=== PATIENT | female | born 1935 | race Caucasian/White ===

== ENCOUNTER → 2017-03-28 | Outpatient (CLI) | payer MEDICARE ==
--- NOTE | 2017-03-28 14:51 | XR ---
EXAMINATION TYPE: XR knee complete RT DATE OF EXAM: 03/28/2017 COMPARISON: NONE HISTORY: Muscle weakness TECHNIQUE: Right knee is examined in 3 views. FINDINGS: Joint spaces appear preserved. Some mild osteopenia may be within the joint space. No joint effusion is evident. IMPRESSION: 1. There may be some mild articular osteopenia. Correlate with bone density. 2. No acute osseous abnormality.
--- NOTE | 2017-03-28 14:53 | XR ---
EXAMINATION TYPE: XR lumbosacral spine min 4V DATE OF EXAM: 03/28/2017 COMPARISON: NONE HISTORY: Right leg gives out unable to climb stairs TECHNIQUE: 5 view lumbar spine FINDINGS: There is a grade 1 spondylolisthesis of L4 anterior and L5. Disc space narrowing is present L4-5. Milder disc space narrowing is present in the mid lumbar spine. Facet degenerative changes are present L3-4 through L5-S1. There 5 lumbar-type vertebral bodies. The pedicles are intact. IMPRESSION: 1. Grade 1 spondylolisthesis of L4 anterior and L5. 2. Facet degenerative changes lower lumbar spine.
== END | disposition home or self-care (01) ==
LOC: RADXRYALE 14:10
PROVIDERS: ATTEND Nurse Practitioner Family
DX: M43.16 Spondylolisthesis, lumbar region (principal); M47.816 Spondylosis without myelopathy or radiculopathy, lumbar region
CPT/HCPCS: 72110

== ENCOUNTER → 2017-05-27 | Outpatient (CLI) | payer MEDICARE ==
--- NOTE | 2017-05-27 16:09 | MR ---
EXAMINATION TYPE: MR lumbar spine wo con DATE OF EXAM: 05/27/2017 COMPARISON: NONE HISTORY: Rt leg weakness TECHNIQUE: Multiplanar, multisequence images of the lumbar spine were acquired. L1-L2: Normal disc appearance without desiccation. No herniation, protrusion or disc bulging. No ca nal stenosis is present. Foramina are patent bilaterally. L2-L3: Small left eccentric broad-based disc bulge is seen resulting in mild bilateral neural foramin al narrowing. Ligamentum flavum buckling is also present contributing to mild spinal canal stenosis L3-L4: A eccentric broad-based disc bulge is seen in combination with facet arthropathy and ligamentu m flavum buckling create mild to moderate bilateral neural foraminal narrowing and mild spinal canal stenosis. L4-L5: Disc uncovering is present secondary to the grade 1 anterolisthesis of L4 on L5 creating mild to moderate bilateral neural foraminal narrowing. Ligamentum flavum buckling contributes to severe sp inal canal stenosis just below the intervertebral disc space. L5-S1: Left eccentric broad-based disc bulge with small left paracentral annular tear. Mild bilateral facet arthropathy is also seen with resultant mild bilateral neural foraminal narrowing. No spinal c anal stenosis. Lumbar spine maintains vertebral body heights. There is grade 1 anterolisthesis of L4 on L5. Bone mar row signal is mildly heterogenous but overall within normal limits other than a T1 and T2 hyperintens e vertebral body hemangiomas of L2 and L5. IMPRESSION: 1. Grade 1 anterolisthesis of L4 and L5 creating mild to moderate bilateral neural foraminal narrowin g and severe spinal canal stenosis at this level partially contributed by ligamentum flavum buckling. 2. No focal disc herniation although there is multilevel generative disc disease resulting in variabl e degrees of neural foraminal narrowing most significant at L3-L4 and L4-L5. 3. Mild spinal canal stenosis at L3-L5 as a result of ligamentum flavum buckling, broad-based disc bu lges, and facet arthropathy.
== END | disposition home or self-care (01) ==
LOC: RADMRIMAIN 11:00
PROVIDERS: ATTEND Family Medicine
DX: M48.061 Spinal stenosis, lumbar region without neurogenic claudication (principal); M51.36 Other intervertebral disc degeneration, lumbar region; M51.26 Other intervertebral disc displacement, lumbar region; M43.16 Spondylolisthesis, lumbar region; M99.73 Connective tissue and disc stenosis of intervertebral foramina of lumbar region; M12.88 Other specific arthropathies, not elsewhere classified, other specified site
CPT/HCPCS: 72148

== ENCOUNTER → 2017-09-10 | Outpatient (CLI) | payer MEDICARE ==
[2017-09-10 14:15] LABS: Basophils # (A) 0.1 k/uL (0-0.2); Basophils % (A) 1 %; Eosinophils # (A) 0.3 k/uL (0-0.7); Eosinophils % (A) 6 %; HGB 13.8 gm/dL (11.4-16.0); Lymphocytes # (A) 1.9 k/uL (1.0-4.8); Lymphocytes % (A) 34 %; MCH 30.8 pg (25.0-35.0); MCHC 33.6 g/dL (31.0-37.0); MCV 91.5 fL (80.0-100.0); Mean Platelet Volume 8.1; Monocytes # (A) 0.4 k/uL (0-1.0); Monocytes % (A) 8 %; Neutrophils # (A) 2.6 k/uL (1.3-7.7); Neutrophils % (A) 48 %; Platelet Count 140 k/uL (150-450); RBC 4.48 m/uL (3.80-5.40); RDW 13.3 % (11.5-15.5); WBC 5.5 k/uL (3.8-10.6)
[2017-09-10 14:45] LABS: T4, Free (Free Thyroxine) 1.46 ng/dL (0.78-2.19)
== END | disposition home or self-care (01) ==
LOC: LABWHC1 13:16
PROVIDERS: ATTEND Psychiatry & Neurology Neurology
DX: M60.9 Myositis, unspecified (principal)
CPT/HCPCS: 36415; 82533; 84439; 84443; 85025; 86235

== ENCOUNTER 2018-05-23 16:09 | Emergency (ER) | payer MEDICARE ==
[2018-05-23 16:18] VITALS: BP 139/68; PULSE 85; RESP 18; TEMP 98
--- NOTE | 2018-05-23 17:20 | ED ---
Lower Extremity Injury HPI - General Chief Complaint: Extremity Injury, Lower Stated Complaint: Fall Time Seen by Provider: 05/23/18 16:36 Source: patient, RN notes reviewed Mode of arrival: wheelchair Limitations: no limitations - History of Present Illness Initial Comments: This is a 82-year-old female presents emergency Department chief complaint of a fall. Patient states that her knees buckled and states that she tripped and fell. Patient states she's had happened several times in the past. Patient primarily complains of left foot pain, left knee and right knee pain. Patient denies any head injury no loss conscious. Patient states there is no syncopal episode and she's had no chest pain or shortness breath. Patient states that her neighbor helped her up but it's very painful to walk on her legs. - Related Data Allergies Allergy/AdvReac Type Severity Reaction Status Date / Time No Known Allergies Allergy Verified 05/23/18 16:18 Review of Systems ROS Statement: Those systems with pertinent positive or pertinent negative responses have been documented in the HPI. ROS Other: All systems not noted in ROS Statement are negative. Past Medical History Past Medical History: Hypertension Additional Past Medical History / Comment(s): macular degeneration History of Any Multi-Drug Resistant Organisms: None Reported Past Surgical History: Hysterectomy Past Psychological History: No Psychological Hx Reported Smoking Status: Never smoker Past Alcohol Use History: None Reported Past Drug Use History: None Reported General Exam Limitations: no limitations General appearance: alert, in no apparent distress Head exam: Present: atraumatic, normocephalic, normal inspection Neck exam: Present: normal inspection, full ROM. Absent: tenderness, meningismus, lymphadenopathy Respiratory exam: Present: normal lung sounds bilaterally. Absent: respiratory distress, wheezes, rales, rhonchi, stridor Cardiovascular Exam: Present: regular rate, normal rhythm, normal heart sounds. Absent: systolic murmur, diastolic murmur, rubs, gallop, clicks Extremities exam: Present: other (Mild tenderness bilateral anterior knees, legs are neurovascular intact, there is tenderness to lateral foot on the left and distal tib-fib region on the left. No DEFORMITY no ecchymosis no lacerations. Remaining exam extremity within normal limits) Back exam: Present: full ROM. Absent: tenderness Neurological exam: Present: alert, oriented X3, CN II-XII intact, reflexes normal. Absent: motor sensory deficit Course Vital Signs 05/23/18 16:14 Temperature 98 F Pulse Rate 85 Respiratory 18 Rate Blood Pressure 139/68 O2 Sat by Pulse 98 Oximetry - Reevaluation(s) Reevaluation #1: 05/23/18 18:03 Patient was able to ambulate with walker no difficulty. Medical Decision Making - Medical Decision Making 82-year-old female presented emergency Department for a fall. X-rays obtained. A question possible quadriceps tendon tear. Patient is able to ambulate with no difficulty using a walker. Patient has appointment on Friday for follow-up return parameters were discussed. Disposition Clinical Impression: Fall, Knee pain, Sprain of left foot Disposition: HOME SELF-CARE Condition: Stable Instructions: Knee Sprain (ED), Foot Sprain (ED) Additional Instructions: Please return to the Emergency Department if symptoms worsen or any other concerns. Is patient prescribed a controlled substance at d/c from ED?: No Referrals: Glenny Cancino DO [Primary Care Provider] - 1-2 days Time of Disposition: 18:04
--- NOTE | 2018-05-23 17:32 | XR ---
EXAMINATION TYPE: XR knee complete bilateral DATE OF EXAM: 05/23/2018 CLINICAL HISTORY: Bilateral knee pain after fall injury TECHNIQUE: Three views of the bilateral knees are obtained. COMPARISON: None. FINDINGS: There is no acute fracture/dislocation evident in left knee. In the left knee there is mil d to moderate joint space loss patellofemoral compartment. Patella baja is present. In the right knee there is more prominent patella baja. There is focal soft tissue swelling superior to this raising c oncern for moderate to large suprapatellar joint effusion. There is suspected tiny fragmentation from the anterior tibial tuberosity seen on lateral view. IMPRESSION: There is suspected acute tear of the distal right quadriceps tendon with joint effusion or hematoma and inferior positioning of the patella. This can be confirmed with nonemergent MRI if de sired. Favor patella baja on the left, tear felt much less likely.
--- NOTE | 2018-05-23 17:33 | XR ---
EXAMINATION TYPE: XR tibia fibula LT DATE OF EXAM: 05/23/2018 CLINICAL HISTORY: Pain After fall injury TECHNIQUE: Two views of the left leg are obtained. COMPARISON: Same day bilateral knee x-ray. FINDINGS: There is no acute fracture or dislocation seen in the left tibia or fibula. Demineralizati on is present. Mild to moderate patellofemoral compartment joint space loss left knee is redemonstrat ed. Left ankle joint is felt within normal limits. Few small scattered phleboliths are seen in distal soft tissue. IMPRESSION: There is no acute fracture or dislocation seen in the left tibia or fibula.
--- NOTE | 2018-05-23 17:34 | XR ---
EXAMINATION TYPE: XR foot complete LT DATE OF EXAM: 05/23/2018 CLINICAL HISTORY: Pain after fall TECHNIQUE: Frontal, lateral, and oblique images of the left foot are obtained. COMPARISON: None FINDINGS: Demineralization is present which is noted lower radiographic sensitivity. The Bowers's to e is seen. There is no acute fracture/dislocation evident in the left foot. There is narrowing at the Lisfranc joints with subchondral cystic change. There is tiny superior and large inferior calcaneal spur The overlying soft tissue appears unremarkable. IMPRESSION: There is no acute fracture or dislocation in the left foot.
== END 2018-05-23 18:15 | disposition home or self-care (01) ==
LOC: EC 16:09
DX: M25.561 Pain in right knee (principal); M25.562 Pain in left knee; S93.602A Unspecified sprain of left foot, initial encounter; W01.0XXA Fall on same level from slipping, tripping and stumbling without subsequent striking against object, initial encounter
CPT/HCPCS: 99283

== ENCOUNTER → 2018-06-25 | Outpatient (CLI) | payer MEDICARE ==
--- NOTE | 2018-06-25 14:31 | BD ---
EXAMINATION TYPE: Axial Bone Density DATE OF EXAM: 06/25/2018 COMPARISON: 03.11.2016 CLINICAL HISTORY: 82 YR OLD FEMALE....ICD-10 CODE: M81.8 OSTEOPOROSIS Height: 60 Weight: 109 FRAX RISK QUESTIONS: Family History (Parent hip fracture): YES RISK FACTORS HISTORY OF: Family History of Osteoporosis: YES, HER MOTHER, WITH HIP FX Postmenopausal woman: YES, AT 56 YRS OLD Lost more than 2 inches in height since high school: YES Frequent falls: USES WALKER, RECENT FALL MEDICATIONS: Osteoporosis Medications: FOSAMAX, FOR ABOUT 2-3 YRS Additional Medications: BP MED, CALCIUM WITH D, Additional History: RECENT FALL, TEAR IN MENISCUS OF RT KNEE, MYOPATHY BOTH LEGS EXAM MEASUREMENTS: Bone mineral densitometry was performed using the Arzeda System. Bone mineral density as measured about the Lumbar spine is: ----- L1-L4(G/cm2): 0.978 T Score Values are as follows: ----- L1: -1.9 ----- L2: -2.6 ----- L3: -1.4 ----- L4: -1.2 ----- L1-L4: -1.7 Bone mineral density has: Increased 8.0since study of: 03.11.2016 Bone mineral density about the R hip (g/cm2): 0.650 Bone mineral density about the L hip (g/cm2): 0.650 T Score values are as follows: -----R Neck: -2.3 -----L Neck: -1.6 -----R Total: -2.8 -----L Total: -2.8 Bone mineral density has: Increased 1.6since study of: 03.11.2016 FRAX%s: THERE IS A 39.3% CHANCE FOR A MAJOR OSTEOPOROTIC FX AND 30.6% FOR HIP FX....PROBABILITY O F FX IN 10 YRS TIME IMPRESSION: 1. Osteoporosis bilateral femora. 2. Osteopenia lumbar spine. NOTE: T-SCORE=SD OF THE YOUNG ADULT MEAN.
--- NOTE | 2018-06-29 07:04 | MM ---
Reason for exam: screening (asymptomatic). Last mammogram was performed 1 year and 1 month ago. History: Patient is postmenopausal and has history of other cancer at age 56. Family history of breast cancer in mother at age 76 and breast cancer in aunt. Physical Findings: A clinical breast exam by your physician is recommended on an annual basis and results should be correlated with mammographic findings. MG 3D Screening Mammo W/Cad Bilateral CC and MLO view(s) were taken. Prior study comparison: May 27, 2017, bilateral MG 3d screening mammo w/cad. March 11, 2016, bilateral MG 3d screening mammo w/cad. The breast tissue is heterogeneously dense. This may lower the sensitivity of mammography. Stable benign calcifications. There is no discrete abnormality. No significant changes when compared with prior studies. ASSESSMENT: Benign, BI-RAD 2 RECOMMENDATION: Routine screening mammogram of both breasts in 1 year.
== END | disposition home or self-care (01) ==
LOC: RADMAMWWP 13:26
PROVIDERS: ATTEND Family Medicine
DX: Z12.31 Encounter for screening mammogram for malignant neoplasm of breast (principal); M81.0 Age-related osteoporosis without current pathological fracture; M85.88 Other specified disorders of bone density and structure, other site
CPT/HCPCS: 77063; 77067; 77080

== ENCOUNTER → 2019-07-21 | Outpatient (CLI) | payer MEDICARE ==
--- NOTE | 2019-07-23 11:05 | MM ---
Reason for exam: screening (asymptomatic). Last mammogram was performed 1 year and 1 month ago. History: Patient is postmenopausal and has history of other cancer at age 56. Family history of breast cancer in mother at age 76 and breast cancer in aunt. Physical Findings: A clinical breast exam by your physician is recommended on an annual basis and results should be correlated with mammographic findings. MG 3D Screening Mammo W/Cad Bilateral CC and MLO view(s) were taken. Prior study comparison: June 25, 2018, bilateral MG 3d screening mammo w/cad. May 27, 2017, bilateral MG 3d screening mammo w/cad. March 11, 2016, bilateral MG 3d screening mammo w/cad. March 08, 2015, bilateral MG screening mammo w CAD. No significant changes when compared with prior studies. ASSESSMENT: Benign, BI-RAD 2 RECOMMENDATION: Routine screening mammogram of both breasts in 1 year.
== END | disposition home or self-care (01) ==
LOC: RADMAMWWP 11:20
PROVIDERS: ATTEND Family Medicine
DX: Z12.31 Encounter for screening mammogram for malignant neoplasm of breast (principal)
CPT/HCPCS: 77063; 77067

== ENCOUNTER 2019-07-29 11:19 | Inpatient (IN) | payer MEDICARE ==
--- NOTE | 2019-07-29 11:50 | ED ---
General Adult HPI - General Chief complaint: Extremity Injury, Lower Stated complaint: Fall Time Seen by Provider: 07/29/19 11:30 Source: patient, RN notes reviewed, old records reviewed Mode of arrival: ambulatory Limitations: no limitations - History of Present Illness Initial comments: This is an 83-year-old female presents to the emergency department complaining of bilateral knee pain. Patient suggested that she was using her walker and her legs are normally weak and she felt a little weak and she fell straightforward onto her knees and since then the nasal bone swollen up and her right knee is much more painful when she tries to walk on it she's been unable to ambulate with a walker because the pain. Patient denies any hip pain patient denies any ankle or foot pain. Patient does any other injury. Patient did not hit her head or neck. - Related Data Allergies Allergy/AdvReac Type Severity Reaction Status Date / Time No Known Allergies Allergy Verified 07/29/19 11:31 Review of Systems ROS Statement: Those systems with pertinent positive or pertinent negative responses have been documented in the HPI. ROS Other: All systems not noted in ROS Statement are negative. Past Medical History Past Medical History: Hypertension Additional Past Medical History / Comment(s): macular degeneration History of Any Multi-Drug Resistant Organisms: None Reported Past Surgical History: Hysterectomy Past Psychological History: No Psychological Hx Reported Smoking Status: Never smoker Past Alcohol Use History: None Reported Past Drug Use History: None Reported General Exam - General Exam Comments Initial Comments: GENERAL Patient is well-developed and well-nourished. Patient is in mild distress. EYES Patient's pupils are equal and round. Extraocular motion is intact SKIN Unremarkable NEURO The patient is alert and oriented 3 PYSCH Patient has normal interpersonal interactions. MUSCULOSKELETAL patient has no ligament laxity however she's got bilateral anterior knee pain with bilateral effusions. patient has no ability to extend at the knee bilaterally Limitations: no limitations Course Vital Signs 07/29/19 11:29 Temperature 98.1 F Pulse Rate 93 Respiratory 20 Rate Blood Pressure 155/70 O2 Sat by Pulse 99 Oximetry Medical Decision Making - Medical Decision Making patient's x-rays show bilateral patellar fractures. Patient is unable to extend either leg. patient will be admitted to Dr. Arcos. patient will have bilateral knee immobilizers placed. Disposition Clinical Impression: Patellar sleeve fracture of left knee, Patellar sleeve fracture of right knee Disposition: ADMITTED IP TO THIS HOSP Referrals: Glenny Cancino DO [Primary Care Provider] - 1-2 days Time of Disposition: 13:01
--- NOTE | 2019-07-29 12:25 | XR ---
Bilateral knees HISTORY: Trauma and pain with swelling 4 views of each knee submitted on a total of 8 images and correlated to prior left leg dated 05/23/20 18 There is soft tissue swelling present. Bone mineralization is reduced. Alignment is maintained. No di slocation. Patellar fracture is noted transversely on the left with displacement. Lucency also presen t through the right patella in a transverse orientation. The right patella is low-lying. Ossific dens ities present inferior to the right patella on the lateral exam. Suprapatellar increased density is p resent bilaterally consistent with joint effusions. Small ossific density present along the left vazquez llar fracture line. IMPRESSION: Bilateral comminuted patellar fractures are noted. Possible quadriceps tendon rupture on the right. Joint effusions, soft tissue swelling. Osteopenia.
[2019-07-29] MEDS ORDERED: SODIUM CHLORIDE 0.9% 1,000 ML IV ONE (13:01)
[2019-07-29 13:39] LABS: Basophils # (A) 0.2 k/uL (0-0.2); Basophils % (A) 3 %; Eosinophils # (A) 0.2 k/uL (0-0.7); Eosinophils % (A) 3 %; HCT 36.9 % (34.0-46.0); HGB 12.2 gm/dL (11.4-16.0); Lymphocytes # (A) 1.2 k/uL (1.0-4.8); Lymphocytes % (A) 15 %; MCH 30.6 pg (25.0-35.0); MCHC 33.1 g/dL (31.0-37.0); MCV 92.6 fL (80.0-100.0); Mean Platelet Volume 7.5; Monocytes # (A) 0.7 k/uL (0-1.0); Monocytes % (A) 8 %; Neutrophils # (A) 5.8 k/uL (1.3-7.7); Neutrophils % (A) 70 %; Platelet Count 244 k/uL (150-450); RBC 3.99 m/uL (3.80-5.40); RDW 12.8 % (11.5-15.5); WBC 8.2 k/uL (3.8-10.6)
[2019-07-29 13:47] LABS: Partial Thromboplastin Time 25.6 sec (22.0-30.0); Prothrombin Time 10.7 sec (9.0-12.0)
[2019-07-29 13:48] LABS: ALT 28 U/L (4-34); AST 36 U/L (14-36); African American GFR (CKD) >90 (>60 ml/min/1.73 sqM); Albumin 3.9 g/dL (3.5-5.0); Alkaline Phosphatase 45 U/L (38-126); Anion Gap 8 mmol/L; Blood Urea Nitrogen 12 mg/dL (7-17); Calcium 9.2 mg/dL (8.4-10.2); Carbon Dioxide 25 mmol/L (22-30); Chloride 103 mmol/L (98-107); Glucose 77 mg/dL (74-99); Non-African American GFR(CKD) >90 (>60 ml/min/1.73 sqM); Potassium 3.8 mmol/L (3.5-5.1); Sodium 136 mmol/L (137-145); Total Bilirubin 0.4 mg/dL (0.2-1.3)
--- NOTE | 2019-07-29 16:49 | P.HPOR ---
<Michelle Cabrera Elizabeth - Last Filed: 07/29/19 16:32> History of Present Illness H&P Date: 07/29/19 Chief Complaint: bilateral patella fractures The patient is a pleasant 83-year-old female who presented to the emergency department today with bilateral knee pain after sustaining a fall at home yesterday. She has a medical history of hypertension and macular degeneration. She states that she was using her 4 wheeled walker and her right leg gave out and she fell onto her knees, mostly on the right knee. The patient states that her right leg has been weaker over the last few years and she is unable to stand normally from a chair to a standing position using her right leg due to the weakness. She does live alone and uses her 4 wheeled walker all the time for ambulation. X-rays were taken in the emergency department and bilateral patella fractures were found. There is also a suspect quad tendon rupture or partial tear on the right. She was placed in bilateral knee immobilizers and admitted to the hospital for further evaluation by orthopedic surgery, for pain control, and mobility. Upon exam in the emergency department this afternoon, the patient states her pain is controlled. No other injuries noted during the fall. Denies head injury and neck pain. Review of Systems Constitutional: Denies chills, Denies fatigue, Denies fever Cardiovascular: Denies chest pain, Denies shortness of breath Respiratory: Denies cough Gastrointestinal: Denies diarrhea, Denies nausea, Denies vomiting Musculoskeletal: bilateral: hip swelling, knee pain, knee stiffness Past Medical History Past Medical History: Hypertension Additional Past Medical History / Comment(s): macular degeneration History of Any Multi-Drug Resistant Organisms: None Reported Past Surgical History: Hysterectomy Past Psychological History: No Psychological Hx Reported Smoking Status: Never smoker Past Alcohol Use History: None Reported Past Drug Use History: None Reported Medications and Allergies Home Medications Medication Instructions Recorded Confirmed Type Alendronate Sodium [Fosamax] 70 mg PO MO 07/29/19 07/29/19 History Alpha Lipoic Acid 200 mg PO DAILY 07/29/19 07/29/19 History Aspirin EC [Ecotrin Low Dose] 81 mg PO DAILY 07/29/19 07/29/19 History Calcium Carbonate/Vitamin D3 2 tab PO DAILY 07/29/19 07/29/19 History [Calcium 600-Vit D3 400 Tablet] Latanoprost [Xalatan 0.005%] 1 drop BOTH EYES HS 12/19/19 12/19/19 History Lisinopril [Zestril] 10 mg PO DAILY 07/29/19 07/29/19 History [place]-3 Fatty Acids/Fish Oil [Fish 1 cap PO DAILY 07/29/19 07/29/19 History Oil 1,000 mg Softgel] Vit C/E/Zn/Coppr/Lutein/Zeaxan 1 cap PO BID 07/29/19 07/29/19 History [Preservision Areds 2 Softgel] levOCARNitine [l-Carnitine] 500 mg PO BID 07/29/19 07/29/19 History Allergies Allergy/AdvReac Type Severity Reaction Status Date / Time No Known Allergies Allergy Verified 07/29/19 13:08 Physical Examination The patient is a very pleasant 83-year-old female who is in no acute distress. She is alert and oriented 3. Exam of the bilateral legs reveal 1+ effusion to the left knee and 2-3+ effusion on the right. there is ecchymosis present to the bilateral anterior knee. The patient is able to lift her bilateral legs slightly off the bed and able to slightly flex the knee. Bilateral quad muscles appear to be firing. Range of motion of the knees were not tested at this time. There is pain to palpation to the anterior knee/patella bilaterally. Bilateral calves are soft and nontender. Good foot and ankle motion bilaterally. Neurological and circulatory status is intact. 2+ dorsalis pedis pulse bilate rally. Results - Labs Labs: Abnormal Lab Results - Last 24 Hours (Table) 07/29/19 Range/Units 13:30 Sodium 136 L (137-145) mmol/L Creatinine 0.36 L (0.52-1.04) mg/dL H & H 07/29/19 Range/Units 13:30 Hgb 12.2 (11.4-16.0) gm/dL Hct 36.9 (34.0-46.0) % Coagulation 07/29/19 Range/Units 13:30 INR 1.0 (<1.2) Result Diagrams: 07/29/19 13:30 07/29/19 13:30 - Diagnostic results Knee x-ray: image reviewed (X-rays of the bilateral knees reveal a transverse patella fracture on the left with displacement. There is a lucency in the right patella is well. The right patella is low-lying/patella baja which may represent a tendon rupture. Bilateral joint effusion.) Assessment and Plan (1) Right patella fracture Current Visit: Yes Status: Acute Code(s): S82.001A - UNSP FRACTURE OF RIGHT PATELLA, INIT FOR CLOS FX SNOMED Code(s): 76303234 (2) Left patella fracture Current Visit: Yes Status: Acute Code(s): S82.002A - UNSP FRACTURE OF LEFT PATELLA, INIT FOR CLOS FX SNOMED Code(s): 16591277 (3) Injury of quadriceps tendon Current Visit: Yes Status: Acute Code(s): S76.109A - UNSP INJURY OF UNSP QUADRICEPS MUSC/FASC/TEND, INIT SNOMED Code(s): 089396889 Plan: The clinical and x-ray findings were discussed at length with the patient and the patient's son at the bedside. The case was discussed with Dr. Arcos. The patient was placed in bilateral knee immobilizers. An MRI of the right knee has been ordered to evaluate the quad tendon. The repeat x-ray of the left knee has been ordered to evaluate the patella position while the knee immobilizer. Remain on bedside until further testing is completed. Continue pain control. Ice to the bilateral knees. She will be NPO at midnight for possible surgical intervention depending on her MRI and further evaluation by Dr. Arcos. <Joe Arcos - Last Filed: 07/30/19 06:56> Results - Labs Labs: Abnormal Lab Results - Last 24 Hours (Table) 07/29/19 Range/Units 13:30 Sodium 136 L (137-145) mmol/L Creatinine 0.36 L (0.52-1.04) mg/dL H & H 07/29/19 Range/Units 13:30 Hgb 12.2 (11.4-16.0) gm/dL Hct 36.9 (34.0-46.0) % Coagulation 07/29/19 Range/Units 13:30 INR 1.0 (<1.2) Result Diagrams: 07/29/19 13:30 07/29/19 13:30 Assessment and Plan Plan: Discussed with TRISTAN Cabrera and agree with above. Patient was subsequently seen and examined by myself as well. S: The patient was seen and examined at the bedside. Her son is present and provides additional history. She states that her legs gave out and she fell, landing on both knees. She reports a long history of trouble walking, with more weakness in the right leg. She denies known history of low back issues. She uses a rolling walker at all times, even around the house. O: Prominent 3+ effusions in both knees, but much worse on the right. Mild ecchymosis but no abrasions or lacerations. Large palpable defect in the body of the left patella. The fracture is palpable on the right but there is no significant diastasis. She does have moderate tenderness along the medial aspect of the right tibial plateau. Minimal tenderness at the tibial tubercle. She is unable to hold straight leg raise on either side; however, she admits she could not do this before the injury. The quadriceps insertion at the right patella is not easily palpable due to the effusion. Minimal pain with active contraction of the quads. Imaging: Transverse fractures of bilateral patellas. The left is significantly displaced with greater than a 2 cm diastasis. There is no significant step-off or fracture gap on the right. There is note of some cortical irregularity near the tibial tubercle on the lateral view. Possible fracture line near the intercondylar eminence on the AP view. Noticeable asymmetry in position of the patellas, with prominent baja on the right. A: Bilateral patella fractures status post fall Concern for right tibial plateau fracture; possible quadriceps tendon rupture P: I discussed the clinical and radiographic findings in detail with the patient and her son. We reviewed the pertinent anatomy. The pros and cons of various treatment options were discussed, both surgical and nonsurgical. The left patella fracture is substantially displaced and I recommended operative treatment. Based on the appearance of her right knee, there is concern for possible tibial plateau fracture. I recommended obtaining a CT scan to further evaluate this. We may consider an MRI if the integrity of the quadriceps tendon is not well visualized on the CT. The knee immobilizers may be opened as needed to apply ice. She may weight-bear as tolerated on the left with the knee immobilizer in place and a standby assist. Touch down weightbearing only on the right. Questions were invited and answered. They expressed understanding and were in agreement with the initial treatment plan. Further recommendations to follow after review of the CT. Joe Arcos D.O. [facility]
--- NOTE | 2019-07-29 17:17 | XR ---
EXAMINATION TYPE: XR knee limited LT DATE OF EXAM: 07/29/2019 COMPARISON: Today HISTORY: Knee fracture TECHNIQUE: 2 views FINDINGS: There is transverse fracture through the patella with separation of the fragments up to 1.5 cm. There is probably knee joint effusion. There is no dislocation. IMPRESSION: Displaced transverse fracture of the patella without significant change in position macy red to exam earlier today 4 hours ago.
[2019-07-29] MEDS ORDERED: ACETAMINOPHEN TAB 325 MG TAB PO PRN (20:24)
[2019-07-29] MEDS: LATANOPROST 0.005% OPHTH DROPS 2.5 ML BTL BOTH EYES SCH (21:52)
[2019-07-30] MEDS: HYDROcodone/APAP 5-325MG 1 EACH TAB PO PRN ×2 (00:07→22:04)
[2019-07-30] MEDS: CALCIUM CARB-VIT D 500MG-200UN 1 EACH TAB PO SCH (07:51)
[2019-07-30] MEDS ORDERED: LISINOPRIL 10 MG TAB PO SCH (09:00)
--- NOTE | 2019-07-30 10:07 | CT ---
EXAMINATION TYPE: CT lower extremity RT wo con DATE OF EXAM: 07/30/2019 COMPARISON: Plain film radiographs of 07/29/2019 HISTORY: Evaluate tibial plateau fracture CT DLP: 370 mGycm Automated exposure control for dose reduction was used. Unenhanced CT of the right knee was performed in the axial coronal and sagittal planes. 3-D consistent reconstruction was obtained at a separate w orkstation. FINDINGS: There is a fracture noted through the mid body of the patella with displacement of 2 mm. No additiona l fractures are identified. The tibial plateau is intact without evidence for fracture. No evidence f or dislocation. There is a moderate-sized suprapatellar hemarthrosis. Soft tissue edema is noted. Mil d degenerative narrowing is noted of the medial tibiofemoral joint space. There is evidence of osteop enia. IMPRESSION: MILDLY DISPLACED FRACTURE OF THE PATELLA. HEMARTHROSIS NOTED. NO EVIDENCE FOR TIBIAL PLATEAU FRACT URE.
[2019-07-30] MEDS: LATANOPROST 0.005% OPHTH DROPS 2.5 ML BTL BOTH EYES SCH (20:33)
[2019-07-31] MEDS: CALCIUM CARB-VIT D 500MG-200UN 1 EACH TAB PO SCH (08:49)
[2019-07-31] MEDS: PRESERVISION AREDS PO SCH ×2 (09:00→21:07)
--- NOTE | 2019-07-31 11:13 | P.PN ---
Subjective Progress Note Date: 07/30/19 The patient states that no pain at rest and minimal pain with motion. She has not been out of bed. She denies any new areas of pain. Objective - Vital Signs Vital signs: Vital Signs Temp 98.1 F 07/31/19 06:09 Pulse 81 07/31/19 06:09 Resp 14 07/31/19 06:09 BP 133/65 07/31/19 06:09 Pulse Ox 98 07/31/19 06:09 Intake & Output 07/30/19 07/31/19 07/31/19 18:59 06:59 18:59 Output Total 300 Balance -300 Weight 49.895 kg Output: Urine 300 Other: Voiding Method Bedpan Bedpan # Voids 1 1 1 # Bowel Movements 0 - Exam Prominent visible effusions in both knees, not significantly changed from prior exam. The effusion in the right knee is somewhat tense but minimally tender to palpation. Intact light touch sensation and gross motor function distally. Both calves are soft and nontender. - Labs CBC & Chem 7: 07/29/19 13:30 07/29/19 13:30 - Imaging and Cardiology CT scan of the right knee was reviewed and interpreted from an orthopedic standpoint. This demonstrates an oblique fracture across the central third of the right patella. Minimal comminution and displacement. No significant step- off or diastasis. No obvious fractures identified in the tibial plateau or distal femur. Note is made of extensive radiolucencies throughout the distal femur, tibial pura teau and patellas of both knees. These could represent normal cystic degenerative changes from arthritis; however, they are quite diffuse and some are relatively far from the chondral surfaces. A malignant process, such as multiple myeloma or metastasis, is not excluded. Assessment and Plan Assessment: Bilateral patella fractures status post mechanical fall Chronic lower extremity weakness and difficulty ambulating Plan: I reviewed the CT findings with the patient. The right patella fracture is minimally displaced and I recommended nonsurgical treatment. We discussed the pros and cons of surgical versus nonsurgical the left patella fracture. The extensive lucencies, seen in multiple bones of both knees on the CT scan, could potentially represent neoplastic process such metastatic cancer or multiple myeloma. I recommended consulting hematology-oncology for evaluation and further recommendations prior to making a definitive treatment plan. The patient and agreement. She may weight-bear as tolerated on both lower extremities with a walker and standby assist. Fall precautions. Knee immobilizers must be worn when ambulating. The immobilizers may be opened at rest for comfort and to apply ice. If the effusion on the right becomes more symptomatic, we may consider aspiration. Continue PRN pain management. Joe Arcos D.O. [facility]
[2019-07-31] MEDS: ENOXAPARIN 40 MG/0.4 ML SYRINGE SQ SCH (12:11)
--- NOTE | 2019-07-31 14:34 | P.CONS ---
History of Present Illness - Reason for Consult Consult date: 07/30/19 Management of hypertension preoperative clearance - History of Present Illness 83-year-old female had a mechanical fall does have macular degeneration does have history of hypertension does use an SCAR inhibitor for hypertension came in after a mechanical fall has been felt weak and she felt like her legs gave up. Patient is found to have bilateral patellar fracture patient is denying any significant pain at this time. I'm unsure whether patient would undergo surgical intervention because of which I'll hold off on the antidepressant medication to prevent any perioperative hypotension. Review of Systems REVIEW OF SYSTEMS: CONSTITUTIONAL: No fever, no malaise, no fatigue. HEENT: No recent visual problems or hearing problems. Denied any sore throat. CARDIOVASCULAR: No chest pain, orthopnea, PND, no palpitations, no syncope. PULMONARY: No shortness of breath, no cough, no hemoptysis. GASTROINTESTINAL: No diarrhea, no nausea, no vomiting, no abdominal pain. NEUROLOGICAL: No headaches, no weakness, no numbness. HEMATOLOGICAL: Denies any bleeding or petechiae. GENITOURINARY: Denies any burning micturition, frequency, or urgency. MUSCULOSKELETAL/RHEUMATOLOGICAL: Denies any joint pain, swelling, or any muscle pain. ENDOCRINE: Denies any polyuria or polydipsia. The rest of the 14-point review of systems is negative. Past Medical History Past Medical History: Hypertension Additional Past Medical History / Comment(s): macular degeneration. "Muscle atrophy with unknown diagnosis because patient would not complte muscle biopsy per neuros reccomendations. " History of Any Multi-Drug Resistant Organisms: None Reported Past Surgical History: Hysterectomy Past Anesthesia/Blood Transfusion Reactions: No Reported Reaction Past Psychological History: No Psychological Hx Reported Smoking Status: Never smoker Past Alcohol Use History: None Reported Past Drug Use History: None Reported Medications and Allergies Home Medications Medication Instructions Recorded Confirmed Type Alendronate Sodium [Fosamax] 70 mg PO MO 07/29/19 07/29/19 History Alpha Lipoic Acid 200 mg PO DAILY 07/29/19 07/29/19 History Aspirin EC [Ecotrin Low Dose] 81 mg PO DAILY 07/29/19 07/29/19 History Calcium Carbonate/Vitamin D3 2 tab PO DAILY 07/29/19 07/29/19 History [Calcium 600-Vit D3 400 Tablet] Latanoprost [Xalatan 0.005%] 1 drop BOTH EYES HS 12/19/19 12/19/19 History Lisinopril [Zestril] 10 mg PO DAILY 07/29/19 07/29/19 History [place]-3 Fatty Acids/Fish Oil [Fish 1 cap PO DAILY 07/29/19 07/29/19 History Oil 1,000 mg Softgel] Vit C/E/Zn/Coppr/Lutein/Zeaxan 1 cap PO BID 07/29/19 07/29/19 History [Preservision Areds 2 Softgel] levOCARNitine [l-Carnitine] 500 mg PO BID 07/29/19 07/29/19 History Allergies Allergy/AdvReac Type Severity Reaction Status Date / Time No Known Allergies Allergy Verified 07/29/19 13:08 Physical Exam Vitals: Vital Signs Temp Pulse Resp BP Pulse Ox 07/31/19 06:09 98.1 F 81 14 133/65 98 07/30/19 20:47 98.1 F 84 16 123/67 97 07/30/19 16:26 96 14 Intake and Output 07/30/19 07/31/19 07/31/19 22:59 06:59 14:59 Other: Voiding Method Bedpan Bedpan # Voids 1 1 1 # Bowel Movements 0 PHYSICAL EXAMINATION: GENERAL: The patient is alert and oriented x3, not in any acute distress. Well developed, well nourished. HEENT: Pupils are round and equally reacting to light. EOMI. No scleral icterus. No conjunctival pallor. Normocephalic, atraumatic. No pharyngeal erythema. No thyromegaly. CARDIOVASCULAR: S1 and S2 present. No murmurs, rubs, or gallops. PULMONARY: Chest is clear to auscultation, no wheezing or crackles. ABDOMEN: Soft, nontender, nondistended, normoactive bowel sounds. No palpable organomegaly. MUSCULOSKELETAL: No joint swelling or deformity. EXTREMITIES: No cyanosis, clubbing, or pedal edema. Both legs are wrapped NEUROLOGICAL: Gross neurological examination did not reveal any focal deficits. SKIN: No rashes. Results CBC & Chem 7: 07/29/19 13:30 07/29/19 13:30 Assessment and Plan Plan: -Hypertension: Unsure whether patient is going to go for surgery because of which I'll hold off on SCAR inhibitor which will be restarted depending on her vitals and holding this medication to prevent any perioperative hypotension which is expected particularly considering her age. 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
--- NOTE | 2019-07-31 14:36 | P.PN ---
Subjective Patient is admitted for bilateral patellar fracture there was a concern about multiple myeloma because of which a hematology was consulted. Patient labs symptomatology and radiological imaging is not consistent with multiple bilateral patient does have osteoporosis. Patient is probably okay to go for surgery from medical perspective Constitutional: Denied any fatigue denied any fever. Cardio vascular: denied any chest pain, palpitations Gastrointestinal denied any nausea vomiting Pulmonary: Denied any shortness of breath cough Neurologic denied any new focal deficits All inpatient medications were reviewed and appropriate changes in these medications as dictated in the interval history and assessment and plan. Objective - Vital Signs Vital signs: Vital Signs Temp 98.1 F 07/31/19 06:09 Pulse 81 07/31/19 06:09 Resp 14 07/31/19 06:09 BP 133/65 07/31/19 06:09 Pulse Ox 98 07/31/19 06:09 Intake & Output 07/30/19 07/31/19 07/31/19 18:59 06:59 18:59 Output Total 300 Balance -300 Weight 49.895 kg Output: Urine 300 Other: Voiding Method Bedpan Bedpan # Voids 1 1 1 # Bowel Movements 0 - Exam PHYSICAL EXAMINATION: GENERAL: The patient is alert and oriented x3, not in any acute distress. Well developed, well nourished. HEENT: Pupils are round and equally reacting to light. EOMI. No scleral icterus. No conjunctival pallor. Normocephalic, atraumatic. No pharyngeal erythema. No thyromegaly. CARDIOVASCULAR: S1 and S2 present. No murmurs, rubs, or gallops. PULMONARY: Chest is clear to auscultation, no wheezing or crackles. ABDOMEN: Soft, nontender, nondistended, normoactive bowel sounds. No palpable organomegaly. MUSCULOSKELETAL: No joint swelling or deformity. EXTREMITIES: No cyanosis, clubbing, or pedal edema. Both legs are wrapped NEUROLOGICAL: Gross neurological examination did not reveal any focal deficits. SKIN: No rashes. - Labs CBC & Chem 7: 07/29/19 13:30 07/29/19 13:30 Assessment and Plan Plan: -Hypertension: Patient blood pressure is doing well without SCAR inhibitor will continue to hold SCAR inhibitor. -Bilateral patellar fracture patient may have osteoporosis and had a fracture further management as per primary service as recommended to avoid the opiates for pain and use a nonsteroidal anti-inflammatories for pain. CAT scans did show severe osteoporosis but there is no evidence of lytic lesions I reviewed the CAT scans of lower extremities -Age-related macular degeneration -Age-related related osteoporosis -DVT prophylaxis as per primary service
[2019-07-31] MEDS: LATANOPROST 0.005% OPHTH DROPS 2.5 ML BTL BOTH EYES SCH (20:54)
[2019-07-31] MEDS: HYDROcodone/APAP 5-325MG 1 EACH TAB PO PRN (21:08)
--- NOTE | 2019-07-31 21:37 | CONS ---
CONSULTATION DATE OF SERVICE: July 31, 2019. REASON FOR CONSULTATION: Lytic lesion. HISTORY OF PRESENT ILLNESS: Daria is a very pleasant, 83 years old lady who came into the hospital because she was walking using her walker. Her knees gave out and she fell and she ended up with bilateral knee fracture. She had x-rays of her knees and a CT scan of her knees, which revealed a displaced transverse fracture of the patella in her left knee and x-ray of her knees, which revealed bilateral patellar fracture and possible quadriceps tendon rupture of the right and along with joint effusion and there was evidence of osteopenia. She did also have a CT scan of her lower extremity, of her right lower extremity, which revealed mildly displaced fracture of the patella with hemarthrosis. I was asked to see the patient for possible lytic lesion in her bone. Prior to her falling, the patient has been doing fairly well. She denies any previous history of known broken bone. She ambulates with a walker. She denies any fever, chills, nausea, vomiting. Her weight is stable and she is otherwise a relatively active lady. PAST MEDICAL HISTORY: Significant for hypertension, macular degeneration and she has muscle atrophy. She has a history of hypertension. SOCIAL HISTORY: No history of smoking, alcohol abuse or substance abuse. REVIEW OF SYSTEMS: As stated above in the history of present illness. FAMILY HISTORY: For malignancy. Her mother had breast cancer. MEDICATIONS: Current medication reviewed and allergies are reviewed in her electronic record. PHYSICAL EXAMINATION: On physical examination, the patient is alert and oriented x3. She does not appear to be in distress. Her vital signs are temperature 98.6, pulse is 86, regular, respirations 16, blood pressure 143/73. HEENT: Normocephalic, atraumatic. No scleral icterus. NECK: Supple. No jugular venous distention. Chest equal expansion bilaterally. LUNGS: Clear to auscultation and percussion. Heart is regular rate and rhythm. ABDOMEN: Soft. No obvious organomegaly or masses. Bowel sounds present. Extremities revealed no significant edema. Skin no significant bruise or petechia. LYMPHATICS: No peripherally enlarged cervical or supraclavicular lymph node. LABORATORY DATA: WBC are 8.2, hemoglobin 12.2, hematocrit 36.9, platelet 244. Sodium 136, potassium 3.8, chloride is 103, CO2 is 25, BUN is 12, creatinine 0.36 and her calcium level is 9.2. IMPRESSION AND RECOMMENDATIONS: Bilateral knee fracture. It does not appear to be pathologic. I did review her x-rays with Dr. Porter in radiology department today. There is no obvious lytic lesion to suggest any plasma cell dyscrasia or metastatic malignancy. She does have some osteopenia however. Also based on her laboratory workup, there is no evidence of anemia. No evidence of hypercalcemia or renal dysfunction to suggest plasma cell dyscrasia. Clinically, metastatic malignancy also felt to be all very unlikely. To complete the workup, however, I will obtain serum protein electrophoresis and immunofixation. The above was discussed in detail with the patient and family at bedside and I have answered all the questions. Thank you very much for asking me to participate in this nice lady. MMSALBADORL / IJN: [id number] /
[2019-08-01] MEDS: PRESERVISION AREDS PO SCH ×2 (08:29→20:15)
[2019-08-01] MEDS: ENOXAPARIN 40 MG/0.4 ML SYRINGE SQ SCH (08:29)
[2019-08-01] MEDS: CALCIUM CARB-VIT D 500MG-200UN 1 EACH TAB PO SCH (08:29)
--- NOTE | 2019-08-01 10:53 | P.PN ---
Subjective Progress Note Date: 08/01/19 The patient states that there is very little pain. She was able to get up with assistance and walk to the door. She did not find this particularly uncomfortable. Overall, she feels she is doing well. Objective - Vital Signs Vital signs: Vital Signs Temp 97.7 F 08/01/19 05:50 Pulse 85 08/01/19 05:50 Resp 20 08/01/19 05:50 BP 126/69 08/01/19 05:50 Pulse Ox 97 08/01/19 05:50 Intake & Output 07/31/19 08/01/19 08/01/19 18:59 06:59 18:59 Intake Total 750 Balance 750 Intake: Oral 750 Other: # Voids 2 2 - Exam General: Lying reclined in bed, eyes closed upon entering. Appears comfortable. Musculoskeletal: No ulcerations, ecchymosis or erythema around the left knee. Large palpable diastases of the fracture site. With the right knee, she is able to provide some resistance against passive flexion but is unable to actively extend. The effusion on the right is still quite large. Intact light touch sensation bilaterally and gross motor function distally in both legs. - Labs CBC & Chem 7: 07/29/19 13:30 07/29/19 13:30 Assessment and Plan Assessment: 1. Bilateral patella fractures status post mechanical fall 2. Tricompartmental osteoarthritis of bilateral knees 3. Chronic lower extremity weakness and difficulty ambulating Plan: Low probability for malignant osseous process - appreciate Dr. Ford's input. We discussed treatment options in detail for the fractures. I recommended not surgical treatment for the right side and open reduction and internal fixation for the left patella fracture. We reviewed the surgical plan and expected postoperative course. The patient expressed understanding and agreement; she would like to proceed with surgery as outlined above. Plan for OR on Friday. She may continue weightbearing as tolerated in the knee immobilizers with assist and a walker. Maintain fall precautions. The immobilizers may be opened at rest for comfort and to apply ice. Continue PRN pain management. The patient will be in bilateral knee immobilizers for 6-8 weeks after surgery and her ability to ambulate independently will be very restricted. She will definitely require rehab placement after surgery. Joe Arcos D.O. [facility]
--- NOTE | 2019-08-01 14:24 | P.PN ---
Subjective Patient is admitted for bilateral patellar fracture there was a concern about multiple myeloma because of which a hematology was consulted. Patient labs symptomatology and radiological imaging is not consistent with multiple bilateral patient does have osteoporosis. Patient is probably okay to go for surgery from medical perspective 08/01/2019 Patient is clinically doing well overnight events patient will undergo surgical intervention for patellar fracture and the aspiration of fluid from one of the fracture sites on Friday Constitutional: Denied any fatigue denied any fever. Cardio vascular: denied any chest pain, palpitations Gastrointestinal denied any nausea vomiting Pulmonary: Denied any shortness of breath cough Neurologic denied any new focal deficits All inpatient medications were reviewed and appropriate changes in these m edications as dictated in the interval history and assessment and plan. Objective - Vital Signs Vital signs: Vital Signs Temp 97.7 F 08/01/19 05:50 Pulse 85 08/01/19 05:50 Resp 20 08/01/19 05:50 BP 126/69 08/01/19 05:50 Pulse Ox 97 08/01/19 05:50 Intake & Output 07/31/19 08/01/19 08/01/19 18:59 06:59 18:59 Intake Total 750 Balance 750 Intake: Oral 750 Other: # Voids 2 2 - Exam PHYSICAL EXAMINATION: GENERAL: The patient is alert and oriented x3, not in any acute distress. Well developed, well nourished. HEENT: Pupils are round and equally reacting to light. EOMI. No scleral icterus. No conjunctival pallor. Normocephalic, atraumatic. No pharyngeal erythema. No thyromegaly. CARDIOVASCULAR: S1 and S2 present. No murmurs, rubs, or gallops. PULMONARY: Chest is clear to auscultation, no wheezing or crackles. ABDOMEN: Soft, nontender, nondistended, normoactive bowel sounds. No palpable organomegaly. MUSCULOSKELETAL: No joint swelling or deformity. EXTREMITIES: No cyanosis, clubbing, or pedal edema. Both legs are wrapped NEUROLOGICAL: Gross neurological examination did not reveal any focal deficits. SKIN: No rashes. - Labs CBC & Chem 7: 07/29/19 13:30 07/29/19 13:30 Assessment and Plan Plan: -Hypertension: Patient blood pressure is doing well without SCAR inhibitor will continue to hold SCAR inhibitor. -Bilateral patellar fracture patient may have osteoporosis and had a fracture further management as per primary service as recommended to avoid the opiates for pain and use a nonsteroidal anti-inflammatories for pain. CAT scans did show severe osteoporosis but there is no evidence of lytic lesions I reviewed the CAT scans of lower extremities -Age-related macular degeneration -Age-related related osteoporosis -DVT prophylaxis as per primary service
[2019-08-01] MEDS: LATANOPROST 0.005% OPHTH DROPS 2.5 ML BTL BOTH EYES SCH (20:15)
[2019-08-01] MEDS: HYDROcodone/APAP 5-325MG 1 EACH TAB PO PRN (20:15)
[2019-08-02] MEDS ORDERED: DEXAMETHASONE SOD PHOSPHATE 10 MG/ML 1 ML VIAL IV ONE (08:06)
[2019-08-02] MEDS: ENOXAPARIN 40 MG/0.4 ML SYRINGE SQ SCH (08:46)
[2019-08-02] MEDS: CALCIUM CARB-VIT D 500MG-200UN 1 EACH TAB PO SCH (08:46)
[2019-08-02] MEDS: PRESERVISION AREDS PO SCH ×2 (08:46→21:02)
[2019-08-02 09:14] LABS: Free Kappa Lt Chain Qnt, Serum 1.59 mg/dL (0.33-1.94); Immunoglobulin M 59.2 mg/dL (40.0-280.0)
[2019-08-02] MEDS ORDERED: LISINOPRIL 10 MG TAB PO STA (12:40)
[2019-08-02 13:00] LABS: Protein, Total 5.2 g/dL (6.2-8.2)
--- NOTE | 2019-08-02 14:35 | P.PN ---
Subjective Progress Note Date: 08/02/19 Principal diagnosis: bone lucency suspicious for myeloma In f/u pt is doing ok, she is working with PT, no other c/o. Objective - Vital Signs Vital signs: Vital Signs Temp 98.2 F 08/02/19 12:35 Pulse 79 08/02/19 12:35 Resp 16 08/02/19 12:35 BP 138/73 08/02/19 12:35 Pulse Ox 96 08/02/19 12:35 Intake & Output 08/01/19 08/02/19 08/02/19 18:59 06:59 18:59 Intake Total 1050 Balance 1050 Intake: Oral 1050 Other: Voiding Method Bedpan # Voids 3 1 # Bowel Movements 1 1 - Exam WD, petite,thin, NAD, A&Ox4, respirations even and unlabored, no swelling - Labs CBC & Chem 7: 07/29/19 13:30 07/29/19 13:30 Labs: Abnormal Lab Results - Last 24 Hours (Table) 08/01/19 Range/Units 06:51 Total Protein (PEP) 5.2 L (6.2-8.2) g/dL Assessment and Plan Plan: Abnormal bone findings on xray Labs pending work up paraproteinemia, so far results are non-diagnostic. Will follow up until all results in.
--- NOTE | 2019-08-02 20:15 | P.PN ---
Subjective Progress Note Date: 08/02/19 The patient states that she is having no pain. She was able to ambulate around the room with assistance. She denies any new issue or concerns. Objective - Vital Signs Vital signs: Vital Signs Temp 98.2 F 08/02/19 12:35 Pulse 79 08/02/19 12:35 Resp 16 08/02/19 12:35 BP 138/73 08/02/19 12:35 Pulse Ox 96 08/02/19 12:35 Intake & Output 08/01/19 08/02/19 08/02/19 18:59 06:59 18:59 Intake Total 1050 540 Balance 1050 540 Intake: Oral 1050 540 Other: Voiding Method Bedpan # Voids 3 1 2 # Bowel Movements 1 1 2 - Exam General: Lying reclined in bed. No acute distress. Musculoskeletal Left knee: Palpable bony diastasis at the mid aspect of the patella. No ulcerations, blisters or erythema. Mild, appropriate tenderness to palpation. Right knee: Large effusion is still present and not significantly changed. - Labs CBC & Chem 7: 07/29/19 13:30 07/29/19 13:30 Labs: Abnormal Lab Results - Last 24 Hours (Table) 08/01/19 Range/Units 06:51 Total Protein (PEP) 5.2 L (6.2-8.2) g/dL Assessment and Plan Assessment: 1. Bilateral patella fractures status post mechanical fall 2. Tricompartmental osteoarthritis of bilateral knees 3. Chronic lower extremity weakness and difficulty ambulating Plan: Reviewed treatment options again. She wishes to proceed with surgery tomorrow as discussed for the left patella fracture. NPO after midnight. She may continue weightbearing as tolerated in the knee immobilizers with assist and a walker. Maintain fall precautions. The immobilizers may be opened at rest for comfort and to apply ice. Continue PRN pain management. Joe Arcos D.O. [facility]
[2019-08-02] MEDS: HYDROcodone/APAP 5-325MG 1 EACH TAB PO PRN (21:03)
[2019-08-02] MEDS: LATANOPROST 0.005% OPHTH DROPS 2.5 ML BTL BOTH EYES SCH (21:03)
[2019-08-03] MEDS: LACTATED RINGERS 1,000 ML IV SCH ×2 (06:58→10:04)
[2019-08-03] MEDS: CALCIUM CARB-VIT D 500MG-200UN 1 EACH TAB PO SCH (06:59)
[2019-08-03] MEDS: PRESERVISION AREDS PO SCH ×2 (06:59→20:07)
[2019-08-03] MEDS: ENOXAPARIN 40 MG/0.4 ML SYRINGE SQ SCH (06:59)
[2019-08-03] MEDS ORDERED: LACTATED RINGERS 1,000 ML IV ONE ×3 (09:43→12:43)
[2019-08-03] MEDS ORDERED: ONDANSETRON 4 MG/2 ML VIAL IVP ONE (09:48)
[2019-08-03] MEDS ORDERED: LABETALOL 5 MG/ML VIAL MDV ONE (10:21)
[2019-08-03] MEDS ORDERED: LIDOCAINE 1% INJ 10MG/ML (20 ML MDV) ONE (10:21)
[2019-08-03] MEDS ORDERED: fentaNYL (PF) 50 MCG/ML 2 ML AMP ONE (10:21)
[2019-08-03] MEDS ORDERED: MIDAZOLAM 2 MG/2 ML VIAL ONE (10:21)
[2019-08-03] MEDS ORDERED: SUCCINYLCHOLINE CHLORIDE 100 MG/5 ML SYR IV ONE (10:21)
[2019-08-03] MEDS ORDERED: PHENYLEPHRINE-0.9% NACL SYG 1 MG/10 ML SYRINGE ONE (10:21)
[2019-08-03] MEDS ORDERED: PROPOFOL 10 MG/ML 20 ML VIAL IV ONE (10:21)
[2019-08-03] MEDS ORDERED: SODIUM CHLORIDE 0.9% 50 ML with ceFAZolin 2,000 MG IV ONE ×2 (10:40)
[2019-08-03] MEDS ORDERED: LIDOCAINE 1%-EPI 1:100,000 20 ML VIAL SQ ONE (13:33)
[2019-08-03] MEDS ORDERED: ROPIVACAINE 5 MG/ML 30 ML VIAL MISCELLANE ONE (13:33)
--- NOTE | 2019-08-03 13:38 | XR ---
Left knee, limited HISTORY: Patella fracture 4 intraoperative C-arm images document the procedure
--- NOTE | 2019-08-03 13:39 | FL ---
Fluoroscopy HISTORY: Patellar fracture fixation 48 seconds fluoroscopy time supplied to the referring clinician. 4 intraoperative C-arm images docum ent the procedure. See dictated report from orthopedic surgery.
[2019-08-03] MEDS ORDERED: ONDANSETRON 4 MG/2 ML VIAL IVP PRN (14:23)
[2019-08-03] MEDS ORDERED: NALOXONE 0.4 MG/ML 1 ML VIAL IV PRN (14:23)
--- NOTE | 2019-08-03 14:36 | P.OP ---
Date of Procedure: 08/03/19 Preoperative Diagnosis: 1. Bilateral patella fractures 2. Right knee hemarthrosis Postoperative Diagnosis: 1. Bilateral patella fractures 2. Right knee hemarthrosis Procedure(s) Performed: 1. Open reduction and internal fixation of left patella fracture 2. Arthrocentesis - right knee Implants: Arthrex 4.0 mm cannulated, partially threaded cancellous screw (1), Synthes 4.5 mm cannulated, partially threaded cancellous screw (1), FiberTape suture Anesthesia: ADALGISA, local Surgeon: Joe Arcos Estimated Blood Loss (ml): 15 (54 ml removed from right knee) Condition: stable Disposition: PACU Indications for Procedure: The patient is a very pleasant 83-year-old female who sustained bilateral patella fractures a mechanical fall. Treatment options/alternatives were discussed with the patient and her family. The right patella was minimally displaced and I recommended nonsurgical treatment. The left patella showed much more displacement and I recommended open reduction and surgical stabilization. Aspiration of the right knee under anesthesia was also recommended, due to a large hemarthrosis on that side. Risks and benefits were discussed, including (but not limited to) the risk of nonunion, malunion, prominent or painful hardware, stiffness, loss of motion, chronic pain and possible need for additional surgery. She is wrist understanding and elected to proceed with surgery as discussed. Consent forms were signed. The operative sites were confirmed and marked. Description of Procedure: The patient was brought to the operative suite and transferred to the operating table. She was positioned supine and all bony prominences were well-padded. Prophylactic antibiotics were administered. General anesthesia was administered uneventfully. The right knee was addressed first. A standard surgical pause was performed. The right knee was prepped with chlorhexidine and alcohol. Arthrocentesis was performed from the superolateral approach using an 18-gauge needle. A large effusion of dark red blood was extracted - 54 cc in total. The wound was covered with a sterile adhesive bandage. Attention was then turned to the left knee. A tourniquet was applied to the left lower extremity, which was then prepped and draped in standard, sterile fashion. A time-out was performed, confirming patient identifiers, the operative side, site and procedure to be performed: all team members expressed agreement. The limb was exsanguinated with an Esmarch and the tourniquet was inflated. A standard midline incision was marked over the patella. The skin was sharply incised. Full-thickness skin flaps were elevated. Superficial vessels were coagulated as needed with electrocautery. The patellar fracture site was identified. There was a traumatic rent in the extensor retinaculum; this was sharply extended medially and laterally. Pointed reduction clamps were applied to both fracture fragments to aid in manipulation and mobilization. The fascia at the edges of the fracture was sharply reflected. The main fracture line was transverse at the junction of the middle and distal thirds. However, the lateral side of the proximal fragment had a small bony prominence extending distally beyond the transverse portion, with a corresponding osseous defect at the distal pole. These keyed in well and there was minimal comminution. The joint was explored: Two small loose chondral fragments (less than 2 mm) were identified within the joint and were removed. There was no obvious damage to the trochlear cartilage. The joint was copiously irrigated with normal saline. Curettes were used to clean hematoma from the fracture site. The fracture was manually reduced and held with two large pointed reduction clamps. Reduction and alignment was assessed on imaging: some residual extension deformity was noted. The clamps were removed. The fracture was re-reduced and clamps were reapplied. Repeat imaging demonstrated improved alignment. A guidewire for a 4.0 mm cannulated screw was inserted and advanced retrograde from the proximal pole. Wire position was found to be too anterior. The wire was removed. A C-shaped drill guide was inserted but could not be adequately positioned on the bone, due to the patients small body habitus. The distal fragment was grasped with a reduction clamp to facilitate exposure of the distal pole. A new guidewire was inserted through a drill guide: better position was a chieved, confirmed on orthogonal imaging. A second guidewire was inserted through a parallel drill guide. The position of both wires was confirmed on imaging. A small split was made in the patellar tendon along each guidewire. The length was measured off the guidewires and screws 4-5 mm shorter were selected. The cannulated drill was inserted over the wire, confirming depth of insertion on imaging. A 4.0 mm screw was inserted over the more lateral guidewire and advanced to the edge of the inferior pole, achieving good purchase. A second screw was inserted over the medial guidewire, but failed to gain any purchase at all. The screw was removed and a longer screw was inserted in an attempt to catch the outer cortex of the proximal pole, but this also did not afford any compression. A Synthes 4.5 mm cannulated screw was then selected and inserted, which did finally show decent purchase in the proximal fragment. The guidewires were removed. A suture passer was used to shuttle a FiberTape suture through the cannulated screws in a [id number] fashion. This was tied securely with multiple knots, with the knot stack at the inferolateral corner of the patella. The clamps were removed. Final x-rays were obtained. Passive motion of the knee showed a smooth articulation with no motion or gapping at the fracture site. The wound was thoroughly irrigated with normal saline. The patellar retinaculum was repaired with #1 Vicryl suture using interrupted [id number] stitches. The splits in the quadriceps and extensor tendons were repaired with interrupted 0 Vicryl sutures. The tourniquet was released after 117 minutes at 250 mmHg and was not used for the remainder of the case; good hemostasis was obtained with manual pressure. The subcutaneous tissues were reapproximated with interrupted 2-0 Vicryl sutures. The incision was closed with arslan. Local anesthetic was injected for adjunctive postoperative analgesia. A soft, sterile dressing was applied. The knee immobilizers were reapplied to both lower extremities. All sponge, needle and instrument counts were correct at the end of the case. The patient tolerated the procedure well and was taken to the recovery room in stable condition.
[2019-08-03] MEDS: HYDROmorphone 0.5 MG/0.5 ML SYRINGE IVP PRN ×2 (14:43→15:03)
--- NOTE | 2019-08-03 14:56 | XR ---
EXAMINATION TYPE: XR knee limited LT DATE OF EXAM: 08/03/2019 COMPARISON: 07/29/2019 HISTORY: Postsurgical TECHNIQUE: 2 views FINDINGS: There are anterior skin arslan. There are 2 screws fixing the patella fracture in anatomic position. There is small joint effusion. IMPRESSION: Anatomic reduction. No complicating process seen.
--- NOTE | 2019-08-03 16:33 | P.PN ---
Subjective Patient is admitted for bilateral patellar fracture there was a concern about multiple myeloma because of which a hematology was consulted. Patient labs symptomatology and radiological imaging is not consistent with multiple bilateral patient does have osteoporosis. Patient is probably okay to go for surgery from medical perspective 08/01/2019 Patient is clinically doing well overnight events patient will undergo surgical intervention for patellar fracture and the aspiration of fluid from one of the fracture sites on Friday08/03/2019 Patient is post open reduction internal fixation of left patellar fracture an arthrocentesis of the right knee when I evaluated the patient patient is still under anesthesia coming out of anesthesia. Denied any complaints. Patient received 1 dose of lisinopril yesterday but continue to monitor the blood pressure without her lisinopril today as patient underwent operative intervention Constitutional: Denied any fatigue denied any fever. Cardio vascular: denied any chest pain, palpitations Gastrointestinal denied any nausea vomiting Pulmonary: Denied any shortness of breath cough Neurologic denied any new focal deficits All inpatient medications were reviewed and appropriate changes in these medications as dictated in the interval history and assessment and plan. Objective - Vital Signs Vital signs: Vital Signs Temp 97.0 F L 08/03/19 15:33 Pulse 89 08/03/19 15:33 Resp 15 08/03/19 15:33 BP 114/55 08/03/19 15:33 Pulse Ox 96 08/03/19 15:33 Intake & Output 08/02/19 08/03/19 08/03/19 18:59 06:59 18:59 Intake Total 118 313 0517 Output Total 15 Balance 865 288 7849 Weight 49.9 kg Intake: IV 1760 Lactated Ringers 1,000 ml 160 @ 20 mls/hr IV .Q24H [facility] Rx#:[id number] ceFAZolin 2 gm In Sodium 50 Chloride 0.9% 50 ml @ 100 mls/hr IVPB ONCE ONE Rx# :[id number] Oral 540 550 Output: Estimated Blood Loss 15 Other: Voiding Method Bedpan # Voids 1 2 # Bowel Movements 2 - Exam PHYSICAL EXAMINATION: GENERAL: The patient is alert and oriented x3, not in any acute distress. Well developed, well nourished. HEENT: Pupils are round and equally reacting to light. EOMI. No scleral icterus. No conjunctival pallor. Normocephalic, atraumatic. No pharyngeal erythema. No thyromegaly. CARDIOVASCULAR: S1 and S2 present. No murmurs, rubs, or gallops. PULMONARY: Chest is clear to auscultation, no wheezing or crackles. ABDOMEN: Soft, nontender, nondistended, normoactive bowel sounds. No palpable organomegaly. MUSCULOSKELETAL: No joint swelling or deformity. Both knees have postsurgically graft EXTREMITIES: No cyanosis, clubbing, or pedal edema. NEUROLOGICAL: Gross neurological examination did not reveal any focal deficits. SKIN: No rashes. - Labs CBC & Chem 7: 07/29/19 13:30 07/29/19 13:30 Assessment and Plan Plan: -Hypertension: Patient blood pressure is doing well continue to monitor without SCAR inhibitor patient is postoperative day 0 -Bilateral patellar fracture patient may have osteoporosis and had a fracture patient is status post open reduction and internal fixation of the left patellar fracture along with arthrocentesis of right knee -Age-related macular degeneration -Age-related related osteoporosis -DVT prophylaxis as per primary service.
[2019-08-03] MEDS: HYDROcodone/APAP 5-325MG 1 EACH TAB PO PRN (20:07)
[2019-08-03] MEDS: LATANOPROST 0.005% OPHTH DROPS 2.5 ML BTL BOTH EYES SCH (20:08)
[2019-08-04] MEDS: HYDROcodone/APAP 5-325MG 1 EACH TAB PO PRN ×3 (04:12→20:38)
[2019-08-04 07:24] LABS: Basophils % (A) 0 %; Eosinophils # (A) 0.2 k/uL (0-0.7); Eosinophils % (A) 2 %; HCT 30.7 % (34.0-46.0); HGB 10.2 gm/dL (11.4-16.0); Lymphocytes # (A) 2.3 k/uL (1.0-4.8); Lymphocytes % (A) 23 %; MCHC 33.2 g/dL (31.0-37.0); MCV 93.5 fL (80.0-100.0); Mean Platelet Volume 7.2; Monocytes # (A) 0.7 k/uL (0-1.0); Monocytes % (A) 7 %; Neutrophils # (A) 6.5 k/uL (1.3-7.7); Neutrophils % (A) 66 %; Platelet Count 294 k/uL (150-450); RBC 3.28 m/uL (3.80-5.40); RDW 13.2 % (11.5-15.5); WBC 9.8 k/uL (3.8-10.6)
[2019-08-04] MEDS: HYDROmorphone 0.5 MG/0.5 ML SYRINGE IVP PRN ×2 (08:08→14:55)
[2019-08-04] MEDS: ENOXAPARIN 40 MG/0.4 ML SYRINGE SQ SCH (08:08)
[2019-08-04] MEDS: CALCIUM CARB-VIT D 500MG-200UN 1 EACH TAB PO SCH (08:08)
[2019-08-04] MEDS: LACTATED RINGERS 1,000 ML IV SCH (08:09)
[2019-08-04] MEDS: PRESERVISION AREDS PO SCH ×2 (08:09→20:40)
--- NOTE | 2019-08-04 09:25 | P.PN ---
Subjective Progress Note Date: 08/04/19 The patient states that the pain control for her left knee is improving, with both IV and oral medication. She denies pain in the right knee and says that "it feels fine." She denies nausea, vomiting, chest pain or difficulty breathing. She has been using her incentive spirometer. Objective - Vital Signs Vital signs: Vital Signs Temp 97.8 F 08/04/19 04:40 Pulse 98 08/04/19 04:40 Resp 20 08/04/19 04:40 BP 105/62 08/04/19 04:40 Pulse Ox 98 08/04/19 04:40 Intake & Output 08/03/19 08/04/19 08/04/19 18:59 06:59 18:59 Intake Total 1760 300 Output Total 15 2 Balance 1745 298 Weight 49.9 kg Intake: IV 1760 Lactated Ringers 1,000 ml 160 @ 20 mls/hr IV .Q24H [facility] Rx#:[id number] ceFAZolin 2 gm In Sodium 50 Chloride 0.9% 50 ml @ 100 mls/hr IVPB ONCE ONE Rx# :[id number] Oral 300 Output: Stool 2 Estimated Blood Loss 15 Other: Voiding Method Bedpan # Voids 2 - Exam General: Lying reclined in bed. Interacts appropriately. Musculoskeletal: Left knee: The dressings are clean & dry without shadowing or strikethrough. Appropriate tenderness to palpation. Intact light touch sensation distally. Able to dorsiflex and plantar flex without difficulty or pain. Right knee: Minimal residual effusion. No erythema around the aspiration. Palpable fracture line across the mid aspect of the patella but no significant diastasis. - Labs CBC & Chem 7: 08/04/19 06:58 07/29/19 13:30 Labs: Abnormal Lab Results - Last 24 Hours (Table) 08/04/19 Range/Units 06:58 RBC 3.28 L (3.80-5.40) m/uL Hgb 10.2 L (11.4-16.0) gm/dL Hct 30.7 L (34.0-46.0) % Assessment and Plan Assessment: 1. Postoperative day #1 status post open reduction and internal fixation of left patella fracture and arthrocentesis of right knee 2. Bilateral patella fractures status post mechanical fall 3. Tricompartmental osteoarthritis of bilateral knees 4. Chronic lower extremity weakness and difficulty ambulating Plan: I reviewed the intraoperative findings with the patient. Continue PRN pain management - IV for breakthrough only. Up with assist only, fall precautions. Begin PT/OT - weightbearing as tolerated with a walker and standby assist. Must wear knee immobilizers when ambulating. They may be opened at rest for co mfort and to apply ice. Do not let the knees rest in a flexed position. Place padding under ankles to keep heels off the bed. DVT prophylaxis with LMWH DC planning for subacute rehab placement Anticipate discharge tomorrow.
--- NOTE | 2019-08-04 14:40 | P.PN ---
Subjective Patient is admitted for bilateral patellar fracture there was a concern about multiple myeloma because of which a hematology was consulted. Patient labs symptomatology and radiological imaging is not consistent with multiple bilateral patient does have osteoporosis. Patient is probably okay to go for surgery from medical perspective 08/01/2019 Patient is clinically doing well overnight events patient will undergo surgical intervention for patellar fracture and the aspiration of fluid from one of the fracture sites on Friday08/03/2019 Patient is post open reduction internal fixation of left patellar fracture an arthrocentesis of the right knee when I evaluated the patient patient is still under anesthesia coming out of anesthesia. Denied any complaints. Patient received 1 dose of lisinopril yesterday but continue to monitor the blood pressure without her lisinopril today as patient underwent operative intervention 08/04/2019 Patient is clinically doing well now negative and patient did pass gas did not move her bowel yet no overnight events. Patient did not receive and able his medication clinically doing okay blood pressure is fairly stable not elevated. Constitutional: Denied any fatigue denied any fever. Cardio vascular: denied any chest pain, palpitations Gastrointestinal denied any nausea vomiting Pulmonary: Denied any shortness of breath cough Neurologic denied any new focal deficits All inpatient medications were reviewed and appropriate changes in these medications as dictated in the interval history and assessment and plan. Objective - Vital Signs Vital signs: Vital Signs Temp 98.0 F 08/04/19 12:31 Pulse 89 08/04/19 12:31 Resp 16 08/04/19 12:31 BP 148/69 08/04/19 12:31 Pulse Ox 96 08/04/19 12:31 Intake & Output 08/03/19 08/04/19 08/04/19 18:59 06:59 18:59 Intake Total 1760 300 540 Output Total 15 2 Balance 1745 298 540 Weight 49.9 kg Intake: IV 1760 Lactated Ringers 1,000 ml 160 @ 20 mls/hr IV .Q24H ELSIE Rx#:[id number] ceFAZolin 2 gm In Sodium 50 Chloride 0.9% 50 ml @ 100 mls/hr IVPB ONCE ONE Rx# :[id number] Oral 300 540 Output: Stool 2 Estimated Blood Loss 15 Other: Voiding Method Bedpan # Voids 2 2 - Exam PHYSICAL EXAMINATION: GENERAL: The patient is alert and oriented x3, not in any acute distress. Well developed, well nourished. HEENT: Pupils are round and equally reacting to light. EOMI. No scleral icterus. No conjunctival pallor. Normocephalic, atraumatic. No pharyngeal erythema. No thyromegaly. CARDIOVASCULAR: S1 and S2 present. No murmurs, rubs, or gallops. PULMONARY: Chest is clear to auscultation, no wheezing or crackles. ABDOMEN: Soft, nontender, nondistended, normoactive bowel sounds. No palpable organomegaly. MUSCULOSKELETAL: No joint swelling or deformity. Both knees have postsurgically graft EXTREMITIES: No cyanosis, clubbing, or pedal edema. NEUROLOGICAL: Gross neurological examination did not reveal any focal deficits. SKIN: No rashes. - Labs CBC & Chem 7: 08/04/19 06:58 07/29/19 13:30 Labs: Abnormal Lab Results - Last 24 Hours (Table) 08/04/19 Range/Units 06:58 RBC 3.28 L (3.80-5.40) m/uL Hgb 10.2 L (11.4-16.0) gm/dL Hct 30.7 L (34.0-46.0) % Assessment and Plan Plan: -Hypertension: Patient blood pressure is doing well continue to monitor without SCAR inhibitor patient is postoperative day 1 but did pass ( -Bilateral patellar fracture patient may have osteoporosis and had a fracture patient is status post open reduction and internal fixation of the left patellar fracture along with arthrocentesis of right knee -Age-related macular degeneration -Age-related related osteoporosis -DVT prophylaxis as per primary service.
[2019-08-04] MEDS: LATANOPROST 0.005% OPHTH DROPS 2.5 ML BTL BOTH EYES SCH (20:40)
[2019-08-05] MEDS: HYDROcodone/APAP 5-325MG 1 EACH TAB PO PRN ×3 (01:38→15:11)
[2019-08-05] MEDS ORDERED: LISINOPRIL 10 MG TAB PO SCH (09:00)
[2019-08-05] MEDS: PRESERVISION AREDS PO SCH (09:12)
[2019-08-05] MEDS: ENOXAPARIN 40 MG/0.4 ML SYRINGE SQ SCH (09:12)
[2019-08-05] MEDS: CALCIUM CARB-VIT D 500MG-200UN 1 EACH TAB PO SCH (09:12)
[2019-08-05 13:42] VITALS: BP 161/68; PULSE 96; RESP 16; TEMP 98.3
--- NOTE | 2019-08-05 15:38 | P.DS ---
Providers Date of admission: 07/30/19 13:00 Expected date of discharge: 08/05/19 Attending physician: Joe Arcos, Consults: 07/29/19 17:13 Consult Physician Routine Consulting Provider: Kath Mathew Consult Reason/Comments: medical management Do you want consulting provider notified?: Yes 07/30/19 18:07 Consult Physician Routine Consulting Provider: Marek Menjivar Consult Reason/Comments: Multiple lytic lesions in dorinda distal femurs. Concern for multiple myeloma. Do you want consulting provider notified?: Yes Primary care physician: Glenny Cancino - Discharge Diagnosis(es) (1) Right patella fracture Current Visit: Yes Status: Acute (2) Left patella fracture Current Visit: Yes Status: Acute (3) Fall Current Visit: Yes Status: Acute Hospital Course: This is a pleasant 83-year-old female who presented to the emergency department last week after sustaining a fall. She was found to have bilateral patellar fractures and was admitted for further evaluation by orthopedics and possible rehab placement. CTs of the bilateral knees were performed and it was determined that the left patella needed surgical intervention. The right patella fracture is in a good position and was treated closed with knee immobilizer. After discussion and consideration, patient elected to proceed with an ORIF of the left patella. The patient was seen preoperatively and medically cleared for surgery by internal medicine. The patient was admitted to [facility] and underwent an ORIF of the left patella and arthrocentsis of the right knee on 08/03/[address] Arcos. The procedure was performed without complications or sequelae. The patient has done well postoperatively. The patient was seen and evaluated at bedside today and denies any new complaints. Pain is reasonably controlled. Immobilizers bilaterally. Dressing to the left knee is clean dry and intact. Calves are soft and nontender. The patient has full foot and ankle motion bilaterally without difficulty. Patient's bilateral lower extremities are neurovascular intact. She was evaluated by hematology/oncology for possible lytic changes to her bilateral distal femurs. There is a low suspicion for malignancy and lab work was ordered. Patient is orthopedically stable for discharge to skilled rehab today. See medication reconciliation for accurate list of discharge medications. Pertinent Studies: Laboratory Tests 08/04/19 08/04/19 08/04/19 06:58 06:58 06:58 WBC 9.8 RBC 3.28 L Hgb 10.2 L Hct 30.7 L Retic Count 3.0 H Vitamin D 25-Hydroxy 15.3 L Patient Condition at Discharge: Stable Plan - Discharge Summary New Discharge Prescriptions: New Aspirin 325 mg PO BID #60 tab Docusate [Colace] 100 mg PO BID #60 capsule Enoxaparin [Lovenox] 40 mg SQ DAILY #14 syringe HYDROcodone/APAP 5-325MG [[place] 5] 1 - 2 each PO Q4-6H PRN #40 tab PRN Reason: Pain No Action Alpha Lipoic Acid 200 mg PO DAILY levOCARNitine [l-Carnitine] 500 mg PO BID Paul-3 Fatty Acids/Fish Oil [Fish Oil 1,000 mg Softgel] 1 cap PO DAILY Calcium Carbonate/Vitamin D3 [Calcium 600-Vit D3 400 Tablet] 2 tab PO DAILY Vit C/E/Zn/Coppr/Lutein/Zeaxan [Preservision Areds 2 Softgel] 1 cap PO BID Lisinopril [Zestril] 10 mg PO DAILY Latanoprost [Xalatan 0.005%] 1 drop BOTH EYES HS Aspirin EC [Ecotrin Low Dose] 81 mg PO DAILY Alendronate Sodium [Fosamax] 70 mg PO MO Discharge Medication List Alendronate Sodium [Fosamax] 70 mg PO MO 07/29/19 [History] Alpha Lipoic Acid 200 mg PO DAILY 07/29/19 [History] Aspirin EC [Ecotrin Low Dose] 81 mg PO DAILY 07/29/19 [History] Calcium Carbonate/Vitamin D3 [Calcium 600-Vit D3 400 Tablet] 2 tab PO DAILY 07/29/19 [History] Latanoprost [Xalatan 0.005%] 1 drop BOTH EYES HS 07/29/19 [History] Lisinopril [Zestril] 10 mg PO DAILY 07/29/19 [History] Paul-3 Fatty Acids/Fish Oil [Fish Oil 1,000 mg Softgel] 1 cap PO DAILY 07/29/19 [History] Vit C/E/Zn/Coppr/Lutein/Zeaxan [Preservision Areds 2 Softgel] 1 cap PO BID 07/29/19 [History] levOCARNitine [l-Carnitine] 500 mg PO BID 07/29/19 [History] Aspirin 325 mg PO BID #60 tab 08/05/19 [Rx] Docusate [Colace] 100 mg PO BID #60 capsule 08/05/19 [Rx] Enoxaparin [Lovenox] 40 mg SQ DAILY #14 syringe 08/05/19 [Rx] HYDROcodone/APAP 5-325MG [Well[place] 5] 1 - 2 each PO Q4-6H PRN #40 tab 08/05/19 [Rx] Follow up Appointment(s)/Referral(s): Glenny Cancino DO [Primary Care Provider] - 1-2 days Joe Arcos DO [Medical Doctor] - 2 Weeks Activity/Diet/Wound Care/Special Instructions: Keep Optifoam dressing in place for 5 days. May shower over dressing. Remove dressing and apply 4x4s and paper tape. Hung to be removed in the office. Up with assist only Weightbearing as tolerated with a walker and standby assist. Must wear knee immobilizers while ambulating. They may be opened at press for comfort and to apply ice. Do not want the knees rested in a flexed position. Placed padding under the ankle to keep heels off the bed. Loveonx 40 mg Daily for 14 days then start Aspirin 325 mg BID. Follow up with Dr. Arcos in 2 weeks. Call [facility] with any questions or concerns. [phone]. Discharge Disposition: TRANSFER TO SNF/ECF
--- NOTE | 2019-08-05 15:43 | P.PN ---
Subjective Progress Note Date: 08/05/19 Principal diagnosis: bone lucency suspicious for myeloma In follow-up today patient is status post orthopedic surgical procedures, she has actually ambulated! She states good pain control at this time. No fevers Objective - Vital Signs Vital signs: Vital Signs Temp 98.3 F 08/05/19 12:36 Pulse 96 08/05/19 12:36 Resp 16 08/05/19 12:36 BP 161/68 08/05/19 12:36 Pulse Ox 97 08/05/19 12:36 Intake & Output 08/04/19 08/05/19 08/05/19 18:59 06:59 18:59 Intake Total 540 300 Output Total 0 Balance 540 300 Intake: Oral 540 300 Output: Stool 0 Other: Voiding Method Bedpan # Voids 1 0 - Exam WD, petite,thin, NAD, A&Ox4, respirations even and unlabored, Bilateral lower ex tremities are wrapped from the mid thigh distal, toes are warm to the touch, patient has good sensation in both feet, no swelling in the feet - Labs CBC & Chem 7: 08/04/19 06:58 07/29/19 13:30 Labs: Abnormal Lab Results - Last 24 Hours (Table) 08/04/19 08/04/19 Range/Units 06:58 06:58 Retic Count 3.0 H (0.5-2.0) % Vitamin D 25-Hydroxy 15.3 L (30.0-100.0) ng/mL Assessment and Plan Plan: Abnormal bone findings on xray Patient's hemoglobin is noted to have decreased postoperatively, suspect some dilution from fluids during surgery. Her CBC is otherwise within normal limits at this time. There are still some labs pending on work up for paraproteinemia, results thus far are non-diagnostic. Will follow up until all results in. CBC monitoring while in rehab. Will contact pt is she requires Hematological f/u
--- NOTE | 2019-08-05 15:48 | P.PN ---
Subjective Progress Note Date: 08/05/19 Principal diagnosis: Patient is admitted for bilateral patellar fracture there was a concern about multiple myeloma because of which a hematology was consulted. Patient labs symptomatology and radiological imaging is not consistent with multiple bilateral patient does have osteoporosis. Patient is probably okay to go for surgery from medical perspective 08/01/2019 Patient is clinically doing well overnight events patient will undergo surgical intervention for patellar fracture and the aspiration of fluid from one of the fracture sites on Friday08/03/2019 Patient is post open reduction internal fixation of left patellar fracture an arthrocentesis of the right knee when I evaluated the patient patient is still under anesthesia coming out of anesthesia. Denied any complaints. Patient received 1 dose of lisinopril yesterday but continue to monitor the blood pressu re without her lisinopril today as patient underwent operative intervention 08/04/2019 Patient is clinically doing well now negative and patient did pass gas did not move her bowel yet no overnight events. Patient did not receive and able his medication clinically doing okay blood pressure is fairly stable not elevated. Constitutional: Denied any fatigue denied any fever. Cardio vascular: denied any chest pain, palpitations Gastrointestinal denied any nausea vomiting Pulmonary: Denied any shortness of breath cough Neurologic denied any new focal deficits All inpatient medications were reviewed and appropriate changes in these medications as dictated in the interval history and assessment and plan. 08/05/2019 Patient is sitting up in the chair and appears to be in no acute distress. F aftab is at the bedside. No acute overnight issues. Lisinopril has been restarted and will continue to monitor blood pressure. Patient is awaiting acceptance to a rehab facility for continued strength and mobility. Family has opted for [facility] and is visiting their today. Patient is agreeable to this facility. Will continue to follow along closely. Objective - Vital Signs Vital signs: Vital Signs Temp 98.3 F 08/05/19 12:36 Pulse 96 08/05/19 12:36 Resp 16 08/05/19 12:36 BP 161/68 08/05/19 12:36 Pulse Ox 97 08/05/19 12:36 Intake & Output 08/04/19 08/05/19 08/05/19 18:59 06:59 18:59 Intake Total 540 300 Output Total 0 Balance 540 300 Intake: Oral 540 300 Output: Stool 0 Other: Voiding Method Bedpan # Voids 1 0 - Exam GENERAL: The patient is alert and oriented x3, not in any acute distress. Well developed, well nourished. HEENT: Pupils are round and equally reacting to light. EOMI. No scleral icterus. No conjunctival pallor. Normocephalic, atraumatic. No pharyngeal erythema. No thyromegaly. CARDIOVASCULAR: S1 and S2 present. No murmurs, rubs, or gallops. PULMONARY: Chest is clear to auscultation, no wheezing or crackles. ABDOMEN: Soft, nontender, nondistended, normoactive bowel sounds. No palpable organomegaly. MUSCULOSKELETAL: No joint swelling or deformity. Both knees have postsurgically graft EXTREMITIES: No cyanosis, clubbing, or pedal edema. NEUROLOGICAL: Gross neurological examination did not reveal any focal deficits. SKIN: No rashes. - Labs CBC & Chem 7: 08/04/19 06:58 07/29/19 13:30 Labs: Abnormal Lab Results - Last 24 Hours (Table) 08/04/19 08/04/19 Range/Units 06:58 06:58 Retic Count 3.0 H (0.5-2.0) % Vitamin D 25-Hydroxy 15.3 L (30.0-100.0) ng/mL Assessment and Plan Assessment: -Hypertension: Patient blood pressure is doing well continue to monitor without SCAR inhibitor patient is postoperative day 1. Lisinopril was resumed today. -Bilateral patellar fracture patient may have osteoporosis and had a fracture patient is status post open reduction and internal fixation of the left patellar fracture along with arthrocentesis of right knee -Age-related macular degeneration -Age-related related osteoporosis -DVT prophylaxis as per primary service. Plan: Lisinopril has been resumed and will continue in the outpatient setting. [facility]OT [facility]. Plan is for discharge today if authorization is obtained. Will continue to follow with orthopedic surgery. Further recommendations to follow.
[2019-08-05 16:05] LABS: % Iron Saturation 11.22 (12.00-45.00)
[2019-08-05 16:14] LABS: Ferritin 97.1 ng/mL (10.0-291.0)
[2019-08-09 10:36] LABS: Albumin 2.94 g/dL (3.80-4.90); Gamma Globulin 0.74 g/dL (0.70-1.50)
== END 2019-08-05 19:55 | DRG 516 ==
LOC: EC 11:19 → 4SSUR 13:11 → 6NMEDSUR 18:13 → OBSVTOIN 07-30 13:00
PROVIDERS: ADMIT Orthopaedic Surgery; ATTEND Orthopaedic Surgery
PROC: 0S9C3ZZ Drainage of Right Knee Joint, Percutaneous Approach (ICD-10-PCS; principal; 2019-08-03 10:30)
PROC: 0QSF04Z Reposition Left Patella with Internal Fixation Device, Open Approach (ICD-10-PCS; principal; 2019-08-03 10:30)
DX: S82.012A Displaced osteochondral fracture of left patella, initial encounter for closed fracture (principal); S82.011A Displaced osteochondral fracture of right patella, initial encounter for closed fracture; W18.30XA Fall on same level, unspecified, initial encounter; S76.119A Strain of unspecified quadriceps muscle, fascia and tendon, initial encounter; M81.0 Age-related osteoporosis without current pathological fracture; M17.0 Bilateral primary osteoarthritis of knee; I10 Essential (primary) hypertension; H35.30 Unspecified macular degeneration; Y92.009 Unspecified place in unspecified non-institutional (private) residence as the place of occurrence of the external cause; Z79.82 Long term (current) use of aspirin; Z79.899 Other long term (current) drug therapy; Z79.83 Long term (current) use of bisphosphonates; Z90.710 Acquired absence of both cervix and uterus; Z80.3 Family history of malignant neoplasm of breast
CPT/HCPCS: 80053; 82306; 82607; 82728; 82747; 82784; 83540; 83550; 83883; 84165; 85025; 85045; 85610; 85730; 86334; 86335; 96360; 96361; 99285

== ENCOUNTER → 2020-04-13 | Outpatient (CLI) | payer MEDICARE | END | disposition home or self-care (01) | LOC: LABWHC1 11:48 | PROVIDERS: ATTEND Orthopaedic Surgery | DX: E55.9 Vitamin D deficiency, unspecified (principal) | CPT/HCPCS: 36415; 82306 ==

== ENCOUNTER → 2021-04-26 | Outpatient (CLI) | payer MEDICARE ==
--- NOTE | 2021-04-26 18:47 | BD ---
EXAMINATION TYPE: Axial Bone Density DATE OF EXAM: 04/26/2021 COMPARISON: 06.25.2018 CLINICAL HISTORY: 85 YR OLD FEMALE......ICD-10 CODE: M81.8 OSTEOPOROSIS ....PT IN WHEELCHAIR/UNSTE JOSE Height: 58.8 Weight: 105 FRAX RISK QUESTIONS: Family History (Parent hip fracture): YES History of Fracture in Adulthood: YES RISK FACTORS HISTORY OF: BOTH PATELLAR FXS WITH SURGICAL REPAIRS, Family History of Osteoporosis: YES, WITH HIP FXS Postmenopausal woman: YESM AT 53, TOTAL HYST AT AGE 56 Take estrogen and/or progesterone medications: YES, FOR ABOUT 10 YRS Lost more than 2 inches in height since high school: YES Frequent falls: YES Poor Health: ELDERLY Hyperparathyroidism: NO Adrenal Insufficiency: NO MEDICATIONS: Osteoporosis Medications: YES, FOSAMAX AND BONIVA TOTAL OF 9 YRS Additional Medications: BP MEDS, HX OF CHEMO INSERTED INTO BLADDER, CHOLESTEROL MEDS IN THE PAST, NON E NOW, VIT D AND CALCIUM Additional History: BLADDER CANCER, HYPERTENSION, CHOLESTEROL IN THE PAST, EXAM MEASUREMENTS: Bone mineral densitometry was performed using the K[employer]u System. Bone mineral density as measured about the Lumbar spine is: ----- L1-L4(G/cm2): 1.004 T Score Values are as follows: ----- L1: -2.1 ----- L2: -2.7 ----- L3: -1.4 ----- L4: 0.0 ----- L1-L4: -1.5 Bone mineral density has: Increased 4.2% since study of: 06.25.2018 Bone mineral density about the R hip (g/cm2): 0.635 Bone mineral density about the L hip (g/cm2): 0.667 T Score values are as follows: -----R Neck: -2.2 -----L Neck: -1.2 -----R Total: -3.0 -----L Total: -2.7 Bone mineral density has: Increased 0.2% since study of: 06.25.2018 FRAX%s: THERE IS A 35.9% CHANCE FOR A MAJOR OSTEOPOROTIC FX AND A 24.5% FOR HIP......PROBABILITY FOR FX IN 10 YRS TIME IMPRESSION: Osteoporosis (T Score less than -2.5). There is increased fracture risk and therapy is usually indicated based on age. Re-Screen 1-2 years. NOTE: T-SCORE=SD OF THE YOUNG ADULT MEAN.
--- NOTE | 2021-04-27 11:41 | MM ---
Reason for exam: screening (asymptomatic). Last mammogram was performed 1 year and 9 months ago. History: Patient is postmenopausal and has history of other cancer at age 56. Family history of breast cancer in mother at age 76 and breast cancer in aunt. Physical Findings: A clinical breast exam by your physician is recommended on an annual basis and results should be correlated with mammographic findings. MG 3D Screening Mammo W/Cad Bilateral CC and MLO view(s) were taken. Prior study comparison: July 21, 2019, bilateral MG 3d screening mammo w/cad. June 25, 2018, bilateral MG 3d screening mammo w/cad. The breast tissue is heterogeneously dense. This may lower the sensitivity of mammography. Benign appearing bilateral calcifications. No significant changes when compared with prior studies. ASSESSMENT: Benign, BI-RAD 2 RECOMMENDATION: Routine screening mammogram of both breasts in 1 year.
== END | disposition home or self-care (01) ==
LOC: RADBDWWP 09:17
PROVIDERS: ATTEND Family Medicine
DX: Z12.31 Encounter for screening mammogram for malignant neoplasm of breast (principal); M18.0 Bilateral primary osteoarthritis of first carpometacarpal joints; Z80.3 Family history of malignant neoplasm of breast
CPT/HCPCS: 77063; 77067; 77080

== ENCOUNTER → 2022-05-01 | Outpatient (CLI) | payer MEDICARE ==
--- NOTE | 2022-05-02 20:19 | MM ---
Reason for Exam: Screening (asymptomatic). Last screening mammogram was performed 12 month(s) ago. Patient History: Menarche at age 11. First Full-Term at age 26. Left ovary removed at age 70. Right ovary removed at age 70. Hysterectomy at age 70. Postmenopausal. Other cancer, age 56. Maternal aunt had breast cancer. Mother had breast cancer, age 76. Prior Study Comparison: 06/25/2018 Bilateral Screening Mammogram, [facility]. 07/21/2019 Bilateral Screening Mammogram, [facility]. 04/26/2021 Bilateral Screening Mammogram, [facility]. Tissue Density: The breast tissue is heterogeneously dense. This may lower the sensitivity of mammography. Findings: Analyzed By CAD. Benign vascular calcifications on both sides as well as a benign oil cyst calcifications on the left. There is no suspicious group of microcalcifications or new suspicious mass in either breast. Overall Assessment: Benign, BI-RAD 2 Management: Screening Mammogram of both breasts in 1 year. 1. Patient should continue monthly self breast exams. 2. A clinical breast exam by your physician is recommended on an annual basis. 3. This exam should not preclude additional follow-up of suspicious palpable abnormalities. Electronically signed and approved by: Spencer Sim M.D. Radiologist
== END | disposition home or self-care (01) ==
LOC: RADMAMWWP 08:58
PROVIDERS: ATTEND Family Medicine
DX: Z12.31 Encounter for screening mammogram for malignant neoplasm of breast (principal); Z80.3 Family history of malignant neoplasm of breast; Z85.89 Personal history of malignant neoplasm of other organs and systems; Z78.0 Asymptomatic menopausal state
CPT/HCPCS: 77063; 77067

== ENCOUNTER 2024-01-16 14:13 | Inpatient (IN) | payer MEDICARE ==
[2024-01-16 14:51] LABS: Glucose,Whole Blood 87 mg/dL (70-110)
[2024-01-16 15:06] LABS: Basophils % (A) 0 %; Eosinophils # (A) 0.2 k/uL (0-0.7); Eosinophils % (A) 2 %; HCT 41.6 % (34.0-46.0); HGB 13.5 gm/dL (11.4-16.0); Lymphocytes # (A) 1.5 k/uL (1.0-4.8); Lymphocytes % (A) 21 %; MCH 29.6 pg (25.0-35.0); MCHC 32.5 g/dL (31.0-37.0); MCV 91.1 fL (80.0-100.0); Mean Platelet Volume 7.8; Monocytes # (A) 0.5 k/uL (0-1.0); Monocytes % (A) 7 %; Neutrophils # (A) 4.7 k/uL (1.3-7.7); Neutrophils % (A) 67 %; Platelet Count 268 k/uL (150-450); RBC 4.57 m/uL (3.80-5.40); RDW 13.1 % (11.5-15.5); WBC 6.9 k/uL (3.8-10.6)
[2024-01-16] MEDS: SODIUM CHLORIDE 0.9% 500 ML 500 ML IV ONE (15:07)
[2024-01-16 15:24] LABS: ALT 24 U/L (4-34); African American GFR (CKD) >90 (>60 ml/min/1.73 sqM); Anion Gap 6 mmol/L; Blood Urea Nitrogen 9 mg/dL (7-17); Calcium 8.7 mg/dL (8.4-10.2); Carbon Dioxide 22 mmol/L (22-30); Chloride 98 mmol/L (98-107); Glucose 82 mg/dL (74-99); Non-African American GFR(CKD) >90 (>60 ml/min/1.73 sqM); Sodium 126 mmol/L (137-145)
[2024-01-16 15:26] LABS: AST 41 U/L (14-36); Albumin 4.2 g/dL (3.5-5.0); Alkaline Phosphatase 49 U/L (38-126); Potassium 4.4 mmol/L (3.5-5.1); Total Bilirubin 0.8 mg/dL (0.2-1.3); Total Protein 6.9 g/dL (6.3-8.2)
[2024-01-16 15:36] LABS: Appearance,Urine Clear (Clear); Bilirubin,Urine Negative (Negative); Blood,Urine Negative (Negative); Color,Urine Colorless; Glucose,Urine (UA) Negative (Negative); Ketones,Urine 1+ (Negative); Leukocyte Esterase,Urine Negative (Negative); Nitrite,Urine Negative (Negative); PH, Urine 7.5 (5.0-8.0); Protein,Urine Negative (Negative); Specific Gravity,Urine 1.007 (1.001-1.035); Urobilinogen,Urine <2.0 mg/dL (<2.0)
--- NOTE | 2024-01-16 15:52 | ED ---
Altered Mental Status HPI - General Chief Complaint: Altered Mental Status Stated Complaint: Weakness,AMS Time Seen by Provider: 01/16/24 14:30 Source: patient, EMS, RN notes reviewed Mode of arrival: EMS Limitations: altered mental status - History of Present Illness Initial Comments: 88-year-old female presents emergency with chief complaint of lightheadedness. Patient was brought in via EMS after mailman called family concerned today she was in her usual self. Patient states that she had mild headache and felt lightheaded since this morning states it may have been present yesterday. She denies any physical complaints denies any abdominal pain. Denies chest pain shortness of breath fever chills leg pain leg swelling no focal weakness. - Related Data Home Medications Medication Instructions Recorded Confirmed Alpha Lipoic Acid 200 mg PO DAILY 07/29/19 01/16/24 Calcium Carbonate/Vitamin D3 2 tab PO DAILY 07/29/19 01/16/24 [Calcium 600-Vit D3 10 mcg (400 Iu)] Latanoprost [Xalatan 0.005%] 1 drop BOTH EYES HS 07/29/19 01/16/24 [place]-3 Fatty Acids/Fish Oil [Fish 1 cap PO DAILY 07/29/19 01/16/24 Oil 1,000 mg Softgel] Vit C/E/Zn/Coppr/Lutein/Zeaxan 1 cap PO BID 07/29/19 01/16/24 [Preservision Areds 2 Softgel] levOCARNitine [l-Carnitine] 500 mg PO DAILY 07/29/19 01/16/24 Cholecalciferol (Vitamin D3) 75 mcg PO DAILY 01/16/24 01/16/24 [Vitamin D3 (3000 Iu)] lisinopriL [Zestril] 5 mg PO DAILY 01/16/24 01/16/24 Allergies Allergy/AdvReac Type Severity Reaction Status Date / Time No Known Allergies Allergy Verified 01/16/24 15:57 Review of Systems ROS Statement: Those systems with pertinent positive or pertinent negative responses have been documented in the HPI. ROS Other: All systems not noted in ROS Statement are negative. Past Medical History Past Medical History: Hypertension Additional Past Medical History / Comment(s): macular degeneration. "Muscle atrophy with unknown diagnosis because patient would not complte muscle biopsy per neuros reccomendations. " History of Any Multi-Drug Resistant Organisms: None Reported Past Surgical History: Hysterectomy Past Anesthesia/Blood Transfusion Reactions: No Reported Reaction Past Psychological History: No Psychological Hx Reported Past Alcohol Use History: None Reported Past Drug Use History: None Reported General Exam Limitations: altered mental status General appearance: alert, in no apparent distress Head exam: Present: atraumatic, normocephalic, normal inspection Eye exam: Present: normal appearance, PERRL, EOMI. Absent: scleral icterus, conjunctival injection, periorbital swelling ENT exam: Present: normal exam, normal oropharynx, mucous membranes moist Neck exam: Present: normal inspection, full ROM. Absent: tenderness, meningismus, lymphadenopathy Respiratory exam: Present: normal lung sounds bilaterally. Absent: respiratory distress, wheezes, rales, rhonchi, stridor Cardiovascular Exam: Present: regular rate, normal rhythm, normal heart sounds. Absent: systolic murmur, diastolic murmur, rubs, gallop, clicks GI/Abdominal exam: Present: soft, normal bowel sounds. Absent: distended, tenderness, guarding, rebound, rigid Back exam: Present: full ROM. Absent: tenderness Neurological exam: Present: alert, oriented X3, CN II-XII intact, reflexes normal. Absent: motor sensory deficit Skin exam: Present: warm, dry, intact, normal color. Absent: rash Course Vital Signs 01/16/24 01/16/24 14:20 15:48 Temperature 98.3 F Pulse Rate 77 76 Respiratory 17 18 Rate Blood Pressure 156/75 164/76 O2 Sat by Pulse 99 97 Oximetry Medical Decision Making - Medical Decision Making Was pt. sent in by a medical professional or institution (, PA, REGISTERED NURSE FETAL, urgent care, hospital, or group home...) When possible be specific @ -No Did you speak to anyone other than the patient for history (EMS, parent, family, police, friend...)? What history was obtained from this source @ -No Did you review nursing and triage notes (agree or disagree)? Why? @ -I reviewed and agree with nursing and triage notes Were old charts reviewed (outside hosp., previous admission, EMS record, old EKG, old radiological studies, urgent care reports/EKG's, group home records)? Report findings @ -No old charts were reviewed Differential Diagnosis (chest pain, altered mental status, abdominal pain women, abdominal pain men, vaginal bleeding, weakness, fever, dyspnea, syncope, headache, dizziness, GI bleed, back pain, seizure, CVA, palpatations, mental health, musculoskeletal)? @ -Not applicable EKG interpreted by me (3pts min.). @ -As above X-rays interpreted by me (1pt min.). @ -None done CT interpreted by me (1pt min.). @ -CT brain shows no acute intracranial hemorrhage or mass effect U/S interpreted by me (1pt. min.). @ -None done What testing was considered but not performed or refused? (CT, X-rays, U/S, labs)? Why? @ -None What meds were considered but not given or refused? Why? @ -None Did you discuss the management of the patient with other professionals (professionals i.e. , PA, REGISTERED NURSE FETAL, lab, RT, psych nurse, elementary school social worker, cnc milling machine operator, teacher, bomb squad officer, employment case manager)? Give summary @ -[facility] for admission secondary to increased weakness, hyponatremia Was smoking cessation discussed for >3mins.? @ -No Was critical care preformed (if so, how long)? @ -No Were there social determinants of health that impacted care today? How? (Ho melessness, low income, unemployed, alcoholism, drug addiction, transportation, low edu. Level, literacy, decrease access to med. care, usp, rehab)? @ -No Was there de-escalation of care discussed even if they declined (Discuss DNR or withdrawal of care, Hospice)? DNR status @ -No What co-morbidities impacted this encounter? (DM, HTN, Smoking, COPD, CAD, Cancer, CVA, ARF, Chemo, Hep., AIDS, mental health diagnosis, sleep apnea, morbid obesity)? @ -None Was patient admitted / discharged? Hospital course, mention meds given and route, prescriptions, significant lab abnormalities, going to OR and other pertinent info. @ -Admitted increasing weakness, hyponatremia. Patient was started on maint enance fluids family states that she is more weak than usual there is no focal weakness. Patient did have CT, labs. Undiagnosed new problem with uncertain prognosis? @ -No Drug Therapy requiring intensive monitoring for toxicity (Heparin, Nitro, Insulin, Cardizem)? @ -No Were any procedures done? @ -No Diagnosis/symptom? @ -weakness, Hyponatremia Acute, or Chronic, or Acute on Chronic? @ -acute Uncomplicated (without systemic symptoms) or Complicated (systemic symptoms)? @ -Uncomplicated Side effects of treatment? @ -No Exacerbation, Progression, or Severe Exacerbation? @ -No Poses a threat to life or bodily function? How? (Chest pain, [place], [place], pneumonia, PE, COPD, DKA, ARF, appy, cholecystitis, CVA, Diverticulitis, Homicidal, Suicidal, threat to staff... and all critical care pts) @ -No - Lab Data Result diagrams: 01/16/24 14:55 01/16/24 14:55 Lab Results 01/16/24 01/16/24 01/16/24 Range/Units 14:49 14:55 14:55 WBC 6.9 (3.8-10.6) k/uL RBC 4.57 (3.80-5.40) m/uL Hgb 13.5 (11.4-16.0) gm/dL Hct 41.6 (34.0-46.0) % MCV 91.1 (80.0-100.0) fL MCH 29.6 (25.0-35.0) pg MCHC 32.5 (31.0-37.0) g/dL RDW 13.1 (11.5-15.5) % Plt Count 268 (150-450) k/uL MPV 7.8 Neutrophils % 67 % Lymphocytes % 21 % Monocytes % 7 % Eosinophils % 2 % Basophils % 0 % Neutrophils # 4.7 (1.3-7.7) k/uL Lymphocytes # 1.5 (1.0-4.8) k/uL Monocytes # 0.5 (0-1.0) k/uL Eosinophils # 0.2 (0-0.7) k/uL Basophils # 0.0 (0-0.2) k/uL PT (10.0-12.5) sec INR (<1.2) APTT (22.0-30.0) sec Sodium (137-145) mmol/L Potassium (3.5-5.1) mmol/L Chloride (98-107) mmol/L Carbon Dioxide (22-30) mmol/L Anion Gap mmol/L BUN (7-17) mg/dL Creatinine (0.52-1.04) mg/dL Est GFR (CKD-EPI)AfAm (>60 ml/min/1.73 sqM) Est GFR (CKD-EPI)NonAf (>60 ml/min/1.73 sqM) Glucose (74-99) mg/dL POC Glucose (mg/dL) 87 (70-110) mg/dL POC Glu Parking Lot Attendant And Cashier ID Grace Hernandez Calcium (8.4-10.2) mg/dL Total Bilirubin (0.2-1.3) mg/dL AST (14-36) U/L ALT (4-34) U/L Alkaline Phosphatase (38-126) U/L Troponin I (0.000-0.034) ng/mL Total Protein (6.3-8.2) g/dL Albumin (3.5-5.0) g/dL Urine Color Colorless Urine Appearance Clear (Clear) Urine pH 7.5 (5.0-8.0) Ur Specific [place] 1.007 (1.001-1.035) Urine Protein Negative (Negative) Urine Glucose (UA) Negative (Negative) Urine Ketones 1+ H (Negative) Urine Blood Negative (Negative) Urine Nitrite Negative (Negative) Urine Bilirubin Negative (Negative) Urine Urobilinogen <2.0 (<2.0) mg/dL Ur Leukocyte Esterase Negative (Negative) 01/16/24 01/16/24 01/16/24 Range/Units 14:55 14:55 15:46 WBC (3.8-10.6) k/uL RBC (3.80-5.40) m/uL Hgb (11.4-16.0) gm/dL Hct (34.0-46.0) % MCV (80.0-100.0) fL MCH (25.0-35.0) pg MCHC (31.0-37.0) g/dL RDW (11.5-15.5) % Plt Count (150-450) k/uL MPV Neutrophils % % Lymphocytes % % Monocytes % % Eosinophils % % Basophils % % Neutrophils # (1.3-7.7) k/uL Lymphocytes # (1.0-4.8) k/uL Monocytes # (0-1.0) k/uL Eosinophils # (0-0.7) k/uL Basophils # (0-0.2) k/uL PT 11.5 (10.0-12.5) sec INR 1.1 (<1.2) APTT 24.3 (22.0-30.0) sec Sodium 126 L (137-145) mmol/L Potassium 4.4 (3.5-5.1) mmol/L Chloride 98 (98-107) mmol/L Carbon Dioxide 22 (22-30) mmol/L Anion Gap 6 mmol/L BUN 9 (7-17) mg/dL Creatinine 0.27 L (0.52-1.04) mg/dL Est GFR (CKD-EPI)AfAm >90 (>60 ml/min/1.73 sqM) Est GFR (CKD-EPI)NonAf >90 (>60 ml/min/1.73 sqM) Glucose 82 (74-99) mg/dL POC Glucose (mg/dL) (70-110) mg/dL POC Glu Parking Lot Attendant And Cashier ID Calcium 8.7 (8.4-10.2) mg/dL Total Bilirubin 0.8 (0.2-1.3) mg/dL AST 41 H (14-36) U/L ALT 24 (4-34) U/L Alkaline Phosphatase 49 (38-126) U/L Troponin I 0.013 (0.000-0.034) ng/mL Total Protein 6.9 (6.3-8.2) g/dL Albumin 4.2 (3.5-5.0) g/dL Urine Color Urine Appearance (Clear) Urine pH (5.0-8.0) Ur Specific [place] (1.001-1.035) Urine Protein (Negative) Urine Glucose (UA) (Negative) Urine Ketones (Negative) Urine Blood (Negative) Urine Nitrite (Negative) Urine Bilirubin (Negative) Urine Urobilinogen (<2.0) mg/dL Ur Leukocyte Esterase (Negative) - EKG Data -: EKG Interpreted by [place] EKG Comments: EKG performed at 14: 46 sinus rhythm rate of 75 [place] 176 QRS 85 QT/QTc 367/395 Disposition Clinical Impression: Weakness, Hyponatremia Disposition: ADMITTED IP TO THIS [facility] Condition: Fair Referrals: Glenny Cancino DO [Primary Care Provider] - 1-2 days Time of Disposition: 16:35
[2024-01-16 16:08] LABS: INR 1.1 (<1.2); Partial Thromboplastin Time 24.3 sec (22.0-30.0); Prothrombin Time 11.5 sec (10.0-12.5)
--- NOTE | 2024-01-16 16:27 | CT ---
EXAMINATION TYPE: CT brain wo con CT DLP: 1107.4 mGycm, Automated exposure control for dose reduction was used. DATE OF EXAM: 01/16/2024 3:35 PM COMPARISON: None.. CLINICAL INDICATION:Female, 88 years old with history of Altered mental status, weakness TECHNIQUE: Brain: Axial CT images of the brain were obtained with coronal and sagittal reformats created and rev iewed. Contrast used: None. Oral contrast used: None. FINDINGS: Brain: Extra-axial spaces: No abnormal extra-axial fluid collections. Ventricular system: Ventricles and sulci are prominent consistent with evolution. Cerebral parenchyma: No acute intraparenchymal hemorrhage or mass effect. The mancera-white junction is well differentiated. Scattered hypoattenuating areas are seen within the white matter. , Nonspecific but frequently associated with chronic microangiopathy Cerebellum: Unremarkable. Mass effect: No evidence of midline shift. Intracranial vasculature: unremarkable Soft tissues: Normal. Calvarium/osseous structures: No depressed skull fracture. Paranasal sinuses and mastoid air cells: Mild scattered paranasal sinus disease. Visualized orbits: Orbital contents are intact. IMPRESSION: No acute intracranial process. 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 Ea rly ischemic change could have this appearance. There is concern for acute stroke, MRI can differenti ate between microangiopathy and infarct.
[2024-01-16] MEDS ORDERED: NALOXONE 0.4 MG/ML 1 ML VIAL IV PRN (16:35)
[2024-01-16] MEDS ORDERED: ACETAMINOPHEN TAB 325 MG TAB PO PRN (16:35)
[2024-01-16] MEDS: SODIUM CHLORIDE 0.9% 1,000 ML IV SCH (17:57)
[2024-01-16] MEDS ORDERED: NON FORMULARY DRUG (Vit C/E/Zn/Coppr/Lutein/Zeaxan [Preservision Areds 2 Softgel] 1 EACH C PO SCH (21:00)
[2024-01-16] MEDS: LATANOPROST 0.005% OPHTH DROPS 2.5 ML BTL BOTH EYES SCH (21:13)
[2024-01-17 06:28] LABS: Basophils % (A) 1 %; Eosinophils # (A) 0.2 k/uL (0-0.7); Eosinophils % (A) 3 %; HCT 42.4 % (34.0-46.0); HGB 13.9 gm/dL (11.4-16.0); Lymphocytes # (A) 1.8 k/uL (1.0-4.8); Lymphocytes % (A) 34 %; MCH 30.1 pg (25.0-35.0); MCHC 32.8 g/dL (31.0-37.0); MCV 91.7 fL (80.0-100.0); Mean Platelet Volume 7.4; Monocytes # (A) 0.4 k/uL (0-1.0); Monocytes % (A) 8 %; Neutrophils # (A) 2.8 k/uL (1.3-7.7); Neutrophils % (A) 53 %; Platelet Count 264 k/uL (150-450); RBC 4.62 m/uL (3.80-5.40); RDW 13.3 % (11.5-15.5); WBC 5.4 k/uL (3.8-10.6)
[2024-01-17] MEDS: CHOLECALCIFEROL 25 MCG (1000 IU) TABLET PO SCH (08:18)
[2024-01-17] MEDS: CALCIUM CARB-VIT D 500 MG-5 MCG TAB PO SCH (08:18)
[2024-01-17] MEDS: LEVOCARNITINE 500 MG PO SCH (08:19)
[2024-01-17] MEDS: lisinopriL 5 MG TAB PO SCH (08:19)
[2024-01-17] MEDS ORDERED: NON FORMULARY DRUG (Omega-3 Fatty Acids/Fish Oil [Fish Oil 1,000 Mg Softgel] 1 EACH Capsul PO SCH (09:00)
[2024-01-17] MEDS ORDERED: ALPHA LIPOIC ACID 200 MG PO SCH (09:00)
--- NOTE | 2024-01-17 09:45 | P.HPIM ---
History of Present Illness H&P Date: 01/16/24 Chief Complaint: Weakness/altered mental status 88-year-old female, history of hypertension presents emergency with chief complaint of lightheadedness. Patient was brought in via EMS after family concern of patient not being herself. Patient states that she had mild headache and felt lightheaded since this morning states it may have been present yesterday. She denies any physical complaints denies any abdominal pain. Denies chest pain shortness of breath fever chills leg pain leg swelling no focal weakness. Blood work completed in ED reveals a sodium of 126, potassium 4.4, BUNs/creatinine of 9/0.27 and blood glucose of 82, WBC of 6.9, hemoglobin 13.5 and platelet count of 268, troponin of 0.013, AST elevated at 41 UA is unremarkable EKG sinus rhythm rate of 75 [place] 176 QRS 85 QT/QTc 367/395 CT of the brain does not reveal any acute intracranial process Chest x-ray is negative for any acute pulmonary disease Review of Systems ROS unobtainable: due to mental status Past Medical History Past Medical History: Hypertension Additional Past Medical History / Comment(s): macular degeneration. "Muscle atrophy with unknown diagnosis because patient would not complte muscle biopsy per neuros reccomendations. " History of Any Multi-Drug Resistant Organisms: None Reported Past Surgical History: Hysterectomy Past Anesthesia/Blood Transfusion Reactions: No Reported Reaction Past Psychological History: No Psychological Hx Reported Past Alcohol Use History: None Reported Past Drug Use History: None Reported Medications and Allergies Home Medications Medication Instructions Recorded Confirmed Type Alpha Lipoic Acid 200 mg PO DAILY 07/29/19 01/16/24 History Calcium Carbonate/Vitamin D3 2 tab PO DAILY 07/29/19 01/16/24 History [Calcium 600-Vit D3 10 mcg (400 Iu)] Latanoprost [Xalatan 0.005%] 1 drop BOTH EYES HS 07/29/19 01/16/24 History [place]-3 Fatty Acids/Fish Oil [Fish 1 cap PO DAILY 07/29/19 01/16/24 History Oil 1,000 mg Softgel] Vit C/E/Zn/Coppr/Lutein/Zeaxan 1 cap PO BID 07/29/19 01/16/24 History [Preservision Areds 2 Softgel] levOCARNitine [l-Carnitine] 500 mg PO DAILY 07/29/19 01/16/24 History Cholecalciferol (Vitamin D3) 75 mcg PO DAILY 01/16/24 01/16/24 History [Vitamin D3 (3000 Iu)] lisinopriL [Zestril] 5 mg PO DAILY 01/16/24 01/16/24 History Allergies Allergy/AdvReac Type Severity Reaction Status Date / Time No Known Allergies Allergy Verified 01/16/24 15:57 Physical Exam Vitals: Vital Signs Temp Pulse Resp BP Pulse Ox 01/16/24 19:29 97.2 F L 72 18 142/69 97 01/16/24 18:00 72 16 136/71 97 01/16/24 15:48 76 18 164/76 97 01/16/24 14:20 98.3 F 77 17 156/75 99 Intake and Output 01/16/24 01/16/24 01/16/24 06:59 14:59 22:59 Other: Weight 47.627 kg General appearance: alert, in no apparent distress Head exam: Present: atraumatic, normocephalic, normal inspection Eye exam: Present: normal appearance, PERRL, EOMI. Absent: scleral icterus, conjunctival injection, periorbital swelling ENT exam: Present: normal exam, normal oropharynx, mucous membranes moist Neck exam: Present: normal inspection, full ROM. Absent: tenderness, meningismus, lymphadenopathy Respiratory exam: Present: normal lung sounds bilaterally. Absent: respiratory distress, wheezes, rales, rhonchi, stridor Cardiovascular Exam: Present: regular rate, normal rhythm, normal heart sounds. Absent: systolic murmur, diastolic murmur, rubs, gallop, clicks GI/Abdominal exam: Present: soft, normal bowel sounds. Absent: distended, tenderness, guarding, rebound, rigid Back exam: Present: full ROM. Absent: tenderness Neurological exam: Present: alert, oriented X3, CN II-XII intact, reflexes normal. Absent: motor sensory deficit Skin exam: Present: warm, dry, intact, normal color. Absent: rash Results CBC & Chem 7: 01/17/24 06:11 01/16/24 14:55 Labs: Abnormal Lab Results - Last 24 Hours (Table) 01/16/24 01/16/24 Range/Units 14:55 14:55 Sodium 126 L (137-145) mmol/L Creatinine 0.27 L (0.52-1.04) mg/dL AST 41 H (14-36) U/L Urine Ketones 1+ H (Negative) Assessment and Plan Assessment: 1. Hyponatremia; sodium level at 125 upon arrival to ED; patient has been placed on IV fluids in form of normal saline at rate of 75 cc an hour; will monitor electrolytes closely 2. Weakness; likely related to electrolyte abnormality; will consult PT/OT 3. Altered mental status; possibly secondary to hyponatremia versus other etiology -- CT of the head was completed in ED which was negative for any acute process -- We will monitor neurochecks -Consult neurology for further evaluation 4. Mild transaminitis; etiology unclear; we will monitor liver enzymes and order hepatic ultrasound if liver enzymes continue to trend up 5. Hypertension; lisinopril 5 mg daily 6. Vitamin D deficiency; vitamin D 375 mcg daily DVT prophylaxis; SCDs/subcu Lovenox CODE STATUS; full code
[2024-01-17] MEDS: HEPARIN SODIUM,PORCINE 5,000 UNIT/ML 1 ML VIAL SQ SCH (09:58)
[2024-01-17 10:18] LABS: BUN/Creat Ratio 18.75 Ratio (12.00-20.00); Blood Urea Nitrogen 7.5 mg/dL (9.0-27.0); Calcium 8.6 mg/dL (8.7-10.3); Chloride 101 mmol/L (96-109); Glucose 89 mg/dL (70-110); Potassium 4.6 mmol/L (3.5-5.5); Sodium 133 mmol/L (135-145)
[2024-01-17] MEDS: ASPIRIN 81 MG PO SCH (20:50)
[2024-01-17] MEDS: CLOPIDOGREL 75 MG TAB PO SCH (20:50)
--- NOTE | 2024-01-18 00:14 | US ---
EXAMINATION TYPE: US carotid duplex BILAT DATE OF EXAM: 01/17/2024 COMPARISON: NONE CLINICAL INDICATION: Female, 88 years old with history of TIA; Patient states she was having speech d ifficulties. HTN- on meds. TECHNIQUE: Carotid duplex ultrasound examination. Indirect Doppler criteria was utilized. FINDINGS: EXAM MEASUREMENTS: RIGHT: Peak Systolic Velocity (PSV) cm/sec ----- Right CCA: 64.5 ----- Right ICA: 83.1 ----- Right ECA: 75.7 ICA/CCA ratio: 1.3 RIGHT: End Diastole cm/sec ----- Right CCA: 11.3 ----- Right ICA: 23.7 ----- Right ECA: 0.0 LEFT: Peak Systolic Velocity (PSV) cm/sec ----- Left CCA: 78.7 ----- Left ICA: 97.4 ----- Left ECA: 115.7 ICA/CCA ratio: 1.2 LEFT: End Diastole cm/sec ----- Left CCA: 18.2 ----- Left ICA: 23.7 ----- Left ECA: 0.0 VERTEBRALS (direction of flow): Right Vertebral: Antegrade Left Vertebral: Antegrade Rhythm: Normal TENNIS INSTRUCTOR NOTES: Bilateral wall thickening. Plaque seen in bilateral bulbs. Plaque more prominent at left carotid bulb noted. No elevated velocities. IMPRESSION: No hemodynamically significant stenosis in either internal carotid artery. Criteria for Assigning % of Stenosis / Diameter reduction (Estimation based on the indirect measurements of the internal carotid artery velocities (ICA PSV). 1. Normal (no stenosis)=ICA PSV < 125 cm/s: ratio < 2.0: ICA EDV<40 cm/s. 2. Less than 50% stenosis=ICA PSV < 125 cm/s: ratio < 2.0: ICA EDV<40 cm/s. 3. 50 to 69% stenosis=ICA PSV of 125 to 230 cm/s: ration 2.0 ? 4.0: ICA EDV 40-100 cm/s. 4. Greater than 70% stenosis to near occlusion= ICA PSV > 230 cm/s: ratio > 4.0: ICA EDV > 100 cm/s. 5. Near occlusion= ICA PSV velocities may be low or undetectable: variable ratio and ICA EDV. 6. Total occlusion=unable to detect flow.
[2024-01-18 09:32] LABS: Basophils # (A) 0.04 X 10*3/uL (0.00-0.10); Basophils % (A) 0.8 %; Eosinophils # (A) 0.12 X 10*3/uL (0.04-0.35); Eosinophils % (A) 2.5 %; HCT 42.1 % (37.2-46.3); Lymphocytes # (A) 1.57 X 10*3/uL (0.90-5.00); Lymphocytes % (A) 32.6 %; MCH 30.3 pg (27.0-32.0); MCHC 33.3 g/dL (32.0-37.0); MCV 91.1 FL (80.0-97.0); Mean Platelet Volume 8.6 FL (9.5-12.2); Monocytes # (A) 0.66 X 10*3/uL (0.20-1.00); Monocytes % (A) 13.7 %; NRBC Per 100 WBC 0 X 10*3/uL (0.00-0.01); Neutrophils # (A) 2.41 X 10*3/uL (1.80-7.70); Neutrophils % (A) 50.2 %; Platelet Count 273 X 10*3/uL (140-440); RBC 4.62 X 10*6/uL (4.10-5.20); RDW 13.4 % (11.5-14.5); WBC 4.81 X 10*3/uL (4.50-10.00)
[2024-01-18 11:12] LABS: ALT 19 U/L (8-44); AST 23 U/L (13-35); Albumin 3.7 g/dL (3.8-4.9); Albumin/Globulin Ratio 1.61 Ratio (1.60-3.17); Alkaline Phosphatase 43 U/L (41-126); Bilirubin, Conjugated <0.20 mg/dL (0.20-0.40); Blood Urea Nitrogen 8.4 mg/dL (9.0-27.0); Calcium 8.5 mg/dL (8.7-10.3); Carbon Dioxide 21.4 mmol/L (21.6-31.8); Chloride 103 mmol/L (96-109); Chol/HDL Ratio 3.31 Ratio; Globulin 2.3 g/dL (1.6-3.3); Glucose 113 mg/dL (70-110); LDL Cholesterol,Calculated 138.6 mg/dL (0.0-131.0); Potassium 4.1 mmol/L (3.5-5.5); Sodium 136 mmol/L (135-145); Total Bilirubin <0.2 mg/dL (0.3-1.2)
--- NOTE | 2024-01-18 11:14 | P.CNNES ---
History of Present Illness Consult date: 01/17/24 Requesting physician: Tomás Cortes Reason for Consult: AMS History of Present Illness: Patient is a 88-year-old right-handed female came to the hospital by ambulance yesterday at 2:13 PM for possible TIA. Patient states that she was going to get the mail from outside, standing by the door, when all of a sudden, she could not see straight, could not walk, was scared to walk. The mail lady helped her get to the chair. She couldn't talk, could not get words out, could not think the right words. Her son-in-law kept her on the phone until her son arrived. There was no numbness, tingling, focal weakness, facial droop. Her speech difficulty improved once she arrived to the hospital. Patient admits to having little headache above the left eye at the time of this event, which went away later at night. As per EMS flowsheet when they arrived, patient was with the family, mentioning that she is not acting her normal self. Patient's son mentions that he received a call from the mail caller that she was a bit disoriented which is not normal for her. When the son arrived at the house, she was very shaky and not herself. When EMS arrived, patient was sitting in her wheelchair. Patient mentions that she feels a bit weak and has a slight headache but otherwise feels fine. Patient placed on the registered nurse cardiac, showing a normal sinus rhythm with occasional PVCs. [place] stroke scale was negative. Fast EEG also negative. Vitals at the scene was blood pressure 190/89, which came down to 180/87. Pulse rate 88 respiration 18 saturation 97%, temperature 98.3. Blood test shows normal CBC PT PTT, sodium 126 potassium 4.4, normal renal, hepatic panel, troponin and a UA. EKG showed sinus rhythm. CT head revealed no acute intracranial process. Cerebral white matter changes, most often associated with chronic microangiopathy but nonspecific. Early ischemic change could have this appearance. I personally reviewed CT head, agree with the findings. Patient does take aspirin 81 mg daily. Patient has history of hypertension for 6 years, hyperlipidemia but denies diabetes. She has never smoked. Patient states that she uses walker for last 3 years since she suffered from a fall, broke her both kneecaps. Patient also has history of macular degeneration, glaucoma, for which she gets shots every 7 weeks. All her symptoms have resolved, and she feels back to baseline. Review of Systems All review of systems completely unremarkable except as mentioned in HPI. Denies any chest pain shortness of breath. She does have chronic weakness of her legs. Her right knee is hurting. Past Medical History Past Medical History: Hypertension Additional Past Medical History / Comment(s): macular degeneration. "Muscle atrophy with unknown diagnosis because patient would not complte muscle biopsy per neuros reccomendations. " History of Any Multi-Drug Resistant Organisms: None Reported Past Surgical History: Hysterectomy Past Anesthesia/Blood Transfusion Reactions: No Reported Reaction Past Psychological History: No Psychological Hx Reported Past Alcohol Use History: None Reported Past Drug Use History: None Reported Medications and Allergies Home Medications Medication Instructions Recorded Confirmed Type Alpha Lipoic Acid 200 mg PO DAILY 07/29/19 01/16/24 History Calcium Carbonate/Vitamin D3 2 tab PO DAILY 07/29/19 01/16/24 History [Calcium 600-Vit D3 10 mcg (400 Iu)] Latanoprost [Xalatan 0.005%] 1 drop BOTH EYES HS 07/29/19 01/16/24 History Hazen-3 Fatty Acids/Fish Oil [Fish 1 cap PO DAILY 07/29/19 01/16/24 History Oil 1,000 mg Softgel] Vit C/E/Zn/Coppr/Lutein/Zeaxan 1 cap PO BID 07/29/19 01/16/24 History [Preservision Areds 2 Softgel] levOCARNitine [l-Carnitine] 500 mg PO DAILY 07/29/19 01/16/24 History Cholecalciferol (Vitamin D3) 75 mcg PO DAILY 01/16/24 01/16/24 History [Vitamin D3 (3000 Iu)] lisinopriL [Zestril] 5 mg PO DAILY 01/16/24 01/16/24 History Allergies Allergy/AdvReac Type Severity Reaction Status Date / Time No Known Allergies Allergy Verified 01/16/24 15:57 Physical Examination - Vital Signs Vital Signs: Vital Signs Temp Pulse Resp BP Pulse Ox 01/17/24 19:52 16 01/17/24 13:22 97.7 F 85 16 152/77 98 01/17/24 07:47 97.9 F 73 16 144/75 99 01/17/24 02:00 97.7 F 71 16 117/69 97 Intake and Output 01/17/24 01/17/24 01/17/24 06:59 14:59 22:59 Intake Total 1020 1140 Output Total 750 Balance 270 1140 Intake: Intake, IV Titration 900 900 Amount Sodium Chloride 0.9% 1, 900 900 000 ml @ 75 mls/hr IV . [id number] [facility] Rx#:[id number] Oral 120 240 Output: Urine 750 Other: Voiding Method Toilet Toilet External Catheter External Catheter # Voids 1 2 # Bowel Movements 0 Patient is an elderly female, very pleasant, in no acute distress. Patient is alert awake oriented to time place and person. Speech and language f unctions are normal. Patient can name and repeat very well. No aphasia or dysarthria. Attention, concentration and fund of knowledge is adequate. On cranial nerve examination, pupils are equal, round and reacting to light, visual robertson are full on confrontation, with no neglect on double simultaneous stimulation. Extraocular muscles are intact with no nystagmus. Face is symmetric, tongue protrudes to the midline. Palatal elevation and sensation normal, hearing and shoulder shrug normal, facial sensation normal. On muscle strength testing, there is no pronator drift. The strength appears normal in the arms and legs except weakness of FDP muscles, and vastus muscles bilaterally. Patient appears to have clinical evidence of inclusion body myositis. Her deltoid, biceps, triceps are normal. Ankle dorsiflexion is normal. Knee extension is no more than 1-2 bilaterally. and the strength is normal in arms and legs distally and proximally. Deep tendon reflexes are very hypoactive. Sensory to touch is equal with no neglect on double simultaneous stimulation. Cerebellar function showed no ataxia for whctak-jw-lkyg testing. No dysdiadochokinesia. Cannot perform for lanq-dy-thbq testing bilaterally. Patient has very hardness probably fibrosis of bilateral quadriceps. Gait deferred.. On general examination, there is no carotid bruit or murmur, S1-S2 audible. Chest is clear on consultation. Abdomen is soft nontender. No organomegaly, bowel sounds present. Peripheral pulses are present. No peripheral edema. Results - Laboratory Findings CBC and BMP: 01/18/24 06:21 01/17/24 06:11 Abnormal Lab Findings: Abnormal Labs 0601/16/24 01/17/24 14:55 14:55 06:11 Sodium 126 L 133 L BUN 7.5 L Creatinine 0.27 L 0.4 L Calcium 8.6 L AST 41 H Urine Ketones 1+ H Assessment and Plan Assessment: * Probable TIA, manifesting with gait difficulty, speech difficulty. Symptoms seem to have resolved. Current NIH stroke scale is 0. * Hyponatremia 126, unclear cause, improved. 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 * Glaucoma, macular degeneration Plan: * Patient needs workup for TIA. * 2-D echo with bubble study to rule out PFO * Carotid Doppler, revealed no hemodynamically significant stenosis in either ICA. Antegrade flow in both vertebral arteries. * Fasting a.m. lipid panel. Patient currently takes fish oil. * Hemoglobin A1c 6.0 * Optimize control of blood pressure. * Patient has been taking aspirin 81 mg daily. She has failed aspirin. We will start DAPT with Plavix 75 mg daily and aspirin 81 mg. After 21 days, may stop aspirin and continue Plavix. * Neuro checks every 4 hours * Telemetry monitoring rule out any arrhythmia * PT, OT, speech therapy * DVT prophylaxis: Heparin 5000 units subcu every 12 hours * Neurology will continue to follow. Thank you for the consult.
--- NOTE | 2024-01-18 15:14 | P.PN ---
Subjective Progress Note Date: 01/17/24 88-year-old female, history of hypertension presents emergency with chief complaint of lightheadedness. Patient was brought in via EMS after family concern of patient not being herself. Patient states that she had mild headache and felt lightheaded since this morning states it may have been present yest erday. She denies any physical complaints denies any abdominal pain. Denies chest pain shortness of breath fever chills leg pain leg swelling no focal weakness. Blood work completed in ED reveals a sodium of 126, potassium 4.4, BUNs/creatinine of 9/0.27 and blood glucose of 82, WBC of 6.9, hemoglobin 13.5 and platelet count of 268, troponin of 0.013, AST elevated at 41 UA is unremarkable EKG sinus rhythm rate of 75 MI 176 QRS 85 QT/QTc 367/395 CT of the brain does not reveal any acute intracranial process Chest x-ray is negative for any acute pulmonary disease Objective - Vital Signs Vital signs: Vital Signs Temp 97.9 F 01/17/24 07:47 Pulse 73 01/17/24 07:47 Resp 16 01/17/24 07:47 BP 144/75 01/17/24 07:47 Pulse Ox 99 01/17/24 07:47 FiO2 Intake & Output 01/16/24 01/17/24 01/17/24 18:59 06:59 18:59 Intake Total 1140 Output Total 750 Balance 390 Weight 47.627 kg 47.627 kg Intake: Intake, IV Titration 900 Amount Sodium Chloride 0.9% 1, 900 000 ml @ 75 mls/hr IV . [id number] [facility] Rx#:[id number] Oral 240 Output: Urine 750 Other: Voiding Method Incontinent External Catheter # Voids 1 # Bowel Movements 0 - Exam General appearance: alert, in no apparent distress Head exam: Present: atraumatic, normocephalic, normal inspection Eye exam: Present: normal appearance, PERRL, EOMI. Absent: scleral icterus, conjunctival injection, periorbital swelling ENT exam: Present: normal exam, normal oropharynx, mucous membranes moist Neck exam: Present: normal inspection, full ROM. Absent: tenderness, meningismus, lymphadenopathy Respiratory exam: Present: normal lung sounds bilaterally. Absent: respiratory distress, wheezes, rales, rhonchi, stridor Cardiovascular Exam: Present: regular rate, normal rhythm, normal heart sounds. Absent: systolic murmur, diastolic murmur, rubs, gallop, clicks GI/Abdominal exam: Present: soft, normal bowel sounds. Absent: distended, tenderness, guarding, rebound, rigid Back exam: Present: full ROM. Absent: tenderness Neurological exam: Present: alert, oriented X3, CN II-XII intact, reflexes normal. Absent: motor sensory deficit Skin exam: Present: warm, dry, intact, normal color. Absent: rash - Labs CBC & Chem 7: 01/18/24 06:21 01/18/24 06:21 Labs: Abnormal Lab Results - Last 24 Hours (Table) 01/16/24 01/16/24 Range/Units 14:55 14:55 Sodium 126 L (137-145) mmol/L Creatinine 0.27 L (0.52-1.04) mg/dL AST 41 H (14-36) U/L Urine Ketones 1+ H (Negative) Assessment and Plan Assessment: 1. Hyponatremia; sodium level at 125 upon arrival to ED; patient has been placed on IV fluids in form of normal saline at rate of 75 cc an hour; will monitor electrolytes closely 2. Weakness; likely related to electrolyte abnormality; will consult PT/OT 3. Altered mental status; possibly secondary to hyponatremia versus other etiology -- CT of the head was completed in ED which was negative for any acute process -- We will monitor neurochecks -Consult neurology for further evaluation 4. Mild transaminitis; etiology unclear; we will monitor liver enzymes and orde r hepatic ultrasound if liver enzymes continue to trend up 5. Hypertension; lisinopril 5 mg daily 6. Vitamin D deficiency; vitamin D 375 mcg daily DVT prophylaxis; SCDs/subcu Lovenox CODE STATUS; full code
--- NOTE | 2024-01-18 15:17 | P.PN ---
Subjective Progress Note Date: 01/18/24 88-year-old female, history of hypertension presents emergency with chief complaint of lightheadedness. Patient was brought in via EMS after family concern of patient not being herself. Patient states that she had mild headache and felt lightheaded since this morning states it may have been present yest erday. She denies any physical complaints denies any abdominal pain. Denies chest pain shortness of breath fever chills leg pain leg swelling no focal weakness. Blood work completed in ED reveals a sodium of 126, potassium 4.4, BUNs/creatinine of 9/0.27 and blood glucose of 82, WBC of 6.9, hemoglobin 13.5 and platelet count of 268, troponin of 0.013, AST elevated at 41 UA is unremarkable EKG sinus rhythm rate of 75 ME 176 QRS 85 QT/QTc 367/395 CT of the brain does not reveal any acute intracranial process Chest x-ray is negative for any acute pulmonary disease 01/18/2024 Patient is seen and evaluated with son at bedside; reports some improvement in weakness\ Vital signs reviewed with temperature 97.6, pulse 80, respiration 15 and blood pressure 137/79 Lab review reveals WBC of 4.8, hemoglobin of 14 and platelet count of 273, sodium 136, potassium 4.1, BUNs/creatinine of 8.4/0.4 Patient has been evaluated by neurology for mental status change with gait diffi culty and speech problem; diagnosed with probable TIA -- Patient is recommended further TIA workup with 2D echo, carotid Doppler, lipid profile with HbA1c -- We will continue to monitor neurochecks per protocol -- PT/OT/ELECTRIC REFRIGERATOR SERVICER consulted -- Patient has been placed on aspirin 81 mg daily along with Plavix 75 mg daily with recommendations to discontinue aspirin after 21 days and patient to continue with Plavix -Has been cleared for DVT prophylaxis with subcu heparin Objective - Vital Signs Vital signs: Vital Signs Temp 97.6 F 01/18/24 08:00 Pulse 80 01/18/24 08:00 Resp 15 01/18/24 08:00 BP 137/79 01/18/24 08:00 Pulse Ox 98 01/18/24 08:00 FiO2 Intake & Output 01/17/24 01/18/24 01/18/24 18:59 06:59 18:59 Intake Total 1020 120 Balance 1020 120 Intake: Intake, IV Titration 900 Amount Sodium Chloride 0.9% 1, 900 000 ml @ 75 mls/hr IV . [id number] [facility] Rx#:[id number] Oral 120 120 Other: Voiding Method Toilet Toilet Toilet External Catheter External Catheter External Catheter # Voids 2 2 - Exam General appearance: alert, in no apparent distress Head exam: Present: atraumatic, normocephalic, normal inspection Eye exam: Present: normal appearance, PERRL, EOMI. Absent: scleral icterus, conjunctival injection, periorbital swelling ENT exam: Present: normal exam, normal oropharynx, mucous membranes moist Neck exam: Present: normal inspection, full ROM. Absent: tenderness, meningismus, lymphadenopathy Respiratory exam: Present: normal lung sounds bilaterally. Absent: respiratory distress, wheezes, rales, rhonchi, stridor Cardiovascular Exam: Present: regular rate, normal rhythm, normal heart sounds. Absent: systolic murmur, diastolic murmur, rubs, gallop, clicks GI/Abdominal exam: Present: soft, normal bowel sounds. Absent: distended, tenderness, guarding, rebound, rigid Back exam: Present: full ROM. Absent: tenderness Neurological exam: Present: alert, oriented X3, CN II-XII intact, reflexes normal. Absent: motor sensory deficit Skin exam: Present: warm, dry, intact, normal color. Absent: rash - Labs CBC & Chem 7: 01/18/24 06:21 24 06:21 Labs: Abnormal Lab Results - Last 24 Hours (Table) 01/18/24 01/18/24 Range/Units 06:21 06:21 MPV 8.6 L (9.5-12.2) FL Carbon Dioxide 21.4 L (21.6-31.8) mmol/L BUN 8.4 L (9.0-27.0) mg/dL Creatinine 0.4 L (0.6-1.5) mg/dL BUN/Creatinine Ratio 21.00 H (12.00-20.00) Ratio Glucose 113 H (70-110) mg/dL Calcium 8.5 L (8.7-10.3) mg/dL Total Bilirubin <0.2 L (0.3-1.2) mg/dL Total Protein 6.0 L (6.2-8.2) g/dL Albumin 3.7 L (3.8-4.9) g/dL Cholesterol 226.00 H (0.00-200.00) mg/dL LDL Cholesterol, Calc 138.6 H (0.0-131.0) mg/dL HDL Cholesterol 68.30 H (40.00-60.00) mg/dL Assessment and Plan Assessment: 1. Hyponatremia; sodium level at 125 upon arrival to ED; patient has been placed on IV fluids in form of normal saline at rate of 75 cc an hour; will monitor electrolytes closely 2. Weakness; likely related to electrolyte abnormality; will consult PT/OT 3. Altered mental status; possibly secondary to hyponatremia versus other etiology -- CT of the head was completed in ED which was negative for any acute process -- We will monitor neurochecks -Consult neurology for further evaluation 4. Mild transaminitis; etiology unclear; we will monitor liver enzymes and order hepatic ultrasound if liver enzymes continue to trend up 5. Hypertension; lisinopril 5 mg daily 6. Vitamin D deficiency; vitamin D 375 mcg daily DVT prophylaxis; SCDs/subcu Lovenox CODE STATUS; full code
[2024-01-18 15:21] VITALS: RESP 16
[2024-01-19 09:22] LABS: Calcium 8.7 mg/dL (8.7-10.3); Chloride 102 mmol/L (96-109); Glucose 111 mg/dL (70-110); Potassium 4.2 mmol/L (3.5-5.5); Sodium 134 mmol/L (135-145)
--- NOTE | 2024-01-19 15:18 | CA ---
Transthoracic Echo Report Name: Daria Santo Age: 88 Gender: F : 1935 Exam Date: 01/19/2024 11:01 Exam Location: [facility] Ht (in): 60 Wt (lb): 105 Ordering Physician: Neto Chun MD Attending/Referring Phys: Chief Client Officer Adamaris Aguillon RDCS Procedure CPT: Indications: tia Cardiac Hx: Technical Quality: Fair Contrast 1: Total Dose (mL): Contrast 2: Total Dose (mL): MEASUREMENTS (Male / Female) Normal Values 2D ECHO LV Diastolic Diameter PLAX 2.8 cm 4.2 - 5.9 / 3.9 - 5.3 cm LV Systolic Diameter PLAX 1.5 cm IVS Diastolic Thickness 1.0 cm 0.6 - 1.0 / 0.6 - 0.9 cm LVPW Diastolic Thickness 0.9 cm 0.6 - 1.0 / 0.6 - 0.9 cm LV Relative Wall Thickness 0.7 LA Volume 39.4 cm??? 18 - 58 / 22 - 52 cm??? LA Volume Index 27.7 cm???/m??? 16 - 28 cm???/m??? DOPPLER AV Peak Velocity 105.2 cm/s AV Peak Gradient 4.4 mmHg AV Mean Velocity 75.9 cm/s AV Mean Gradient 2.5 mmHg AV Velocity Time Integral 20.2 cm LVOT Peak Velocity 109.1 cm/s LVOT Peak Gradient 4.8 mmHg LVOT Velocity Time Integral 21.3 cm MV Area PHT 1.8 cm??? Mitral E Point Velocity 81.0 cm/s Mitral A Point Velocity 112.8 cm/s Mitral E to A Ratio 0.7 MV Deceleration Time 421.0 ms MV E' Velocity 3.9 cm/s Mitral E to MV E' Ratio 20.9 FINDINGS Left Ventricle Normal left ventricular systolic function with no obvious regional wall motion abnormalities. Left ventricular cavity size normal. Left ventricular wall thickness normal. Left ventricular ejection fraction is estimated at 55-60 %. Right Ventricle Normal right ventricular size and function. Right ventricular systolic pressure within normal limits. Right Atrium Normal right atrial size. Left Atrium Normal left atrial size. Mitral Valve Structurally normal mitral valve. Mitral valve thickened. Moderate mitral annular calcification. [id number] mitral regurgitation. Aortic Valve No aortic valve stenosis or regurgitation. Tricuspid Valve Structurally normal tricuspid valve. Mild tricuspid regurgitation. Pulmonic Valve Structurally normal pulmonic valve. Trace pulmonic regurgitation. Pericardium No pericardial effusion. Aorta Normal size aortic root and proximal ascending aorta. CONCLUSIONS Normal LV size and function Previewed by: Dr. Dameon Gonzalez MD (Electronically Signed) Final Date: 19 January 2024 15:17
--- NOTE | 2024-01-19 15:23 | CDI ---
Documentation Clarification Form Date: 01/19/2024 03:05:38 PM From: Laura De Dios RN, CCDS Phone: [phone] Admit Date: 01/16/2024 04:29:00 PM Patient Name: Daria Santo Visit Number: [id number] Discharge Date: ATTENTION: The Clinical Documentation Specialists (CDI) and [facility] Coding Staff appreciate your assistance in clarifying documentation. Please respond to the clarification below the line at the bottom and electronically sign. The CDI & [facility] Coding staff will review the response and follow-up if needed. Please note: Queries are made part of the Legal Health Record. If you have any questions, please contact the author of this message via ITS. Dr. Neo Forbes Your patient has the documented symptom of Altered Mental Status in the H/P and subsequent progress notes. Additional clarification regarding the etiology/cause of this symptom is requested. History/Risk Factors: Hypertension Clinical Indicators: 88-year-old female presents to ED mild headache and felt lightheaded weakness, altered mental status. Per family not acting her normal self. 01/15 VS 156/75 77 17 98.4 99% RA 01/15 Labs: WBC 6.9 NA+ 126 01/16 Labs: NA 133 01/15 CT Brain: No acute intracranial process. Cerebral white matter changes, most often associated with chronic microangiopathy but nonspecific. Early ischemic change could have this appearance. 01/16 Carotid Ultrasound bilateral: No hemodynamically significant stenosis in either internal carotid artery. Treatment: Telemetry Monitoring rule out any arrhythmia Neuro checks every 4 hours ECHO ASA 81 MG PO Daily. Lipitor 40 MG PO HS Plavix 75 MG PO Daily 01/16-01/18 Please clarify the etiology of the symptom of Altered Mental Status if known? [ ] Metabolic Encephalopathy due to hyponatremia [ ] Other condition (please specify) [ ] Unable to determine (Template Last Revised: September 2020) Altered mental status; metabolic encephalopathy secondary to hyponatremia Dictated By: Nicole Johns Signed By: <Electronically signed by Nicole Johns> 01/20/24 0532 MTDD
--- NOTE | 2024-01-19 16:25 | P.PN ---
Subjective Progress Note Date: 01/19/24 Patient was seen for a follow-up. Patient denies any new neurological symptoms. Objective - Vital Signs Vital signs: Vital Signs Temp 97.9 F 01/19/24 12:19 Pulse 82 01/19/24 12:19 Resp 16 01/19/24 12:19 BP 151/82 01/19/24 12:19 Pulse Ox 97 01/19/24 12:19 FiO2 Intake & Output 01/18/24 01/19/24 01/19/24 18:59 06:59 18:59 Intake Total 540 Balance 540 Intake: Oral 540 Other: Voiding Method Toilet Toilet External Catheter # Voids 2 3 1 # Bowel Movements 1 - Exam Completely normal. Mental status normal. Cranial nerves normal. Muscle strength normal. - Labs CBC & Chem 7: 01/18/24 06:21 01/19/24 05:44 Labs: Abnormal Lab Results - Last 24 Hours (Table) 01/19/24 Range/Units 05:44 Sodium 134 L (135-145) mmol/L Creatinine 0.4 L (0.6-1.5) mg/dL BUN/Creatinine Ratio 32.50 H (12.00-20.00) Ratio Glucose 111 H (70-110) mg/dL Assessment and Plan Assessment: * Probable TIA, manifesting with gait difficulty, speech difficulty. Symptoms seem to have resolved. Current NIH stroke scale is 0. * Hyponatremia 126, unclear cause, improved. 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 * Glaucoma, macular degeneration Plan: * Patient underwent workup for TIA. * 2-D echo revealed normal left ventricular size and systolic function with EF 55 to 60%. No obvious regional wall motion abnormalities. Normal right ventricular size and function. Normal left atrial size. No valvular abnormalities. * Carotid Doppler, revealed no hemodynamically significant stenosis in either ICA. Antegrade flow in both vertebral arteries. * Fasting a.m. lipid panel cholesterol 226, LDL 138, HDL 68, triglycerides 95. Patient started on Lipitor 40 mg daily. Patient currently takes fish oil. * Hemoglobin A1c 6.0 * Optimize control of blood pressure. * Patient has been taking aspirin 81 mg daily. She has failed aspirin. We will start DAPT with Plavix 75 mg daily and aspirin 81 mg. After 21 days, may stop aspirin and continue Plavix. * Telemetry monitoring rule out any arrhythmia * DVT prophylaxis: Heparin 5000 units subcu every 12 hours * Neurologically clear for discharge with above recommendations.
[2024-01-19] MEDS: ATORVASTATIN 40 MG TAB PO SCH (21:46)
--- NOTE | 2024-01-20 05:32 | P.PN ---
Subjective Progress Note Date: 01/19/24 88-year-old female, history of hypertension presents emergency with chief complaint of lightheadedness. Patient was brought in via EMS after family concern of patient not being herself. Patient states that she had mild headache and felt lightheaded since this morning states it may have been present ye sterday. She denies any physical complaints denies any abdominal pain. Denies chest pain shortness of breath fever chills leg pain leg swelling no focal weakness. Blood work completed in ED reveals a sodium of 126, potassium 4.4, BUNs/creatinine of 9/0.27 and blood glucose of 82, WBC of 6.9, hemoglobin 13.5 and platelet count of 268, troponin of 0.013, AST elevated at 41 UA is unremarkable EKG sinus rhythm rate of 75 VA 176 QRS 85 QT/QTc 367/395 CT of the brain does not reveal any acute intracranial process Chest x-ray is negative for any acute pulmonary disease 01/18/2024 Patient is seen and evaluated with son at bedside; reports some improvement in weakness\ Vital signs reviewed with temperature 97.6, pulse 80, respiration 15 and blood pressure 137/79 Lab review reveals WBC of 4.8, hemoglobin of 14 and platelet count of 273, sodium 136, potassium 4.1, BUNs/creatinine of 8.4/0.4 Patient has been evaluated by neurology for mental status change with gait dif ficulty and speech problem; diagnosed with probable TIA -- Patient is recommended further TIA workup with 2D echo, carotid Doppler, lipid profile with HbA1c -- We will continue to monitor neurochecks per protocol -- PT/OT/SIGN HANGER consulted -- Patient has been placed on aspirin 81 mg daily along with Plavix 75 mg daily with recommendations to discontinue aspirin after 21 days and patient to continue with Plavix -Has been cleared for DVT prophylaxis with subcu heparin 01/19/2024 Patient seen and evaluated in follow-up this morning sodium level has improved and patient is tolerating oral intake. Patient evaluated by neurology and is continued on aspirin and Plavix along with statin therapy. Awaiting PT/OT therapy evaluation. Patient reports to feeling improved and is asking when she is able to go home. Will await PT/OT therapy and discuss further with case management regarding discharge planning. Patient is afebrile with no reports of chest pain or shortness of breath. No reported nausea or vomiting and patient is tolerating diet. Review of systems: Constitutional: No reports of fatigue, fever, or chills Cardiovascular: No reports of chest pain or palpitations Respiratory: No reports of shortness of breath or cough GI: No reports of nausea, vomiting, or diarrhea : No reports of dysuria or retention Neurovascular: reports of generalized weakness but feels improved All medications have been reviewed Physical exam: Gen: This is a 88-year-old female who is awake, alert and oriented x 3, well- developed, thin built, elderly appearing HEENT: Head is atraumatic, normocephalic. Pupils equal, round. Sclerae is anicteric. NECK: Supple. No JVD. No lymphadenopathy. No thyromegaly. LUNGS: Clear to auscultation. No wheezes or rhonchi. No intercostal retractions. HEART: Regular rate and rhythm. No murmur. ABDOMEN: Soft. Bowel sounds are present. No masses. No tenderness. EXTREMITIES: No pedal edema. No calf tenderness. NEUROLOGICAL: Patient is awake, alert and oriented x3. Cranial nerves 2 through 12 are grossly intact. Assessment: -Hyponatremia; sodium level at 125 upon arrival to ED; likely secondary to poor oral intake -Weakness; likely related to electrolyte abnormality -Altered mental status; metabolic encephalopathy secondary to hyponatremia -Mild transaminitis; etiology unclear; we will monitor liver enzymes and order hepatic ultrasound if liver enzymes continue to trend up -Hypertension -Vitamin D deficiency -GI prophylaxis -DVT prophylaxis; SCDs/subcu Lovenox -full code Plan: Patient's sodium has improved and continue to encourage oral intake Awaiting PT/OT therapy evaluation to discuss further with case management regarding discharge planning. Patient reports would like to return home on discharge Follow-up on repeat labs in the a.m. and replace electrolytes per protocol encouraged oral intake Neurology has evaluated the patient recommending aspirin and Plavix for 21 days and then discontinue Plavix and close outpatient follow-up with neurology Will discharge planning in the next 24 hours Overall prognosis is guarded The impression and plan of care has been dictated by Nicole Johns, Nurse Practitioner as directed. Dr. Trevon MD I have performed a history and examination and MDM of this patient, discussed t he same with the dictator, and agree with the dictator's assessment and plan as written ,documented as a scribe. Based on total visit time, I have performed more than 50% of the visit. Objective - Vital Signs Vital signs: Vital Signs Temp 97.6 F 01/19/24 07:17 Pulse 77 01/19/24 07:17 Resp 16 01/19/24 07:17 BP 129/74 01/19/24 07:17 Pulse Ox 98 01/19/24 07:17 FiO2 Intake & Output 01/18/24 01/19/24 01/19/24 18:59 06:59 18:59 Intake Total 540 Balance 540 Intake: Oral 540 Other: Voiding Method Toilet Toilet External Catheter # Voids 2 3 1 # Bowel Movements 1 - Labs CBC & Chem 7: 01/18/24 06:21 01/19/24 05:44 Labs: Abnormal Lab Results - Last 24 Hours (Table) 01/19/24 Range/Units 05:44 Sodium 134 L (135-145) mmol/L Creatinine 0.4 L (0.6-1.5) mg/dL BUN/Creatinine Ratio 32.50 H (12.00-20.00) Ratio Glucose 111 H (70-110) mg/dL
[2024-01-20 09:07] LABS: Chloride 104 mmol/L (96-109); Glucose 116 mg/dL (70-110); Potassium 4.6 mmol/L (3.5-5.5); Sodium 136 mmol/L (135-145)
[2024-01-20 09:08] LABS: Calcium 8.4 mg/dL (8.7-10.3)
[2024-01-20 12:29] VITALS: BP 153/68; PULSE 80; TEMP 98.3
== END 2024-01-20 17:26 | disposition home or self-care (01) | DRG 640 ==
LOC: EC 14:13 → 5NMEDONC 16:29
PROVIDERS: ADMIT Internal Medicine; ATTEND Internal Medicine
DX: E87.1 Hypo-osmolality and hyponatremia (principal); G93.41 Metabolic encephalopathy; G45.9 Transient cerebral ischemic attack, unspecified; E55.9 Vitamin D deficiency, unspecified; E78.5 Hyperlipidemia, unspecified; G72.41 Inclusion body myositis [IBM]; H35.30 Unspecified macular degeneration; H40.9 Unspecified glaucoma; I10 Essential (primary) hypertension; I49.3 Ventricular premature depolarization; Z79.899 Other long term (current) drug therapy; R26.9 Unspecified abnormalities of gait and mobility; R29.700 NIHSS score 0; Z28.310 Unvaccinated for COVID-19; M62.50 Muscle wasting and atrophy, not elsewhere classified, unspecified site; R74.01 Elevation of levels of liver transaminase levels; R47.9 Unspecified speech disturbances
CPT/HCPCS: 36415; 70450; 80048; 80053; 80061; 80076; 81003; 83036; 84443; 84484; 85025; 85610; 85730; 93005; 93306; 93880; 96360; 96361; 99285

== ENCOUNTER 2024-01-31 17:54 | Inpatient (IN) | payer MEDICARE ==
--- NOTE | 2024-01-31 18:12 | ED ---
General Adult HPI - General Stated complaint: Flu symptoms Time Seen by Provider: 01/31/24 18:05 Source: RN notes reviewed - History of Present Illness Initial comments: 88-year-old female presented to the ED with a chief complaint of cough. Patient states that she has had nonproductive cough for the past week seeming to worsen since onset. Also does note some associated fatigue and nausea with this. Secondary to nausea patient notes decreased oral intake. Denies chest pain or shortness of breath. Denies fever or chills. No other complaints at this time. - Related Data Home Medications Medication Instructions Recorded Confirmed Alpha Lipoic Acid 200 mg PO DAILY 07/29/19 01/16/24 Calcium Carbonate/Vitamin D3 2 tab PO DAILY 07/29/19 01/16/24 [Calcium 600-Vit D3 10 mcg (400 Iu)] Latanoprost [Xalatan 0.005%] 1 drop BOTH EYES HS 07/29/19 01/16/24 [place]-3 Fatty Acids/Fish Oil [Fish 1 cap PO DAILY 07/29/19 01/16/24 Oil 1,000 mg Softgel] Vit C/E/Zn/Coppr/Lutein/Zeaxan 1 cap PO BID 07/29/19 01/16/24 [Preservision Areds 2 Softgel] levOCARNitine [l-Carnitine] 500 mg PO DAILY 07/29/19 01/16/24 Cholecalciferol (Vitamin D3) 75 mcg PO DAILY 01/16/24 01/16/24 [Vitamin D3 (3000 Iu)] lisinopriL [Zestril] 5 mg PO DAILY 01/16/24 01/16/24 Previous Rx's Medication Instructions Recorded Acetaminophen Tab [Tylenol] 650 mg PO Q6HR PRN tab 01/20/24 Aspirin 81 mg PO DAILY 21 Days #21 tab 01/20/24 Atorvastatin [Lipitor] 40 mg PO HS #30 tab 01/20/24 Clopidogrel [Plavix] 75 mg PO DAILY 30 Days #30 tablet 01/20/24 Allergies Allergy/AdvReac Type Severity Reaction Status Date / Time No Known Allergies Allergy Verified 01/16/24 15:57 Review of Systems ROS Statement: Those systems with pertinent positive or pertinent negative responses have been documented in the HPI. ROS Other: All systems not noted in ROS Statement are negative. Past Medical History Past Medical History: Hypertension Additional Past Medical History / Comment(s): macular degeneration. "Muscle atrophy with unknown diagnosis because patient would not complte muscle biopsy p er neuros reccomendations. " History of Any Multi-Drug Resistant Organisms: None Reported Past Surgical History: Hysterectomy Past Anesthesia/Blood Transfusion Reactions: No Reported Reaction Past Psychological History: No Psychological Hx Reported Past Alcohol Use History: None Reported Past Drug Use History: None Reported General Exam General appearance: alert, in no apparent distress Eye exam: Present: normal appearance Neck exam: Present: normal inspection Respiratory exam: Present: rhonchi, decreased breath sounds Cardiovascular Exam: Present: regular rate GI/Abdominal exam: Present: soft, normal bowel sounds. Absent: distended, tenderness, guarding, rebound, rigid Neurological exam: Present: alert, oriented X3 Skin exam: Present: warm, dry Course Vital Signs 01/31/24 01/31/24 18:08 19:07 Temperature 98.4 F Pulse Rate 117 H Respiratory 18 16 Rate Blood Pressure 160/68 O2 Sat by Pulse 97 Oximetry Medical Decision Making - Medical Decision Making Was pt. sent in by a medical professional or institution (, PA, POLO COACH, urgent care, hospital, or jail...) When possible be specific @ -No Did you speak to anyone other than the patient for history (EMS, parent, family, police, friend...)? What history was obtained from this source @ -No Did you review nursing and triage notes (agree or disagree)? Why? @ -I reviewed and agree with nursing and triage notes Were old charts reviewed (outside hosp., previous admission, EMS record, old EKG, old radiological studies, urgent care reports/EKG's, jail records)? Report findings @ -No old charts were reviewed Differential Diagnosis (chest pain, altered mental status, abdominal pain women, abdominal pain men, vaginal bleeding, weakness, fever, dyspnea, syncope, headache, dizziness, GI bleed, back pain, seizure, CVA, palpatations, mental health, musculoskeletal)? @ -Differential Dyspnea: Coronary syndrome, arrhythmia, tamponade, asthma, COPD, pulmonary embolism, pneumonia, pneumothorax, pulmonary effusion, anaphylaxis, diabetic ketoacidosis, flailed chest, pulmonary contusion, diaphragmatic rupture, anemia, neuromuscular, this is not meant to be an all-inclusive list. EKG interpreted by me (3pts min.). @ -EKG interpreted me showing a sinus rhythm at [address] or T wave changes. PA 170, QRS 90, QT/QTc 371/410. X-rays interpreted by me (1pt min.). @ -Chest x-ray inter by me which revealed no evidence of acute finding. CT interpreted by me (1pt min.). @ -None done U/S interpreted by me (1pt. min.). @ -None done What testing was considered but not performed or refused? (CT, X-rays, U/S, labs)? Why? @ -None What meds were considered but not given or refused? Why? @ -None Did you discuss the management of the patient with other professionals (professionals i.e. , PA, POLO COACH, lab, RT, psych nurse, social worker psychiatric, supervisor cemetery workers, teacher, network security officer, catalytic case operator)? Give summary @ -Case discussed with Dr. Forbes, who accepts admission Case discussed with Dr. Martínez, who advises normal saline at a rate of 75 cc/h, osmolality studies, and recheck of serum sodium in 3 hours. Was smoking cessation discussed for >3mins.? @ -No Was critical care preformed (if so, how long)? @ -No Were there social determinants of health that impacted care today? How? (Homelessness, low income, unemployed, alcoholism, drug addiction, transportation, low edu. Level, literacy, decrease access to med. care, [facility], rehab)? @ -No Was there de-escalation of care discussed even if they declined (Discuss DNR or withdrawal of care, Hospice)? DNR status @ -No What co-morbidities impacted this encounter? (DM, HTN, Smoking, COPD, CAD, Cancer, CVA, ARF, Chemo, Hep., AIDS, mental health diagnosis, sleep apnea, mor bid obesity)? @ -None Was patient admitted / discharged? Hospital course, mention meds given and ro bishop [place], prescriptions, significant lab abnormalities, going to OR and other pertinent info. @ -Admission 88-year-old female presented to the ED with complaints of cough, nausea, decreased oral intake, and generalized weakness for the past week. Laboratory studies reviewed. CBC unremarkable. Chemistry panel is significant for a sodium of 121, potassium 3.8 which is slightly hemolyzed. Patient will receive osmolality studies and gentle IV hydration. Undiagnosed new problem with uncertain prognosis? @ -No Drug Therapy requiring intensive monitoring for toxicity (Heparin, Nitro, Insulin, Cardizem)? @ -No Were any procedures done? @ -No Diagnosis/symptom? @ -Hyponatremia, cough, generalized weakness Acute, or Chronic, or Acute on Chronic? @ -Acute Uncomplicated (without systemic symptoms) or Complicated (systemic symptoms)? @ -Uncomplicated Side effects of treatment? @ -No Exacerbation, Progression, or Severe Exacerbation? @ -No Poses a threat to life or bodily function? How? (Chest pain, USA, NH, pneumonia, PE, COPD, DKA, ARF, appy, cholecystitis, CVA, Diverticulitis, Homicidal, Suicidal, threat to staff... and all critical care pts) @ -Possibly, however unlikely at this time - Lab Data Result diagrams: 01/31/24 18:24 01/31/24 18:24 Lab Results 01/31/24 01/31/24 Range/Units 18:24 18:24 WBC 8.1 (3.8-10.6) k/uL RBC 4.25 (3.80-5.40) m/uL Hgb 12.7 (11.4-16.0) gm/dL Hct 38.7 (34.0-46.0) % MCV 91.0 (80.0-100.0) fL MCH 30.0 (25.0-35.0) pg MCHC 32.9 (31.0-37.0) g/dL RDW 12.9 (11.5-15.5) % Plt Count 220 (150-450) k/uL MPV 7.1 Neutrophils % 80 % Lymphocytes % 12 % Monocytes % 6 % Eosinophils % 0 % Basophils % 0 % Neutrophils # 6.5 (1.3-7.7) k/uL Lymphocytes # 1.0 (1.0-4.8) k/uL Monocytes # 0.5 (0-1.0) k/uL Eosinophils # 0.0 (0-0.7) k/uL Basophils # 0.0 (0-0.2) k/uL Sodium 121 L (137-145) mmol/L Potassium 3.8 (3.5-5.1) mmol/L Chloride 93 L (98-107) mmol/L Carbon Dioxide 18 L (22-30) mmol/L Anion Gap 10 mmol/L BUN 9 (7-17) mg/dL Creatinine 0.32 L (0.52-1.04) mg/dL Est GFR (CKD-EPI)AfAm >90 (>60 ml/min/1.73 sqM) Est GFR (CKD-EPI)NonAf >90 (>60 ml/min/1.73 sqM) Glucose 145 H (74-99) mg/dL Calcium 8.2 L (8.4-10.2) mg/dL Total Bilirubin 0.5 (0.2-1.3) mg/dL AST 53 H (14-36) U/L ALT 41 H (4-34) U/L Alkaline Phosphatase 44 (38-126) U/L Total Protein 6.1 L (6.3-8.2) g/dL Albumin 3.4 L (3.5-5.0) g/dL Disposition Clinical Impression: Hyponatremia, Generalized weakness Disposition: ADMITTED IP TO THIS HOSP Condition: Good Referrals: Glenny Cancino DO [Primary Care Provider] - 1-2 days Time of Disposition: 20:45
--- NOTE | 2024-01-31 18:38 | XR ---
EXAMINATION TYPE: XR chest 2V DATE OF EXAM: 01/31/2024 COMPARISON: NONE HISTORY: Shortness of breath TECHNIQUE: Frontal and lateral views of the chest are obtained. FINDINGS: Scattered senescent parenchymal changes noted. Hyperinflation compatible with COPD. No evidence for infiltrate. No evidence for atelectasis. Heart size is stable. Mediastinal structures are stable and grossly unremarkable. No evidence for hilar prominence. Degenerative changes dorsal spine. IMPRESSION: 1. No evidence for acute pulmonary disease.
[2024-01-31] MEDS: SODIUM CHLORIDE 0.9% 500 ML BAG IV STA (18:47)
[2024-01-31] MEDS: ONDANSETRON 4 MG/2 ML VIAL IVP STA (18:47)
[2024-01-31] MEDS: KETOROLAC 15 MG/ML 1 ML VIAL IVP STA (18:47)
[2024-01-31 19:07] LABS: ALT 41 U/L (4-34); African American GFR (CKD) >90 (>60 ml/min/1.73 sqM); Albumin 3.4 g/dL (3.5-5.0); Anion Gap 10 mmol/L; Blood Urea Nitrogen 9 mg/dL (7-17); Calcium 8.2 mg/dL (8.4-10.2); Carbon Dioxide 18 mmol/L (22-30); Chloride 93 mmol/L (98-107); Glucose 145 mg/dL (74-99); Non-African American GFR(CKD) >90 (>60 ml/min/1.73 sqM); Sodium 121 mmol/L (137-145); Total Bilirubin 0.5 mg/dL (0.2-1.3); Total Protein 6.1 g/dL (6.3-8.2)
[2024-01-31 19:17] LABS: Basophils % (A) 0 %; Eosinophils % (A) 0 %; HCT 38.7 % (34.0-46.0); HGB 12.7 gm/dL (11.4-16.0); Lymphocytes % (A) 12 %; MCHC 32.9 g/dL (31.0-37.0); Mean Platelet Volume 7.1; Monocytes # (A) 0.5 k/uL (0-1.0); Monocytes % (A) 6 %; Neutrophils # (A) 6.5 k/uL (1.3-7.7); Neutrophils % (A) 80 %; Platelet Count 220 k/uL (150-450); RBC 4.25 m/uL (3.80-5.40); RDW 12.9 % (11.5-15.5); WBC 8.1 k/uL (3.8-10.6)
[2024-01-31 19:38] LABS: AST 53 U/L (14-36); Alkaline Phosphatase 44 U/L (38-126); Potassium 3.8 mmol/L (3.5-5.1)
[2024-01-31] MEDS ORDERED: ACETAMINOPHEN TAB 325 MG TAB PO PRN (21:14)
[2024-01-31] MEDS ORDERED: ONDANSETRON 4 MG/2 ML VIAL IVP PRN (21:32)
[2024-01-31] MEDS ORDERED: NALOXONE 0.4 MG/ML 1 ML VIAL IV PRN (21:32)
[2024-01-31] MEDS: SODIUM CHLORIDE 0.9% 1,000 ML IV STA (21:53)
[2024-01-31 21:59] LABS: Appearance,Urine Clear (Clear); Bacteria,Urine Rare /hpf; Bilirubin,Urine Negative (Negative); Blood,Urine Small (Negative); Color,Urine Yellow; Glucose,Urine (UA) Negative (Negative); Hyaline Casts,Urine 1 /lpf (0-2); Ketones,Urine 3+ (Negative); Leukocyte Esterase,Urine Large (Negative); Mucus,Urine Rare /hpf; Nitrite,Urine Negative (Negative); Protein,Urine 1+ (Negative); RBC,Urine 10 /hpf (0-5); Squamous Epithelial Cell,Urine 1 /hpf (0-4); Urobilinogen,Urine <2.0 mg/dL (<2.0); WBC,Urine 11 /hpf (0-5)
[2024-02-01] MEDS: BENZONATATE 100 MG CAP PO STA (00:10)
[2024-02-01 00:40] LABS: Basophils # (A) 0.1 k/uL (0-0.2); Basophils % (A) 1 %; Eosinophils # (A) 0.1 k/uL (0-0.7); Eosinophils % (A) 1 %; HCT 36.8 % (34.0-46.0); HGB 12.5 gm/dL (11.4-16.0); Lymphocytes # (A) 1.4 k/uL (1.0-4.8); Lymphocytes % (A) 19 %; MCHC 33.9 g/dL (31.0-37.0); MCV 91.3 fL (80.0-100.0); Mean Platelet Volume 6.8; Monocytes # (A) 0.5 k/uL (0-1.0); Monocytes % (A) 7 %; Neutrophils # (A) 5.3 k/uL (1.3-7.7); Neutrophils % (A) 71 %; Platelet Count 215 k/uL (150-450); RBC 4.03 m/uL (3.80-5.40); WBC 7.4 k/uL (3.8-10.6)
[2024-02-01 00:47] LABS: African American GFR (CKD) >90 (>60 ml/min/1.73 sqM); Anion Gap 8 mmol/L; Blood Urea Nitrogen 10 mg/dL (7-17); Calcium 8.1 mg/dL (8.4-10.2); Carbon Dioxide 20 mmol/L (22-30); Chloride 94 mmol/L (98-107); Glucose 117 mg/dL (74-99); Non-African American GFR(CKD) >90 (>60 ml/min/1.73 sqM); Potassium 3.6 mmol/L (3.5-5.1); Sodium 122 mmol/L (137-145)
[2024-02-01 06:38] LABS: African American GFR (CKD) >90 (>60 ml/min/1.73 sqM); Anion Gap 5 mmol/L; Blood Urea Nitrogen 9 mg/dL (7-17); Calcium 7.9 mg/dL (8.4-10.2); Carbon Dioxide 23 mmol/L (22-30); Chloride 93 mmol/L (98-107); Glucose 75 mg/dL (74-99); Non-African American GFR(CKD) >90 (>60 ml/min/1.73 sqM); Sodium 121 mmol/L (137-145)
[2024-02-01 06:44] LABS: Potassium 4.5 mmol/L (3.5-5.1)
[2024-02-01] MEDS: ASPIRIN 81 MG PO SCH (08:27)
[2024-02-01] MEDS: CHOLECALCIFEROL 25 MCG (1000 IU) TABLET PO SCH (08:27)
[2024-02-01] MEDS: lisinopriL 5 MG TAB PO SCH (08:27)
[2024-02-01] MEDS: CLOPIDOGREL 75 MG TAB PO SCH (08:27)
[2024-02-01] MEDS: CALCIUM CARB-VIT D 500 MG-5 MCG TAB PO SCH (08:28)
[2024-02-01] MEDS ORDERED: LEVOCARNITINE 500 MG PO SCH (09:00)
[2024-02-01] MEDS: levOCARNitine (WITH SUGAR) 100 MG/ML BOTTLE PO SCH (09:06)
[2024-02-01 09:23] LABS: Basophils % (A) 1 %; Eosinophils # (A) 0.1 k/uL (0-0.7); Eosinophils % (A) 2 %; HCT 35.4 % (34.0-46.0); HGB 11.6 gm/dL (11.4-16.0); Lymphocytes # (A) 1.2 k/uL (1.0-4.8); Lymphocytes % (A) 21 %; MCH 30.3 pg (25.0-35.0); MCHC 32.8 g/dL (31.0-37.0); MCV 92.4 fL (80.0-100.0); Mean Platelet Volume 7.9; Monocytes # (A) 0.5 k/uL (0-1.0); Monocytes % (A) 8 %; Neutrophils % (A) 66 %; Platelet Count 187 k/uL (150-450); RBC 3.83 m/uL (3.80-5.40); RDW 13.2 % (11.5-15.5)
--- NOTE | 2024-02-01 13:19 | P.NPCON ---
History of Present Illness - Reason for Consult hyponatremia - History of Present Illness patient is an 88-year-old female who was admitted to the hospital with complaints of cough and increased weakness. Patient has had the cough for about 3-4 days. She has not been eating much for the past few days. Patient denies any diarrhea nausea or vomiting. She is not maintained on any diuretics. Serum sodium was 121 on admission and has not improved much with IV saline. Patient reports her sodium was low about 2 weeks ago. Labs show that it was 126 and improved to 133 with IV saline. chest x-ray does not show any significant abnormalities. Blood pressure has not been low. Review of Systems as per HPI Past Medical History Past Medical History: Hypertension Additional Past Medical History / Comment(s): macular degeneration. "Muscle atrophy with unknown diagnosis because patient would not complte muscle biopsy per neuros reccomendations. " History of Any Multi-Drug Resistant Organisms: None Reported Past Surgical History: Hysterectomy Additional Past Surgical History / Comment(s): carpal tunnel Past Anesthesia/Blood Transfusion Reactions: No Reported Reaction Past Psychological History: No Psychological Hx Reported Smoking Status: Never smoker Past Alcohol Use History: None Reported Past Drug Use History: None Reported Medications and Allergies Home Medications Medication Instructions Recorded Confirmed Type Alpha Lipoic Acid 200 mg PO DAILY 07/29/19 02/01/24 History Calcium Carbonate/Vitamin D3 2 tab PO DAILY 07/29/19 02/01/24 History [Calcium 600-Vit D3 10 mcg (400 Iu)] Latanoprost [Xalatan 0.005%] 1 drop BOTH EYES HS 07/29/19 02/01/24 History [place]-3 Fatty Acids/Fish Oil [Fish 1 cap PO DAILY 07/29/19 02/01/24 History Oil 1,000 mg Softgel] Vit C/E/Zn/Coppr/Lutein/Zeaxan 1 cap PO BID 07/29/19 02/01/24 History [Preservision Areds 2 Softgel] levOCARNitine [l-Carnitine] 500 mg PO DAILY 07/29/19 02/01/24 History Cholecalciferol (Vitamin D3) 75 mcg PO DAILY 01/16/24 02/01/24 History [Vitamin D3 (3000 Iu)] lisinopriL [Zestril] 5 mg PO DAILY 01/16/24 02/01/24 History Acetaminophen Tab [Tylenol] 650 mg PO Q6HR PRN tab 01/20/24 02/01/24 Rx Aspirin 81 mg PO DAILY 21 Days #21 tab 01/20/24 02/01/24 Rx Atorvastatin [Lipitor] 40 mg PO HS #30 tab 01/20/24 02/01/24 Rx Clopidogrel [Plavix] 75 mg PO DAILY 30 Days #30 tablet 01/20/24 02/01/24 Rx Allergies Allergy/AdvReac Type Severity Reaction Status Date / Time No Known Allergies Allergy Verified 02/01/24 09:56 Physical Exam Vitals: Vital Signs Temp Pulse Resp BP Pulse Ox 02/01/24 07:28 98.4 F 66 18 139/68 94 L 02/01/24 04:00 84 18 128/67 94 L 01/31/24 21:33 98.2 F 90 20 144/66 93 L 01/31/24 19:07 16 01/31/24 18:08 98.4 F 117 H 18 160/68 97 Intake and Output 01/31/24 02/01/24 02/01/24 22:59 06:59 14:59 Other: Weight 45.813 kg 45.813 kg patient is awake, comfortable, no acute distress. Alert oriented 3 Examination of the heart S1 and S2 Examination of the lungs bilateral breath sounds are heard Abdomen is soft nontender Examination of lower extremity shows no evidence of edema PIPELINE INTEGRITY ENGINEER exam grossly intact Results - Lab Results Most recent lab results Calcium 7.9 mg/dL (8.4-10.2) L 02/01/24 05:40 02/01/24 05:40 02/01/24 05:40 Assessment and Plan Assessment: 1. Hyponatremia, patient appears euvolemic. Serum sodium has not improved with IV saline administration this time. She did admit to decreased oral intake for the past few days and therefore she likely has low urinary solute. Urine osmolality and urine sodium is pending. 2. Weakness possibly related to electrolyte imbalance. 3. History of hypertension maintained on lisinopril. Plan: check random cortisol level. Await urine osmolality and serum urine sodium. Maintained fluid restriction. sodium chloride tab 1 Repeat sodium this evening Patient will likely need Samsca. Currently waiting urine osmolality. Next Thank you for the consultation. We will continue to follow the patient with you during her hospitalization.
--- NOTE | 2024-02-01 13:58 | P.HPIM ---
History of Present Illness H&P Date: 01/31/24 Chief Complaint: Generalized weakness 88-year-old female, history of hypertension, vitamin D deficiency, hyperlipidemia presented to the ED with a chief complaint of cough. Patient states that she has had nonproductive cough for the past week seeming to worsen since onset. Patient does report a few episodes of fever and chills but it has since resolved; patient also does note some associated fatigue and nausea with this. Secondary to nausea patient notes decreased oral intake. Denies chest pain or shortness of breath. Denies fever or chills. No other complaints at this time. Patient reports her sodium was low about 2 weeks ago. Labs show that it was 126 and improved to 133 with IV saline. Laboratory studies reviewed. CBC unremarkable. Chemistry panel is significant for a sodium of 121, potassium 3.8 which is slightly hemolyzed. Patient will receive osmolality studies and gentle IV hydration. -Chest x-ray revealed no evidence of acute finding. -EKG interpreted me showing a sinus rhythm at [address] or T wave changes. [place] 170, QRS 90, QT/QTc 371/410. Review of Systems REVIEW OF SYSTEMS: CONSTITUTIONAL: No fever, no malaise, no fatigue. HEENT: No recent visual problems or hearing problems. Denied any sore throat. CARDIOVASCULAR: No chest pain, orthopnea, PND, no palpitations, no syncope. PULMONARY: No shortness of breath, no cough, no hemoptysis. GASTROINTESTINAL: No diarrhea, no nausea, no vomiting, no abdominal pain. NEUROLOGICAL: No headaches, no weakness, no numbness. HEMATOLOGICAL: Denies any bleeding or petechiae. GENITOURINARY: Denies any burning micturition, frequency, or urgency. MUSCULOSKELETAL/RHEUMATOLOGICAL: Denies any joint pain, swelling, or any muscle pain. ENDOCRINE: Denies any polyuria or polydipsia. The rest of the 14-point review of systems is negative. Past Medical History Past Medical History: Hypertension Additional Past Medical History / Comment(s): macular degeneration. "Muscle atrophy with unknown diagnosis because patient would not complte muscle biopsy per neuros reccomendations. " History of Any Multi-Drug Resistant Organisms: None Reported Past Surgical History: Hysterectomy Past Anesthesia/Blood Transfusion Reactions: No Reported Reaction Past Psychological History: No Psychological Hx Reported Past Alcohol Use History: None Reported Past Drug Use History: None Reported Medications and Allergies Home Medications Medication Instructions Recorded Confirmed Type Alpha Lipoic Acid 200 mg PO DAILY 07/29/19 02/01/24 History Calcium Carbonate/Vitamin D3 2 tab PO DAILY 07/29/19 02/01/24 History [Calcium 600-Vit D3 10 mcg (400 Iu)] Latanoprost [Xalatan 0.005%] 1 drop BOTH EYES HS 07/29/19 02/01/24 History [place]-3 Fatty Acids/Fish Oil [Fish 1 cap PO DAILY 07/29/19 02/01/24 History Oil 1,000 mg Softgel] Vit C/E/Zn/Coppr/Lutein/Zeaxan 1 cap PO BID 07/29/19 02/01/24 History [Preservision Areds 2 Softgel] levOCARNitine [l-Carnitine] 500 mg PO DAILY 07/29/19 02/01/24 History Cholecalciferol (Vitamin D3) 75 mcg PO DAILY 01/16/24 02/01/24 History [Vitamin D3 (3000 Iu)] lisinopriL [Zestril] 5 mg PO DAILY 01/16/24 02/01/24 History Acetaminophen Tab [Tylenol] 650 mg PO Q6HR PRN tab 01/20/24 02/01/24 Rx Aspirin 81 mg PO DAILY 21 Days #21 tab 01/20/24 02/01/24 Rx Atorvastatin [Lipitor] 40 mg PO HS #30 tab 01/20/24 02/01/24 Rx Clopidogrel [Plavix] 75 mg PO DAILY 30 Days #30 tablet 01/20/24 02/01/24 Rx Allergies Allergy/AdvReac Type Severity Reaction Status Date / Time No Known Allergies Allergy Verified 02/01/24 09:56 Physical Exam Vitals: Vital Signs Temp Pulse Resp BP Pulse Ox 01/31/24 19:07 16 01/31/24 18:08 98.4 F 117 H 18 160/68 97 Intake and Output 01/31/24 01/31/24 01/31/24 06:59 14:59 22:59 Other: Weight 45.813 kg General appearance: alert, in no apparent distress Eye exam: Present: normal appearance Neck exam: Present: normal inspection Respiratory exam: Present: rhonchi, decreased breath sounds Cardiovascular Exam: Present: regular rate GI/Abdominal exam: Present: soft, normal bowel sounds. Absent: distended, tenderness, guarding, rebound, rigid Neurological exam: Present: alert, oriented X3 Skin exam: Present: warm, dry Results CBC & Chem 7: 02/01/24 05:40 02/01/24 05:40 Labs: Abnormal Lab Results - Last 24 Hours (Table) 01/31/24 Range/Units 18:24 Sodium 121 L (137-145) mmol/L Chloride 93 L (98-107) mmol/L Carbon Dioxide 18 L (22-30) mmol/L Creatinine 0.32 L (0.52-1.04) mg/dL Glucose 145 H (74-99) mg/dL Calcium 8.2 L (8.4-10.2) mg/dL AST 53 H (14-36) U/L ALT 41 H (4-34) U/L Total Protein 6.1 L (6.3-8.2) g/dL Albumin 3.4 L (3.5-5.0) g/dL Assessment and Plan Assessment: 1. Mild hyponatremia; likely associated to poor oral intake --Patient has been placed on IV fluids in form of normal saline at a rate of 100 cc an hour; will monitor strict LA's, daily weights; monitor electrolytes -- We will order urine and serum osmolality along with urine sodium levels 2. Generalized weakness/debility; probably secondary to electrolyte imbalance; PT/OT consulted 3. Acute purulent bronchitis; we will start patient on oral doxycycline 100 mg twice daily for 10 days -- Monitor CBC, CRP and procalcitonin 4. Hypertension; we will continue with home dose of lisinopril 5 mg daily 5. Vitamin D deficiency; vitamin D 75 mcg daily 6. Hyperlipidemia; Lipitor 40 mg p.o. nightly DVT prophylaxis; SCDs/heparin CODE STATUS; DNR
[2024-02-01] MEDS: SODIUM CHLORIDE TAB 1 GM TAB PO STA (14:00)
[2024-02-01] MEDS: BENZONATATE 100 MG CAP PO PRN (17:45)
[2024-02-01] MEDS: DOXYCYCLINE 100 MG CAP PO SCH (20:44)
[2024-02-01] MEDS: LATANOPROST 0.005% OPHTH DROPS 2.5 ML BTL BOTH EYES SCH (20:45)
[2024-02-01] MEDS: ATORVASTATIN 40 MG TAB PO SCH (20:45)
[2024-02-02 08:50] LABS: Blood Urea Nitrogen 5.1 mg/dL (9.0-27.0); Calcium 8.1 mg/dL (8.7-10.3); Carbon Dioxide 24.9 mmol/L (21.6-31.8); Chloride 96 mmol/L (96-109); Glucose 128 mg/dL (70-110); Potassium 3.9 mmol/L (3.5-5.5); Sodium 131 mmol/L (135-145)
--- NOTE | 2024-02-02 12:31 | P.PN ---
Subjective patient is seen for follow-up for hyponatremia. Serum sodium improved with one dose of sodium chloride And fluid restriction. sodium is 131 today. urine osmolality at 560. Urine sodium was not done. Next No significant complaints today. Objective - Vital Signs Vital signs: Vital Signs Temp 98.0 F 02/02/24 08:00 Pulse 97 02/02/24 08:00 Resp 21 02/02/24 08:00 BP 183/77 02/02/24 08:00 Pulse Ox 95 02/02/24 08:00 FiO2 Intake & Output 02/01/24 02/02/24 02/02/24 18:59 06:59 18:59 Intake Total 800 Balance 800 Intake: Oral 800 Other: # Voids 0 - Exam patient is awake, comfortable, no acute distress. Alert oriented 3 Examination of the heart S1 and S2 Examination of the lungs bilateral breath sounds are heard Abdomen is soft nontender Examination of lower extremity shows no evidence of edema [employer] exam grossly intact - Labs CBC & Chem 7: 02/01/24 05:40 02/02/24 05:07 Labs: Abnormal Lab Results - Last 24 Hours (Table) 02/01/24 02/01/24 02/02/24 Range/Units 00:24 18:00 05:07 Sodium 127 L 131 L (137-145) mmol/L BUN 5.1 L (9.0-27.0) mg/dL Creatinine 0.3 L (0.6-1.5) mg/dL Glucose 128 H (70-110) mg/dL Osmolality 253 L (275-295) mOsm/kg Calcium 8.1 L (8.7-10.3) mg/dL Assessment and Plan Assessment: 1. Hyponatremia, patient appears euvolemic. possible SIADH. Sodium did not improve with IV saline but improved with fluid restriction and one dose of sodium chloride. Urine osmolality at 560. Urine sodium was not done. 2. Weakness possibly related to electrolyte imbalance. 3. History of hypertension maintained on lisinopril. Plan: continue with fluid restriction. Repeat sodium this evening. Hold any further sodium chloride tabs due to hypertension. Patient is encouraged to increase oral intake particularly protein.
--- NOTE | 2024-02-02 13:04 | P.PN ---
Subjective 88-year-old female, history of hypertension, vitamin D deficiency, hyperlipidemia presented to the ED with a chief complaint of cough. Patient states that she has had nonproductive cough for the past week seeming to worsen since onset. Patient does report a few episodes of fever and chills but it has since resolved; patient also does note some associated fatigue and nausea with this. Secondary to nausea patient notes decreased oral intake. Denies chest pain or shortness of breath. Denies fever or chills. No other complaints at this time. Patient reports her sodium was low about 2 weeks ago. Labs show that it was 126 and improved to 133 with IV saline. Laboratory studies reviewed. CBC unremarkable. Chemistry panel is significant for a sodium of 121, potassium 3.8 which is slightly hemolyzed. Patient will receive osmolality studies and gentle IV hydration. -Chest x-ray revealed no evidence of acute finding. -EKG interpreted me showing a sinus rhythm at [address] or T wave changes. KS 170, QRS 90, QT/QTc 371/410. 02/01/2024 Patient is seen and evaluated resting comfortably in bed; reports marked improvement in strength Vital signs are reviewed and are stable Lab work is reviewed and reveals sodium level remains low at 122 this morning from 121 yesterday; patient is currently on IV fluids in form of normal saline --Nephrology has been consulted recommending to check random cortisol level, urine and serum osmolality with serum and urine and urine sodium level -- Patient is recommended to continue with fluid restriction; patient has received 1 tablet of sodium chloride -- Pending osmolality results on rest of blood work, patient [facility] a [facility] [place] Objective - Vital Signs Vital signs: Vital Signs Temp 98.4 F 02/01/24 07:28 Pulse 66 02/01/24 07:28 Resp 18 02/01/24 07:28 BP 139/68 02/01/24 07:28 Pulse Ox 94 L 02/01/24 07:28 FiO2 Intake & Output 01/31/24 02/01/24 02/01/24 18:59 06:59 18:59 Weight 45.813 kg 45.813 kg - Exam - Constitutional General appearance: Present: average body habitus, cooperative, no acute dist ress - EENT Eyes: Present: anicteric sclerae, EOMI, PERRLA, normal appearance ENT: Present: hearing grossly normal, normal oropharynx Ears: bilateral: normal - Neck Neck: Present: normal ROM. Absent: lymphadenopathy, rigidity, thyromegaly Carotids: negative: bruit present Thyroid: bilateral: normal size, negative: enlarged, nodule - Respiratory Respiratory: bilateral: CTA, negative: rales, rhonchi, wheezing - Cardiovascular Rhythm: regular Heart sounds: normal: S1, S2 Abnormal Heart Sounds: Absent: systolic murmur, diastolic murmur - Gastrointestinal General gastrointestinal: Present: normal bowel sounds, soft. Absent: distended, organomegaly, tenderness - Genitourinary Genitourinary Comment(s): deferred - Integumentary Integumentary: Present: normal turgor. Absent: jaundiced, rash, ulcer - Neurologic Neurologic: Present: CNII-XII intact. Absent: focal deficits - Musculoskeletal Musculoskeletal: Present: gait normal, strength equal bilaterally - Psychiatric Psychiatric: Present: A&O x's 3, appropriate affect, intact judgment & insight - Labs CBC & Chem 7: 02/01/24 05:40 02/02/24 05:07 Labs: Abnormal Lab Results - Last 24 Hours (Table) 01/31/24 01/31/24 02/01/24 Range/Units 18:24 21:20 00:24 Sodium 121 L 122 L (137-145) mmol/L Chloride 93 L 94 L (98-107) mmol/L Carbon Dioxide 18 L 20 L (22-30) mmol/L Creatinine 0.32 L 0.32 L (0.52-1.04) mg/dL Glucose 145 H 117 H (74-99) mg/dL Calcium 8.2 L 8.1 L (8.4-10.2) mg/dL AST 53 H (14-36) U/L ALT 41 H (4-34) U/L Total Protein 6.1 L (6.3-8.2) g/dL Albumin 3.4 L (3.5-5.0) g/dL Urine Protein 1+ H (Negative) Urine Ketones 3+ H (Negative) Urine Blood Small H (Negative) Ur Leukocyte Esterase Large H (Negative) Urine RBC 10 H (0-5) /hpf Urine WBC 11 H (0-5) /hpf Urine Bacteria Rare H (None) /hpf Urine Mucus Rare H (None) /hpf 06/23/24 Range/Units 05:40 Sodium 121 L (137-145) mmol/L Chloride 93 L (98-107) mmol/L Carbon Dioxide (22-30) mmol/L Creatinine 0.33 L (0.52-1.04) mg/dL Glucose (74-99) mg/dL Calcium 7.9 L (8.4-10.2) mg/dL AST (14-36) U/L ALT (4-34) U/L Total Protein (6.3-8.2) g/dL Albumin (3.5-5.0) g/dL Urine Protein (Negative) Urine Ketones (Negative) Urine Blood (Negative) Ur Leukocyte Esterase (Negative) Urine RBC (0-5) /hpf Urine WBC (0-5) /hpf Urine Bacteria (None) /hpf Urine Mucus (None) /hpf Assessment and Plan Assessment: 1. Mild hyponatremia; likely associated to poor oral intake --Patient has been placed on IV fluids in form of normal saline at a rate of 100 cc an hour; will monitor strict LA's, daily weights; monitor electrolytes -- We will order urine and serum osmolality along with urine sodium levels 2. Generalized weakness/debility; probably secondary to electrolyte imbalance; PT/OT consulted 3. Acute purulent bronchitis; we will start patient on oral doxycycline 100 mg twice daily for 10 days -- Monitor CBC, CRP and procalcitonin 4. Hypertension; we will continue with home dose of lisinopril 5 mg daily 5. Vitamin D deficiency; vitamin D 75 mcg daily 6. Hyperlipidemia; Lipitor 40 mg p.o. nightly DVT prophylaxis; SCDs/heparin CODE STATUS; DNR
--- NOTE | 2024-02-02 13:51 | XR ---
EXAMINATION TYPE: XR chest 1V DATE OF EXAM: 02/02/2024 COMPARISON: 01/31/2024 HISTORY: 88 year-old female shortness of breath TECHNIQUE: Single frontal view of the chest is obtained. FINDINGS: Heart normal size. Hyperinflation. Interstitial density endobronchial cuffing is noted. No consolidation or pleural effusion. Loss of the subacromial space right shoulder suggesting chronic f ull-thickness rotator cuff tear. IMPRESSION: COPD. Prominent peribronchial densities could reflect superimposed acute bronchitis. No f ocal infiltrate seen.
[2024-02-02] MEDS: SODIUM CHLORIDE TAB 1 GM TAB PO STA (20:50)
[2024-02-02] MEDS: guaiFENesin-DM 100-10MG/5ML 10 ML CUP PO PRN (20:50)
--- NOTE | 2024-02-02 21:05 | P.PN ---
Subjective 88-year-old female, history of hypertension, vitamin D deficiency, hyperlipidemia presented to the ED with a chief complaint of cough. Patient states that she has had nonproductive cough for the past week seeming to worsen since onset. Patient does report a few episodes of fever and chills but it has since resolved; patient also does note some associated fatigue and nausea with this. Secondary to nausea patient notes decreased oral intake. Denies chest pain or shortness of breath. Denies fever or chills. No other complaints at this time. Patient reports her sodium was low about 2 weeks ago. Labs show that it was 126 and improved to 133 with IV saline. Laboratory studies reviewed. CBC unremarkable. Chemistry panel is significant for a sodium of 121, potassium 3.8 which is slightly hemolyzed. Patient will receive osmolality studies and gentle IV hydration. -Chest x-ray revealed no evidence of acute finding. -EKG interpreted me showing a sinus rhythm at [address] or T wave changes. [place] 170, QRS 90, QT/QTc 371/410. 02/01/2024 Patient is seen and evaluated resting comfortably in bed; reports marked improvement in strength Vital signs are reviewed and are stable Lab work is reviewed and reveals sodium level remains low at 122 this morning from 121 yesterday; patient is currently on IV fluids in form of normal saline --Nephrology has been consulted recommending to check random cortisol level, urine and serum osmolality with serum and urine and urine sodium level -- Patient is recommended to continue with fluid restriction; patient has received 1 tablet of sodium chloride -- Pending osmolality results on rest of blood work, patient might be a candidate [facility] [place] 02/02/2024 patient is sitting up at the chair with her good appetite and eating well She is mildly tachypneic, no significant dyspnea no significant chest pain, but she has significant repeated coughing. Repeat chest x-ray showing COPD changes and some bronchitis. Patient already on doxycycline We will add Symbicort and Robitussin Patient also presents with hyponatremia which is improved up to 131 now, nephro roger is following the patient closely I discussed the case with her [id number] over the phone and all questions were answered Objective - Vital Signs Vital signs: Vital Signs Temp 98.0 F 02/02/24 08:00 Pulse 97 02/02/24 08:00 Resp 21 02/02/24 08:00 BP 183/77 02/02/24 08:00 Pulse Ox 95 02/02/24 08:00 FiO2 Intake & Output 02/01/24 02/02/24 02/02/24 18:59 06:59 18:59 Intake Total 800 Balance 800 Intake: Oral 800 Other: # Voids 0 - Exam GENERAL: The patient is alert and oriented x3, not in any acute distress. Well developed, well nourished. HEENT: Pupils are round and equally reacting to light. EOMI. No scleral icterus. No conjunctival pallor. Normocephalic, atraumatic. No pharyngeal erythema. No thyromegaly. CARDIOVASCULAR: S1 and S2 present. No murmurs, rubs, or gallops. PULMONARY: Chest is clear to auscultation, no wheezing , no crackles. ABDOMEN: Soft, nontender, nondistended, normoactive bowel sounds. No palpable organomegaly. MUSCULOSKELETAL: No joint swelling or deformity. EXTREMITIES: No cyanosis, clubbing, or pedal edema. NEUROLOGICAL: Gross neurological examination did not reveal any focal deficits. SKIN: No rashes. no petechiae. - Labs CBC & Chem 7: 02/01/24 05:40 02/02/24 17:39 Labs: Abnormal Lab Results - Last 24 Hours (Table) 02/01/24 02/01/24 02/02/24 Range/Units 00:24 18:00 05:07 Sodium 127 L 131 L (137-145) mmol/L BUN 5.1 L (9.0-27.0) mg/dL Creatinine 0.3 L (0.6-1.5) mg/dL Glucose 128 H (70-110) mg/dL Osmolality 253 L (275-295) mOsm/kg Calcium 8.1 L (8.7-10.3) mg/dL Assessment and Plan Assessment: bronchitis on the top of COPD with mild COPD exacerbation Hyponatremia Mild metabolic encephalopathy Generalized weakness Hypertension Hyperlipidemia Vitamin D deficiency Plan: Continue with doxycycline Add Symbicort Robitussin DM Nephrology team are following for hyponatremia as they are the specialist we will defer the management to them GI prophylaxis: Pepcid DVT prophylaxis; SCDs/heparin CODE STATUS; DNR PT/OT Prognosis is guarded
[2024-02-02] MEDS: guaiFENesin-DM 100-10MG/5ML 10 ML CUP PO SCH (21:11)
[2024-02-02] MEDS: SYMBICORT 160-4.5 MCG INHALER INHALATION SCH (21:34)
[2024-02-03] MEDS ORDERED: IPRATROPIUM-ALBUTEROL 3 ML NEB INHALATION PRN (06:09)
--- NOTE | 2024-02-03 06:24 | P.CNPUL ---
History of Present Illness Consult date: 02/03/24 Reason for consult: dyspnea, cough, COPD Chief complaint: shortness of breath History of present illness: patient is a 88-year-old female presented emergency department with cough nonproductive for last 1 week progressively getting worse in addition associated with fever and chills, symptoms progressed decided to come into [employer] further evaluation, on specific questioning denies any chest pain sputum production hemoptysis, denies any weight loss appetite has been good however has been feeling weak her lab workup included some hyponatremia with sodium 126 however improved with sertraline to 133, chest x-ray COPD-like changes Review of Systems All systems: negative Past Medical History Past Medical History: Hypertension Additional Past Medical History / Comment(s): macular degeneration. "Muscle atrophy with unknown diagnosis because patient would not complte muscle biopsy per neuros reccomendations. " History of Any Multi-Drug Resistant Organisms: None Reported Past Surgical History: Hysterectomy Additional Past Surgical History / Comment(s): carpal tunnel Past Anesthesia/Blood Transfusion Reactions: No Reported Reaction Past Psychological History: No Psychological Hx Reported Past Alcohol Use History: None Reported Past Drug Use History: None Reported Medications and Allergies Home Medications Medication Instructions Recorded Confirmed Type Alpha Lipoic Acid 200 mg PO DAILY 07/29/19 02/01/24 History Calcium Carbonate/Vitamin D3 2 tab PO DAILY 07/29/19 02/01/24 History [Calcium 600-Vit D3 10 mcg (400 Iu)] Latanoprost [Xalatan 0.005%] 1 drop BOTH EYES HS 07/29/19 02/01/24 History [place]-3 Fatty Acids/Fish Oil [Fish 1 cap PO DAILY 07/29/19 02/01/24 History Oil 1,000 mg Softgel] Vit C/E/Zn/Coppr/Lutein/Zeaxan 1 cap PO BID 07/29/19 02/01/24 History [Preservision Areds 2 Softgel] levOCARNitine [l-Carnitine] 500 mg PO DAILY 07/29/19 02/01/24 History Cholecalciferol (Vitamin D3) 75 mcg PO DAILY 01/16/24 02/01/24 History [Vitamin D3 (3000 Iu)] lisinopriL [Zestril] 5 mg PO DAILY 01/16/24 02/01/24 History Acetaminophen Tab [Tylenol] 650 mg PO Q6HR PRN tab 01/20/24 02/01/24 Rx Aspirin 81 mg PO DAILY 21 Days #21 tab 01/20/24 02/01/24 Rx Atorvastatin [Lipitor] 40 mg PO HS #30 tab 01/20/24 02/01/24 Rx Clopidogrel [Plavix] 75 mg PO DAILY 30 Days #30 tablet 01/20/24 02/01/24 Rx Allergies Allergy/AdvReac Type Severity Reaction Status Date / Time No Known Allergies Allergy Verified 02/01/24 09:56 Physical Exam Vitals: Vital Signs Temp Pulse Pulse Resp BP Pulse Ox 02/03/24 01:57 154/84 02/03/24 01:43 98.7 F 106 H 18 98 02/02/24 20:50 98 02/02/24 19:05 98.4 F 110 H 18 162/79 93 L 02/02/24 14:00 98.0 F 97 17 152/72 94 L 02/02/24 08:00 98.0 F 97 21 183/77 95 Intake and Output 02/02/24 02/02/24 02/03/24 14:59 22:59 06:59 Intake Total 420 Balance 420 Intake: Oral 420 Other: # Voids 4 3 - Constitutional General appearance: average body habitus, disheveled - EENT Eyes: PERRLA Ears: bilateral: normal - Neck Neck: normal ROM Carotids: bilateral: upstroke normal Thyroid: bilateral: normal size - Respiratory Respiratory: bilateral: wheezing - Cardiovascular Rhythm: regular Heart sounds: normal: S1, S2 - Gastrointestinal General gastrointestinal: normal bowel sounds, soft - Integumentary Integumentary: normal - Musculoskeletal Musculoskeletal: gait normal, generalized weakness, strength equal bilaterally - Psychiatric Psychiatric: A&O x's 3, appropriate affect, intact judgment & insight Results - Laboratory Findings CBC and BMP: 02/01/24 05:40 02/02/24 17:39 Abnormal lab findings: Abnormal Labs 01/31/24 01/31/24 02/01/24 18:24 21:20 00:24 Sodium 121 L 122 L Chloride 93 L 94 L Carbon Dioxide 18 L 20 L BUN Creatinine 0.32 L 0.32 L Glucose 145 H 117 H Osmolality 253 L Calcium 8.2 L 8.1 L AST 53 H ALT 41 H Total Protein 6.1 L Albumin 3.4 L Urine Protein 1+ H Urine Ketones 3+ H Urine Blood Small H Ur Leukocyte Esterase Large H Urine RBC 10 H Urine WBC 11 H Urine Bacteria Rare H Urine Mucus Rare H 02/01/24 02/01/24 02/02/24 05:40 18:00 05:07 Sodium 121 L 127 L 131 L Chloride 93 L Carbon Dioxide BUN 5.1 L Creatinine 0.33 L 0.3 L Glucose 128 H Osmolality Calcium 7.9 L 8.1 L AST ALT Total Protein Albumin Urine Protein Urine Ketones Urine Blood Ur Leukocyte Esterase Urine RBC Urine WBC Urine Bacteria Urine Mucus 02/02/24 17:39 Sodium 123 L Chloride Carbon Dioxide BUN Creatinine Glucose Osmolality Calcium AST ALT Total Protein Albumin Urine Protein Urine Ketones Urine Blood Ur Leukocyte Esterase Urine RBC Urine WBC Urine Bacteria Urine Mucus - Diagnostic Findings Chest x-ray: report reviewed, image reviewed (C x-rayreviewed finding consistent with COPD and bronchitis) Assessment and Plan Assessment: acute COPD exacerbation Possible baseline asthmatic bronchitis Tracheobronchitis Hyponatremia altered mental status metabolic encephalopathy likely due to hyponatremia Hypertension and hypertensive cardiovascular disease Dyslipidemia Plan: would recommend to add IV steroids antibiotics and bronchodilators continue supportive care increase activity as tolerated continue home medications and monitor observe sodium levels closely we'll follow Time with Patient: Greater than 30
[2024-02-03] MEDS: methylPREDNISolone SOD SUCCI 40 MG/ML 1 ML VIAL IV SCH (07:41)
[2024-02-03] MEDS ORDERED: methylPREDNISolone SOD SUCCI 40 MG/ML 1 ML VIAL IV SCH (08:00)
[2024-02-03] MEDS ORDERED: BUDESONIDE 0.25 MG/2 ML NEBU INHALATION SCH (08:00)
[2024-02-03] MEDS ORDERED: BUDESONIDE 0.5 MG/2 ML NEBU INHALATION SCH (08:00)
[2024-02-03] MEDS: IPRATROPIUM-ALBUTEROL 3 ML NEB INHALATION PRN (08:26)
[2024-02-03] MEDS: BUDESONIDE 0.5 MG/2 ML NEBU INHALATION SCH (08:26)
[2024-02-03 08:27] LABS: HCT 34.1 % (37.2-46.3); HGB 11.4 g/dL (12.0-15.0); MCH 29.7 pg (27.0-32.0); MCHC 33.4 g/dL (32.0-37.0); MCV 88.8 FL (80.0-97.0); NRBC Per 100 WBC 0 X 10*3/uL (0.00-0.01); Platelet Count 238 X 10*3/uL (140-440); RBC 3.84 X 10*6/uL (4.10-5.20); RDW 13.2 % (11.5-14.5); WBC 6.48 X 10*3/uL (4.50-10.00)
[2024-02-03 08:37] LABS: BUN/Creat Ratio 16.67 Ratio (12.00-20.00); Glucose 115 mg/dL (70-110)
[2024-02-03 08:38] LABS: ALT 36 U/L (8-44); AST 36 U/L (13-35); Albumin 3.1 g/dL (3.8-4.9); Albumin/Globulin Ratio 1.48 Ratio (1.60-3.17); Alkaline Phosphatase 44 U/L (41-126); Bilirubin, Conjugated <0.20 mg/dL (0.20-0.40); Carbon Dioxide 27.4 mmol/L (21.6-31.8); Chloride 99 mmol/L (96-109); Globulin 2.1 g/dL (1.6-3.3); Sodium 136 mmol/L (135-145); Total Bilirubin <0.2 mg/dL (0.3-1.2); Total Protein 5.2 g/dL (6.2-8.2)
[2024-02-03 09:14] LABS: Basophils # (A) 0.04 X 10*3/uL (0.00-0.10); Basophils % (A) 0.6 %; Eosinophils # (A) 0.18 X 10*3/uL (0.04-0.35); Eosinophils % (A) 2.8 %; Lymphocytes # (A) 1.82 X 10*3/uL (0.90-5.00); Lymphocytes % (A) 28.1 %; Monocytes % (A) 13.9 %; Neutrophils # (A) 3.52 X 10*3/uL (1.80-7.70); Neutrophils % (A) 54.3 %; RBC Morphology Normal (Normal)
--- NOTE | 2024-02-03 10:04 | P.PN ---
Subjective 88-year-old female, history of hypertension, vitamin D deficiency, hyperlipidemia presented to the ED with a chief complaint of cough. Patient states that she has had nonproductive cough for the past week seeming to worsen since onset. Patient does report a few episodes of fever and chills but it has since resolved; patient also does note some associated fatigue and nausea with this. Secondary to nausea patient notes decreased oral intake. Denies chest pain or shortness of breath. Denies fever or chills. No other complaints at this time. Patient reports her sodium was low about 2 weeks ago. Labs show that it was 126 and improved to 133 with IV saline. Laboratory studies reviewed. CBC unremarkable. Chemistry panel is significant for a sodium of 121, potassium 3.8 which is slightly hemolyzed. Patient will receive osmolality studies and gentle IV hydration. -Chest x-ray revealed no evidence of acute finding. -EKG interpreted me showing a sinus rhythm at [address] or T wave changes. [place] 170, QRS 90, QT/QTc 371/410. 02/01/2024 Patient is seen and evaluated resting comfortably in bed; reports marked improvement in strength Vital signs are reviewed and are stable Lab work is reviewed and reveals sodium level remains low at 122 this morning from 121 yesterday; patient is currently on IV fluids in form of normal saline --Nephrology has been consulted recommending to check random cortisol level, urine and serum osmolality with serum and urine and urine sodium level -- Patient is recommended to continue with fluid restriction; patient has received 1 tablet of sodium chloride -- Pending osmolality results on rest of blood work, [facility]24 patient is sitting up at the chair with her good appetite and eating well She is mildly tachypneic, no significant dyspnea no significant chest pain, but she has significant repeated coughing. Repeat chest x-ray showing COPD changes and some bronchitis. Patient already on doxycycline We will add Symbicort and Robitussin Patient also presents with hyponatremia which is improved up to 131 now, nephro roger is following the patient closely I discussed the case with her [id number] over the phone and all questions were answered 02/03/24 Patient is still wheezing and coughing while sitting in bed side Patient pulmonary consult was obtained today, IV Solu-Medrol 40 mg every 8 hours was added as well as inhalation steroids. Patient remains on p.o. doxycycline for COPD exacerbation and bronchitis, suspicion of pneumonia is very low based on the chest x-ray and low procalcitonin 0.06. Patient with no fever or leukocytosis. Sodium improved to 136 today Objective - Vital Signs Vital signs: Vital Signs Temp 97.6 F 02/03/24 06:55 Pulse 90 02/03/24 08:28 Resp 17 02/03/24 06:55 BP 146/77 02/03/24 06:55 Pulse Ox 97 02/03/24 08:28 FiO2 Intake & Output 02/02/24 02/03/24 02/03/24 18:59 06:59 18:59 Intake Total 420 118 Balance 420 118 Intake: Oral 420 118 Other: # Voids 4 3 - Exam GENERAL: The patient is alert and oriented x3, not in any acute distress. Well developed, well nourished. HEENT: Pupils are round and equally reacting to light. EOMI. No scleral icterus. No conjunctival pallor. Normocephalic, atraumatic. No pharyngeal erythema. No thyromegaly. CARDIOVASCULAR: S1 and S2 present. No murmurs, rubs, or gallops. PULMONARY: Chest is clear to auscultation, no wheezing , no crackles. ABDOMEN: Soft, nontender, nondistended, normoactive bowel sounds. No palpable organomegaly. MUSCULOSKELETAL: No joint swelling or deformity. EXTREMITIES: No cyanosis, clubbing, or pedal edema. NEUROLOGICAL: Gross neurological examination did not reveal any focal deficits. SKIN: No rashes. no petechiae. - Labs CBC & Chem 7: 02/03/24 04:32 02/03/24 04:32 Labs: Abnormal Lab Results - Last 24 Hours (Table) 02/02/24 02/03/24 02/03/24 Range/Units 17:39 04:32 04:32 RBC 3.84 L (4.10-5.20) X 10*6/uL Hgb 11.4 L (12.0-15.0) g/dL Hct 34.1 L (37.2-46.3) % MPV 9.0 L (9.5-12.2) FL Sodium 123 L (137-145) mmol/L BUN 5.0 L (9.0-27.0) mg/dL Creatinine 0.3 L (0.6-1.5) mg/dL Glucose 115 H (70-110) mg/dL Calcium 8.0 L (8.7-10.3) mg/dL Total Bilirubin <0.2 L (0.3-1.2) mg/dL AST 36 H (13-35) U/L Total Protein 5.2 L (6.2-8.2) g/dL Albumin 3.1 L (3.8-4.9) g/dL Albumin/Globulin Ratio 1.48 L (1.60-3.17) Ratio Assessment and Plan Assessment: bronchitis on the top of COPD with mild COPD exacerbation Hyponatremia Mild metabolic encephalopathy Generalized weakness Hypertension Hyperlipidemia Vitamin D deficiency Plan: Continue with IV steroid Continue with doxycycline Add Symbicort Robitussin DM Nephrology team are following for hyponatremia as they are the specialist we will defer the management to them GI prophylaxis: Pepcid DVT prophylaxis; SCDs/heparin CODE STATUS; DNR PT/OT Prognosis is guarded
[2024-02-03] MEDS ORDERED: DEXTROSE 50% SYRINGE 50 ML IVP PRN ×2 (10:13)
--- NOTE | 2024-02-03 11:55 | P.PN ---
Subjective patient is seen for follow-up for hyponatremia. Serum sodium improved with one dose of sodium chloride And fluid restriction. Serum sodium was 131 yesterday and dropped again to 123 last night. Another gram of sodium chloride was given last evening and sodium has improved to 136 today. Patient is currently walking in the hallway. Objective - Vital Signs Vital signs: Vital Signs Temp 97.6 F 02/03/24 06:55 Pulse 88 02/03/24 11:27 Resp 17 02/03/24 06:55 BP 146/77 02/03/24 06:55 Pulse Ox 97 02/03/24 08:28 FiO2 Intake & Output 02/02/24 02/03/24 02/03/24 18:59 06:59 18:59 Intake Total 420 118 Balance 420 118 Intake: Oral 420 118 Other: Voiding Method Toilet # Voids 4 3 - Exam patient is awake, comfortable, no acute distress. Alert oriented 3 walking in the hallway. DENTAL HYGIENE PROFESSOR exam grossly intact - Labs CBC & Chem 7: 02/03/24 04:32 02/03/24 04:32 Labs: Abnormal Lab Results - Last 24 Hours (Table) 02/02/24 02/03/24 02/03/24 Range/Units 17:39 04:32 04:32 RBC 3.84 L (4.10-5.20) X 10*6/uL Hgb 11.4 L (12.0-15.0) g/dL Hct 34.1 L (37.2-46.3) % MPV 9.0 L (9.5-12.2) FL Sodium 123 L (137-145) mmol/L BUN 5.0 L (9.0-27.0) mg/dL Creatinine 0.3 L (0.6-1.5) mg/dL Glucose 115 H (70-110) mg/dL Calcium 8.0 L (8.7-10.3) mg/dL Total Bilirubin <0.2 L (0.3-1.2) mg/dL AST 36 H (13-35) U/L Total Protein 5.2 L (6.2-8.2) g/dL Albumin 3.1 L (3.8-4.9) g/dL Albumin/Globulin Ratio 1.48 L (1.60-3.17) Ratio Assessment and Plan Assessment: 1. Hyponatremia, patient appears euvolemic. possible SIADH. Sodium did not improve with IV saline but improved with fluid restriction and one dose of sodium chloride. Urine osmolality at 560. Urine sodium at 80. Sodium had d ropped again yesterday and improved with repeat sodium chloride tab. Patient will likely need half a tablet daily. I will recheck serum sodium this evening. Continue with fluid restriction. 2. Weakness possibly related to electrolyte imbalance. 3. History of hypertension maintained on lisinopril. Plan: continue with fluid restriction. Repeat sodium this evening. Patient is encouraged to increase oral intake particularly protein.
[2024-02-03 11:57] LABS: Glucose,Whole Blood 191 mg/dL (70-110)
[2024-02-03] MEDS: INSULIN ASPART (NovoLOG) 100 UNIT/ML VIAL SQ SCH (13:31)
[2024-02-03] MEDS ORDERED: SODIUM CHLORIDE TAB 1 GM TAB PO STA (16:19)
[2024-02-03 16:48] LABS: Glucose,Whole Blood 216 mg/dL (70-110)
--- NOTE | 2024-02-03 16:53 | CDI ---
Documentation Clarification Form Date: 02/03/2024 04:32:14 PM From: Laura De Dios RN, CCDS Phone: [phone] Admit Date: 01/31/2024 09:33:00 PM Patient Name: Daria Santo Visit Number: [id number] Discharge Date: ATTENTION: The Clinical Documentation Specialists (CDI) and [facility] Coding Staff appreciate your assistance in clarifying documentation. Please respond to the clarification below the line at the bottom and electronically sign. The CDI & [facility] Coding staff will review the response and follow-up if needed. Please note: Queries are made part of the Legal Health Record. If you have any questions, please contact the author of this message via ITS. Dr. Chu E Sheet Conflicting documentation has been found in the medical record. As attending physician, please provide clarification. 02/01 Nephrology progress note: Hyponatremia, patient appears euvolemic, possible SIADH. Sodium did not improve with IV saline but improved with fluid restriction and one dose of sodium chloride. Urine osmolality at 560. Urine sodium not done. 02/01 Ur random sodium 80 02/02 attending progress note: Sodium improved to 136 today. Hyponatremia History/Risk Factors: Hypertension Clinical Indicators: 88-year-old female presented to the ED with a chief complaint of cough, nonproductive cough for the past week. Also does note some associated fatigue and nausea with decreased oral intake. 01/30 VS 160/68 117 18 98.4 97% Labs: Na+ 121 CL 923 CO2 18 01/30 CXR: No acute pulmonary disease. 02/01 CXR: COPD, Prominent peribranchial densities could reflect superimposed acute bronchitis. Treatment: Continue with fluid restriction. Monitor Sodium per orders Please clarify which diagnosis is most appropriate: [ ] Possible SIADH. Present on admission [ x ] Hyponatremia [ ] Other (please specify) [ ] Unable to determine (Template Last Revised: October 2020) MTDD
[2024-02-03] MEDS: SODIUM CHLORIDE TAB 1 GM TAB PO STA (17:33)
[2024-02-03 20:26] LABS: Glucose,Whole Blood 185 mg/dL (70-110)
[2024-02-04 04:59] LABS: African American GFR (CKD) >90 (>60 ml/min/1.73 sqM); Anion Gap 4 mmol/L; Blood Urea Nitrogen 13 mg/dL (7-17); Calcium 8.2 mg/dL (8.4-10.2); Carbon Dioxide 26 mmol/L (22-30); Chloride 98 mmol/L (98-107); Glucose 200 mg/dL (74-99); Non-African American GFR(CKD) >90 (>60 ml/min/1.73 sqM); Potassium 3.6 mmol/L (3.5-5.1); Sodium 128 mmol/L (137-145)
[2024-02-04 05:32] LABS: Glucose,Whole Blood 198 mg/dL (70-110)
[2024-02-04] MEDS: FUROSEMIDE 20 MG TAB PO STA (07:26)
[2024-02-04 11:42] LABS: Glucose,Whole Blood 197 mg/dL (70-110)
--- NOTE | 2024-02-04 12:03 | XR ---
EXAMINATION TYPE: XR chest 1V portable DATE OF EXAM: 02/04/2024 Comparison: 02/02/2024 Clinical History: 88-year-old female sob, prior to dc Findings: Heart is normal size. Hyperinflation. Interstitial density may be chronic. No yemi consolidation or pleural effusion. Impression: COPD. Interstitial density may be chronic. Consider superimposed bronchitis. No focal infiltrate seen .
--- NOTE | 2024-02-04 12:52 | P.PN ---
Subjective patient is seen for follow-up for hyponatremia. Serum sodium improved with sodium chloride tab and fluid restriction. Serum sodium 128 early this morning. Patient received a dose of Lasix 20 mg. Repeat sodium is pending. She remains on fluid restriction. no complaints today. Overall feeling better. Objective - Vital Signs Vital signs: Vital Signs Temp 97.4 F L 02/04/24 06:59 Pulse 108 H 02/04/24 08:56 Resp 16 02/04/24 06:59 BP 133/74 02/04/24 06:59 Pulse Ox 96 02/04/24 08:42 FiO2 Intake & Output 02/03/24 02/04/24 02/04/24 18:59 06:59 18:59 Intake Total 598 240 Output Total 400 Balance 598 -160 Intake: Oral 598 240 Output: Urine 400 Other: Voiding Method Toilet # Voids 3 2 2 # Bowel Movements 1 2 - Exam patient is awake, comfortable, no acute distress. 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 Hyponatremia, patient appears euvolemic. possible SIADH. Sodium did not imp rove with IV saline but improved with fluid restriction and sodium chloride tab. Urine osmolality at 560. Urine sodium at 80. I will recheck serum sodium this afternoon. Continue with fluid restriction. 2. Weakness possibly related to electrolyte imbalance. 3. History of hypertension maintained on lisinopril. Plan: continue with fluid restriction. Status post Lasix 20 mg by mouth this morning Repeat sodium this evening. Patient is encouraged to increase oral intake particularly protein.
[2024-02-04 16:48] LABS: Glucose,Whole Blood 155 mg/dL (70-110)
[2024-02-04 21:06] LABS: Glucose,Whole Blood 167 mg/dL (70-110)
[2024-02-04] MEDS: SODIUM CHLORIDE TAB 1 GM TAB PO SCH (21:32)
--- NOTE | 2024-02-04 22:00 | P.PN ---
Subjective Progress Note Date: 02/04/24 Principal diagnosis: acute COPD exacerbation Possible baseline asthmatic bronchitis Tracheobronchitis Hyponatremia altered mental status metabolic encephalopathy likely due to hyponatremia Hypertension and hypertensive cardiovascular disease Dyslipidemia 02/04/2024, patient seen eval examined during rounds labs reviewed medications reviewed,patient remains afebrile slightly tachycardic, chest x-ray done today reviewed with prior x-ray, COPD-like changes with superimposed bronchitis essentially not much change, patient remains on bronchodilator with DuoNeb along with the doxycycline IV Solu-Medrol and along with Pulmicort, would recommend to continue antibiotics steroids can be changed to oral at the time of discharge patient is a 88-year-old female presented emergency department with cough nonproductive for last 1 week progressively getting worse in addition associated with fever and chills, symptoms progressed decided to come into [employer] further evaluation, on specific questioning denies any chest pain sputum production hemoptysis, denies any weight loss appetite has been good however has been feeling weak her lab workup included some hyponatremia with sodium 126 however improved with sertraline to 133, chest x-ray COPD-like changes Objective - Vital Signs Vital signs: Vital Signs Temp 97.8 F 02/04/24 14:00 Pulse 113 H 02/04/24 14:00 Resp 16 02/04/24 14:00 BP 170/81 02/04/24 14:00 Pulse Ox 96 02/04/24 14:00 FiO2 Intake & Output 02/04/24 02/04/24 02/05/24 06:59 18:59 06:59 Intake Total 360 Output Total 515 Balance -155 Intake: Oral 360 Output: Urine 515 Other: # Voids 2 2 # Bowel Movements 2 - Exam Constitutional General appearance: average body habitus, disheveled - EENT Eyes: PERRLA Ears: bilateral: normal - Neck Neck: normal ROM Carotids: bilateral: upstroke normal Thyroid: bilateral: normal size - Respiratory Respiratory: bilateral: wheezing - Cardiovascular Rhythm: regular Heart sounds: normal: S1, S2 - Gastrointestinal General gastrointestinal: normal bowel sounds, soft - Integumentary Integumentary: normal - Musculoskeletal Musculoskeletal: gait normal, generalized weakness, strength equal bilaterally - Psychiatric Psychiatric: A&O x's 3, appropriate affect, intact judgment & insight - Labs CBC & Chem 7: 02/03/24 04:32 02/04/24 15:52 Labs: Abnormal Lab Results - Last 24 Hours (Table) 02/04/24 02/04/24 02/04/24 Range/Units 03:42 05:31 11:39 Sodium 128 L (137-145) mmol/L Creatinine 0.30 L (0.52-1.04) mg/dL Glucose 200 H (74-99) mg/dL POC Glucose (mg/dL) 198 H 197 H (70-110) mg/dL Calcium 8.2 L (8.4-10.2) mg/dL 02/04/24 02/04/24 02/04/24 Range/Units 15:52 16:46 21:05 Sodium 128 L (137-145) mmol/L Creatinine (0.52-1.04) mg/dL Glucose (74-99) mg/dL POC Glucose (mg/dL) 155 H 167 H (70-110) mg/dL Calcium (8.4-10.2) mg/dL Assessment and Plan Assessment: acute COPD exacerbation Possible baseline asthmatic bronchitis Tracheobronchitis Hyponatremia, altered mental status metabolic encephalopathy likely due to hyponatremia Hypertension and hypertensive cardiovascular disease Dyslipidemia Plan: would recommend to continue IV steroids antibiotics and bronchodilators continue supportive care increase activity as tolerated continue home medications and monitor observe sodium levels closely we'll follow, at the time of discharge IV steroids can be switched to oral, continue to monitor Time with Patient: Greater than 30
--- NOTE | 2024-02-04 22:37 | P.PN ---
Subjective 88-year-old female, history of hypertension, vitamin D deficiency, hyperlipidemia presented to the ED with a chief complaint of cough. Patient states that she has had nonproductive cough for the past week seeming to worsen since onset. Patient does report a few episodes of fever and chills but it has since resolved; patient also does note some associated fatigue and nausea with this. Secondary to nausea patient notes decreased oral intake. Denies chest pain or shortness of breath. Denies fever or chills. No other complaints at this time. Patient reports her sodium was low about 2 weeks ago. Labs show that it was 126 and improved to 133 with IV saline. Laboratory studies reviewed. CBC unremarkable. Chemistry panel is significant for a sodium of 121, potassium 3.8 which is slightly hemolyzed. Patient will receive osmolality studies and gentle IV hydration. -Chest x-ray revealed no evidence of acute finding. -EKG interpreted me showing a sinus rhythm at [address] or T wave changes. AL 170, QRS 90, QT/QTc 371/410. 02/01/2024 Patient is seen and evaluated resting comfortably in bed; reports marked improvement in strength Vital signs are reviewed and are stable Lab work is reviewed and reveals sodium level remains low at 122 this morning from 121 yesterday; patient is currently on IV fluids in form of normal saline --Nephrology has been consulted recommending to check random cortisol level, urine and serum osmolality with serum and urine and urine sodium level -- Patient is recommended to continue with fluid restriction; patient has received 1 tablet of sodium chloride -- Pending osmolality results on rest of blood work, [facility] 02/02/2024 patient is sitting up at the chair with her good appetite and eating well She is mildly tachypneic, no significant dyspnea no significant chest pain, but she has significant repeated coughing. Repeat chest x-ray showing COPD changes and some bronchitis. Patient already on doxycycline We will add Symbicort and Robitussin Patient also presents with hyponatremia which is improved up to 131 now, nephro roger is following the patient closely I discussed the case with her [id number] over the phone and all questions were answered 02/03/24 Patient is still wheezing and coughing while sitting in bed side Patient pulmonary consult was obtained today, IV Solu-Medrol 40 mg every 8 hours was added as well as inhalation steroids. Patient remains on p.o. doxycycline for COPD exacerbation and bronchitis, suspicion of pneumonia is very low based on the chest x-ray and low procalcitonin 0.06. Patient with no fever or leukocytosis. Sodium improved to 136 today 02/04/2024 Patient feels improved, patient tells me she is ready to go home However I think patient will benefit from IV steroids for another 24 hours. She still has some scattered wheezing although she looks much better than a couple days ago. She states she is able to walk to the bathroom and in the room without exertional dyspnea. No other new complaints. No urinary signs symptoms like dysuria or change in frequency or urgency Besides we need to monitor fluctuating sodium needs to be monitored. Patient is status post sodium tablets and Lasix today Case was discussed with nephrology team and their input is appreciated Objective - Vital Signs Vital signs: Vital Signs Temp 98.4 F 02/04/24 19:29 Pulse 87 02/04/24 19:29 Resp 18 02/04/24 19:29 BP 146/70 02/04/24 19:29 Pulse Ox 93 L 02/04/24 19:29 FiO2 Intake & Output 02/04/24 02/04/24 02/05/24 06:59 18:59 06:59 Intake Total 360 Output Total 515 Balance -155 Intake: Oral 360 Output: Urine 515 Other: # Voids 2 2 # Bowel Movements 2 - Exam GENERAL: The patient is alert and oriented x3, not in any acute distress. Well developed, well nourished. HEENT: Pupils are round and equally reacting to light. EOMI. No scleral icterus. No conjunctival pallor. Normocephalic, atraumatic. No pharyngeal erythema. No thyromegaly. CARDIOVASCULAR: S1 and S2 present. No murmurs, rubs, or gallops. PULMONARY: Chest is clear to auscultation, no wheezing , no crackles. ABDOMEN: Soft, nontender, nondistended, normoactive bowel sounds. No palpable organomegaly. MUSCULOSKELETAL: No joint swelling or deformity. EXTREMITIES: No cyanosis, clubbing, or pedal edema. NEUROLOGICAL: Gross neurological examination did not reveal any focal deficits. SKIN: No rashes. no petechiae. - Labs CBC & Chem 7: 02/03/24 04:32 02/04/24 15:52 Labs: Abnormal Lab Results - Last 24 Hours (Table) 02/04/24 02/04/24 02/04/24 Range/Units 03:42 05:31 11:39 Sodium 128 L (137-145) mmol/L Creatinine 0.30 L (0.52-1.04) mg/dL Glucose 200 H (74-99) mg/dL POC Glucose (mg/dL) 198 H 197 H (70-110) mg/dL Calcium 8.2 L (8.4-10.2) mg/dL 02/04/24 02/04/24 02/04/24 Range/Units 15:52 16:46 21:05 Sodium 128 L (137-145) mmol/L Creatinine (0.52-1.04) mg/dL Glucose (74-99) mg/dL POC Glucose (mg/dL) 155 H 167 H (70-110) mg/dL Calcium (8.4-10.2) mg/dL Assessment and Plan Assessment: bronchitis on the top of COPD with mild COPD exacerbation Hyponatremia Mild metabolic encephalopathy Generalized weakness Hypertension Hyperlipidemia Vitamin D deficiency Plan: Continue with IV steroid Continue with doxycycline Add Symbicort Robitussin DM Nephrology team are following for hyponatremia as they are the specialist we will defer the management to them GI prophylaxis: Pepcid DVT prophylaxis; SCDs/heparin CODE STATUS; DNR PT/OT Prognosis is guarded
[2024-02-05 05:58] LABS: Glucose,Whole Blood 144 mg/dL (70-110)
[2024-02-05 11:46] LABS: Glucose,Whole Blood 115 mg/dL (70-110)
[2024-02-05 13:04] VITALS: BP 168/81; PULSE 99; RESP 16; TEMP 97.7
--- NOTE | 2024-02-05 13:23 | P.PN ---
Subjective patient is seen for follow-up for hyponatremia. Serum sodium improved with sodium chloride tab and fluid restriction. no complaints today. Overall feeling better. patient wants to go home. Objective - Vital Signs Vital signs: Vital Signs Temp 97.7 F 02/05/24 13:02 Pulse 99 02/05/24 13:02 Resp 16 02/05/24 13:02 BP 168/81 02/05/24 13:02 Pulse Ox 97 02/05/24 13:02 FiO2 Intake & Output 02/04/24 02/05/24 02/05/24 18:59 06:59 18:59 Intake Total 360 240 Output Total 515 Balance -155 240 Intake: Oral 360 240 Output: Urine 515 Other: Voiding Method Toilet # Voids 2 2 1 # Bowel Movements 2 1 - Exam patient is awake, comfortable, no acute distress. 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 Hyponatremia, patient appears euvolemic. possible SIADH. Sodium did not improve with IV saline but improved with fluid restriction and sodium chloride tab. Urine osmolality at 560. Urine sodium at 80. sodium did not improve much with Lasix and therefore she was given another dose of sodium chloride. Serum sodium is 134 today. Continue with fluid restriction. 2. Weakness possibly related to electrolyte imbalance. 3. History of hypertension maintained on lisinopril. Plan: continue with fluid restriction. patient will need to continue with sodium chloride tab as outpatient. We can likely decrease the dose to every other day in 1 week depending on repeat labs. Patient will need to follow-up in the office in 1 week's time. Repeat labs as outpatient in 2-3 days. Patient is encouraged to increase oral intake particularly protein.
[2024-02-05] MEDS: predniSONE 10 MG TAB PO STA (13:36)
--- NOTE | 2024-02-05 23:23 | P.DS ---
Providers Date of admission: 01/31/24 21:33 Attending physician: Neo Forbes MD Consults: 01/31/24 21:32 Consult Physician Urgent Consulting Provider: Missy Martínez Consult Reason/Comments: Hyponatremia Do you want consulting provider notified?: Yes 02/03/24 05:58 Consult Physician Urgent Consulting Provider: Javon Dubois Consult Reason/Comments: bronchitis Do you want consulting provider notified?: Already Contacted Primary care physician: Glenny Cancino Hospital Course: Diagnoses: bronchitis on the top of COPD with mild COPD exacerbation Hyponatremia Mild metabolic encephalopathy Generalized weakness Hypertension Hyperlipidemia Vitamin D deficiency Hospital course: 88-year-old female, history of hypertension, vitamin D deficiency, hype rlipidemia presented to the ED with a chief complaint of cough. Patient states that she has had nonproductive cough for the past week seeming to worsen since onset. Patient was found to have acute hyponatremia associated with a bronchitis with mild COPD exacerbation. Patient with improvement with IV fluid and Reproduction Specialist was on the case, she received P sodium chloride tablets and 1 small dose of oral Lasix. Patient's sodium improved up to 135 prior to discharge while patient became asymptomatic. Her breathing improved with bronchodilators and IV Solu-Medrol. Steroids switched to tapered dose upon discharge with prednisone burst taper Patient was feeling better since yesterday and today as well, she is agreeable to go home and follow-up outpatient She denies any other new complaint She was cleared for discharge by search manager and guest experience specialist Problems and management plan were discussed with the patient and he verbalized understanding and acceptance Patient was found stable and can be discharged home in guarded prognosis however he needs follow-up as an outpatient. Patient was instructed to follow up with PCP within one week and patient agrees Patient was instructed to follow-up with nephrology and pulmonology clinic upon discharge as in discharge instructions Physical exam Gen: patient is a AAOx3, no distress CVS: S1-S2, RRR, no murmur Lungs: B/L CTA, no wheezing Abdomen: soft, no distention, no tenderness, positive bowel sounds Extremity: no leg edema or induration Time spent more than 35 minutes Patient Condition at Discharge: Good Plan - Discharge Summary New Discharge Prescriptions: New predniSONE 10 mg PO DIRECTED #30 tab Doxycycline [Vibramycin] 100 mg PO BID 2 Days #3 cap Sodium Chloride Tab 1 gm PO DAILY #30 tab Continue Alpha Lipoic Acid 200 mg PO DAILY levOCARNitine [l-Carnitine] 500 mg PO DAILY Winston-3 Fatty Acids/Fish Oil [Fish Oil 1,000 mg Softgel] 1 cap PO DAILY Calcium Carbonate/Vitamin D3 [Calcium 600-Vit D3 10 mcg (400 Iu)] 2 tab PO DAILY Vit C/E/Zn/Coppr/Lutein/Zeaxan [Preservision Areds 2 Softgel] 1 cap PO BID Latanoprost [Xalatan 0.005%] 1 drop BOTH EYES HS Cholecalciferol (Vitamin D3) [Vitamin D3 (3000 Iu)] 75 mcg PO DAILY Aspirin 81 mg PO DAILY 21 Days #21 tab Clopidogrel [Plavix] 75 mg PO DAILY 30 Days #30 tablet lisinopriL [Zestril] 5 mg PO DAILY Atorvastatin [Lipitor] 40 mg PO HS #30 tab Acetaminophen Tab [Tylenol] 650 mg PO Q6HR PRN tab PRN Reason: Mild Pain Or Fever > 100.5 Discharge Medication List Alpha Lipoic Acid 200 mg PO DAILY 07/29/19 [History] Calcium Carbonate/Vitamin D3 [Calcium 600-Vit D3 10 mcg (400 Iu)] 2 tab PO DAILY 07/29/19 [History] Latanoprost [Xalatan 0.005%] 1 drop BOTH EYES HS 07/29/19 [History] Winston-3 Fatty Acids/Fish Oil [Fish Oil 1,000 mg Softgel] 1 cap PO DAILY 07/29/19 [History] Vit C/E/Zn/Coppr/Lutein/Zeaxan [Preservision Areds 2 Softgel] 1 cap PO BID 07/29/19 [History] levOCARNitine [l-Carnitine] 500 mg PO DAILY 07/29/19 [History] Cholecalciferol (Vitamin D3) [Vitamin D3 (3000 Iu)] 75 mcg PO DAILY 01/16/24 [ History] lisinopriL [Zestril] 5 mg PO DAILY 01/16/24 [History] Acetaminophen Tab [Tylenol] 650 mg PO Q6HR PRN tab 01/20/24 [Rx] Aspirin 81 mg PO DAILY 21 Days #21 tab 01/20/24 [Rx] Atorvastatin [Lipitor] 40 mg PO HS #30 tab 01/20/24 [Rx] Clopidogrel [Plavix] 75 mg PO DAILY 30 Days #30 tablet 01/20/24 [Rx] Doxycycline [Vibramycin] 100 mg PO BID 2 Days #3 cap 02/05/24 [Rx] Sodium Chloride Tab 1 gm PO DAILY #30 tab 02/05/24 [Rx] predniSONE 10 mg PO DIRECTED #30 tab 02/05/24 [Rx] Follow up Appointment(s)/Referral(s): Missy Martínez MD [STAFF PHYSICIAN] - 1 Week (Office will call you with your appointment..) Glenny Cancino DO [Primary Care Provider] - 1-2 days (Office closed for Lunch. Please call office for your appointment.) Javon Dubois MD [STAFF PHYSICIAN] - 02/24/24 10:30 am Ambulatory/Diagnostic Orders: Basic Metabolic Panel [LAB.AMB] Time Frame: 3 Days, Location: None Selected Patient Instructions/Handouts: Hyponatremia (DC), Hypernatremia (DC) Activity/Diet/Wound Care/Special Instructions: Basic Metabolic Panel in 3-4 days Discharge Disposition: HOME SELF-CARE
== END 2024-02-05 15:21 | disposition home or self-care (01) | DRG 190 ==
LOC: EC 17:54 → 5NMEDONC 21:33 → 4SSUR 02-01 06:19
PROVIDERS: ADMIT Internal Medicine; ATTEND Internal Medicine
DX: J44.0 Chronic obstructive pulmonary disease with (acute) lower respiratory infection (principal); G93.41 Metabolic encephalopathy; E87.1 Hypo-osmolality and hyponatremia; J20.9 Acute bronchitis, unspecified; J44.1 Chronic obstructive pulmonary disease with (acute) exacerbation; I11.9 Hypertensive heart disease without heart failure; Z66 Do not resuscitate; E78.5 Hyperlipidemia, unspecified; E55.9 Vitamin D deficiency, unspecified; H35.30 Unspecified macular degeneration; M62.50 Muscle wasting and atrophy, not elsewhere classified, unspecified site; Z79.82 Long term (current) use of aspirin; Z79.02 Long term (current) use of antithrombotics/antiplatelets; Z79.899 Other long term (current) drug therapy
CPT/HCPCS: 36415; 71045; 71046; 80048; 80053; 80076; 81001; 83930; 83935; 84145; 84295; 84300; 85025; 93005; 94640; 94760; 96361; 96374; 96375; 99285